=== PATIENT | female | born 1975 | race Caucasian/White ===

== ENCOUNTER 2016-02-21 12:34 | Emergency (ER) | payer OTHER ==
[~2016-02-21 12:34] MED LIST: ACET30TAB PO; ALBU17IN INH; CLEO300C2 PO; IBUP-1114 PO
[2016-02-21] MEDS ORDERED: methylPREDNISolone INJ 125 MG/2 ML VIAL (J2930) As Ordered ONE (14:06)
[2016-02-21] MEDS ORDERED: MORPHINE 4 MG/ML 1ML SYRINGE As Ordered ONE (14:06)
--- NOTE | 2016-02-21 14:46 | EDDOCDS ---
Nurse's Notes [facility] Name: Anjali Roach Age: 40 yrs Sex: Female : 1975 Arrival Date: 02/21/2016 Time: 12:34 Bed TR8 Private MD: NO PRIMARY PHYSICIAN, . Diagnosis: Lumbago with sciatica, left side Presentation: 02/20 12:38 Presenting complaint: Patient states: Low back and left hip pain began yesterday no mlb1 known injury. Acute neurological deficits are not present. Mechanism of Injury: No Mechanism of Injury. Adult Sepsis Screening: The patient does not have new or worsening altered mentation. Patient's respiratory rate is less than 22. Systolic blood pressure is greater than 100. Patient has a qSOFA score of 0- Negative Sepsis Screen. Suicide/Homicide risk assessment- the patient denies having any suicidal and/or homicidal ideations and does not present with any other emotional, behavioral or mental health complaints. Status: Patient is not a automotive service assistant or dependent. Transition of care: patient was not received from another setting of care. 12:38 Acuity: MIKKI Level 4 mlb1 12:38 Method Of Arrival: Walkin/Carried/Asstd mlb1 Triage Assessment: 12:40 General: Appears in no apparent distress, Behavior is appropriate for age, cooperative. mlb1 Pain: Location: low back area, left hip Pain currently is 8 out of 10 on a pain scale. HIV screening NA for this visit Offered previously. Musculoskeletal: Range of motion intact in all extremities. Historical: - Allergies: Flexeril (Hives); Toradol (Hives, Swelling); - Home Meds: 1. ibuprofen 800 mg Oral tab every 8 hours as needed (Last dose: 02/21/2016 11:30) - PMHx: Asthma; bursitis left hip; Chronic Back and Hip Pain; Migraines; Rheumatoid Arthritis; - PSHx: Tubal ligation; oral surgery; - Social history: Smoking status: Patient uses tobacco products, heavy tobacco smoker. No barriers to communication noted, The patient speaks fluent Cymraes, Speaks appropriately for age. - Family history: Not pertinent. - : The pt / caregiver states he / she is not on anticoagulants. Home medication list is obtained from the patient. - Exposure Risk Screening:: None identified. Screenin:13 Screening information is obtained from the patient. Fall risk: No risks identified. ms18 Assistance ADL's: requires no assistance with activities of daily living. Abuse/DV Screen: The patient / caregiver reports he/she is: not in a situation that causes fear, pain or injury. Nutritional screening: No deficits noted. Advance Directives: There is no living will. home support is adequate. Assessment: 14:13 General: Appears in no apparent distress, comfortable, Behavior is appropriate for age, ms18 cooperative. Pain: Location: left lower back and left hip Pain currently is 9 out of 10 on a pain scale. Neurological: No deficits noted. Respiratory: No deficits noted. Derm: Skin is pink, warm & dry. 14:42 General: Appears in no apparent distress, comfortable, obese, Behavior is appropriate ttb for age, cooperative, pleasant. General: PT states that the site where she had the morphine injection is itching a little bit. Looked at the area and it was slightly reddened. Pt states that she feels fine and denies and SOB. Provider informed of this. PT ambulating with no assistance. Pain: Pain currently is 5 out of 10 on a pain scale. Neurological: No deficits noted. Respiratory: No deficits noted. Derm: Skin is pink, warm & dry. Vital Signs: 12:37 BP 116 / 78; Pulse 93; Resp 18; Temp 98.4; Pulse Ox 100% ; Weight 108.86 kg; Height 5 elp ft. 2 in. (157.48 cm); Pain 8/10; 14:39 BP 135 / 83; Pulse 96; Resp 18; Pulse Ox 100% ; Pain 5/10; ms18 14:39 Pain 5/10; ms18 12:37 Body Mass Index 43.90 (108.86 kg, 157.48 cm) [facility] Vitals: 12:37 Log In Time: February 21, 2016 at 12:35. [facility] ED Course: 12:35 Patient visited by Juanita Logan PCA. elp 12:35 Patient moved to Waiting elp 12:36 NO PRIMARY PHYSICIAN, . is Private Physician. elp 12:36 Patient moved to Pre RCE elp 12:37 Patient visited by Juanita Logan PCA. elp 12:38 Patient visited by Corky Hdz, RN. mlb1 12:39 Triage Initiated mlb1 12:40 Patient visited by Corky Hdz RN. mlb1 13:37 Patient moved to Triage 2 mlb1 13:54 Bernard [facility]ord[facility]. cc10 13:54 Ophelia Daniels MD is Attending Physician. cc10 13:54 Patient visited by Bernard Giordano PA-C. cc10 13:54 Patient visited by Bernard Giordano PA-C. cc10 14:13 Patient visited by Kathie Tijerina RN. ms18 14:13 The patient / caregiver is instructed regarding the plan of care and ED course. ms18 Accompanied by Significant Other, Patient has correct armband on for positive identification. Property :Personal belongings accompany Pt. 14:13 No IV's were initiated during this patient's visit. No procedures done that require ms18 assistance. 14:31 [facility] is Referral Physician. cc10 14:40 Patient moved to TR8 ms18 14:42 [facility] Payment Agreement was scanned into [employer] and attached to record. mm15 Administered Medications: 14:13 Drug: methylPREDNISolone Sodium Succinate 125 mg [methylprednisolone sodium succ 125 mg ms18 solution for injection (125 mg)] Route: IM; Site: right gluteus; 14:39 Follow up: Response: No Adverse Reaction ms18 14:13 Drug: morphine 4 mg [morphine 4 mg/mL intravenous cartridge (1 mL)] Route: IM; Site: ms18 left gluteus; 14:39 Follow up: Pain 5/10 Adult; Response: No Adverse Reaction; Pain is decreased ms18 Order Results: There are currently no results for this order. Outcome: 14:31 Discharge ordered by Provider. cc10 14:42 Discharge Assessment: Patient awake, alert and oriented x 3. No cognitive and/or ttb functional deficits noted. Patient verbalized understanding of disposition instructions. patient administered narcotics - yes. Pt provided with safe discharge. The following High Risk Discharge criteria are identified: None. Discharged to home ambulatory. Condition: good Condition: stable Condition: improved. Discharge instructions given to patient, Instructed on discharge instructions, follow up and referral plans. medication usage, Demonstrated understanding of instructions, medications, Pt was receptive of discharge instructions/ teaching. Prescriptions given X 2. Instructed on no driving heavy equipment. No special radiology studies were completed. 14:45 Patient left the ED. ttb Signatures: Corky Hdz RN RN mlb1 Judith Espinosa, RN RN ttb Jw Quintero mm15 Juanita Logan, PLANNING INTERN PLANNING INTERN elp Bernard Giordano, KALLIEC PAAnaC cc10 Kathie Tijerina,RN RN ms18 MTDD
--- NOTE | 2016-02-21 14:46 | EDDOCDS ---
Physician Documentation [facility] Name: Anjali Roach Age: 40 yrs Sex: Female : 1975 Arrival Date: 02/21/2016 Time: 12:34 Bed TR8 Private MD: NO PRIMARY PHYSICIAN, . Disposition: 02/21/16 14:31 Discharged to Home/Self Care. Impression: Lumbago with sciatica, left side. - Condition is Stable. - Discharge Instructions: Sciatica. - Prescriptions for Ultram 50 mg Oral Tablet - take 1 tablet by ORAL route every 6 hours As needed MDD: 4 tabs; 16 tablet. Prednisone 20 mg Oral Tablet - take 2 tablet by ORAL route once daily for 5 days; 10 tablet. - Medication Reconciliation, Local Pharmacy Hours form. - Follow up: Emergency Department; When: As needed; Reason: Worsening of conditions. Follow up: [facility], [place] [facility]; When: Call to arrange an appointment; Reason: Wound/Symptom Recheck, Recheck today's complaints, Continuance of care. - Problem is chronic. - Symptoms have improved. Historical: - Allergies: Flexeril (Hives); Toradol (Hives, Swelling); - Home Meds: 1. ibuprofen 800 mg Oral tab every 8 hours as needed (Last dose: 02/21/2016 11:30) - PMHx: Asthma; bursitis left hip; Chronic Back and Hip Pain; Migraines; Rheumatoid Arthritis; - PSHx: Tubal ligation; oral surgery; - Social history: Smoking status: Patient uses tobacco products, heavy tobacco smoker. No barriers to communication noted, The patient speaks fluent Kuwaiti, Speaks appropriately for age. - Family history: Not pertinent. - : The pt / caregiver states he / she is not on anticoagulants. Home medication list is obtained from the patient. - Exposure Risk Screening:: None identified. Vital Signs: 02/20 12:37 BP 116 / 78; Pulse 93; Resp 18; Temp 98.4; Pulse Ox 100% ; Weight 108.86 kg / 240 lbs; elp Height 5 ft. 2 in. (157.48 cm); Pain 8/10; 14:39 BP 135 / 83; Pulse 96; Resp 18; Pulse Ox 100% ; Pain 5/10; ms18 14:39 Pain 5/10; ms18 12:37 Body Mass Index 43.90 (108.86 kg, 157.48 cm) elp MDM: 14:00 methylPREDNISolone Sodium Succinate 125 mg IM once ordered. cc10 14:00 morphine 4 mg IM once ordered. cc10 14:42 Financial registration complete. mm15 14:42 [facility] Payment Agreement was scanned into [employer] and attached to record. mm15 Administered Medications: 14:13 Drug: methylPREDNISolone Sodium Succinate 125 mg [methylprednisolone sodium succ 125 mg ms18 solution for injection (125 mg)] Route: IM; Site: right gluteus; 14:39 Follow up: Response: No Adverse Reaction ms18 14:13 Drug: morphine 4 mg [morphine 4 mg/mL intravenous cartridge (1 mL)] Route: IM; Site: ms18 left gluteus; 14:39 Follow up: Pain 5/10 Adult; Response: No Adverse Reaction; Pain is decreased ms18 Signatures: Corky Hdz RN RN mlb1 Judith Espinosa RN RN ttb Jw Quintero mm15 Bernard Giordano, PABethany PA-Nikita cc10 Kathie Tijerina RN RN ms18 The chart was reviewed and I authenticate all verbal orders and agree with the evaluation and treatment provided.Attachments: 14:42 [facility] Payment Agreement mm15 MTDD
--- NOTE | 2016-02-23 15:46 | EDDOCDS ---
Physician Documentation [facility] Name: Anjali Roach Age: 40 yrs Sex: Female : 1975 Arrival Date: 02/21/2016 Time: 12:34 Bed TR8 Private MD: NO PRIMARY PHYSICIAN, . Disposition: 02/21/16 14:31 Discharged to Home/Self Care. Impression: Lumbago with sciatica, left side. - Condition is Stable. - Discharge Instructions: Sciatica. - Prescriptions for Ultram 50 mg Oral Tablet - take 1 tablet by ORAL route every 6 hours As needed MDD: 4 tabs; 16 tablet. Prednisone 20 mg Oral Tablet - take 2 tablet by ORAL route once daily for 5 days; 10 tablet. - Medication Reconciliation, Local Pharmacy Hours form. - Follow up: Emergency Department; When: As needed; Reason: Worsening of conditions. Follow up: [facility], [place] [facility]; When: Call to arrange an appointment; Reason: Wound/Symptom Recheck, Recheck today's complaints, Continuance of care. - Problem is chronic. - Symptoms have improved. Historical: - Allergies: Flexeril (Hives); Toradol (Hives, Swelling); - Home Meds: 1. ibuprofen 800 mg Oral tab every 8 hours as needed (Last dose: 02/21/2016 11:30) - PMHx: Asthma; bursitis left hip; Chronic Back and Hip Pain; Migraines; Rheumatoid Arthritis; - PSHx: Tubal ligation; oral surgery; - Social history: Smoking status: Patient uses tobacco products, heavy tobacco smoker. No barriers to communication noted, The patient speaks fluent Swedish, Speaks appropriately for age. - Family history: Not pertinent. - : The pt / caregiver states he / she is not on anticoagulants. Home medication list is obtained from the patient. - Exposure Risk Screening:: None identified. Vital Signs: 02/20 12:37 BP 116 / 78; Pulse 93; Resp 18; Temp 98.4; Pulse Ox 100% ; Weight 108.86 kg / 240 lbs; elp Height 5 ft. 2 in. (157.48 cm); Pain 8/10; 14:39 BP 135 / 83; Pulse 96; Resp 18; Pulse Ox 100% ; Pain 5/10; ms18 14:39 Pain 5/10; ms18 12:37 Body Mass Index 43.90 (108.86 kg, 157.48 cm) elp MDM: 14:00 methylPREDNISolone Sodium Succinate 125 mg IM once ordered. cc10 14:00 morphine 4 mg IM once ordered. cc10 14:42 Financial registration complete. mm15 14:42 [facility] Payment Agreement was scanned into [employer] and attached to record. mm15 17:17 T-Sheet-- Draft Copy was scanned into [employer] and attached to record. klr Administered Medications: 14:13 Drug: methylPREDNISolone Sodium Succinate 125 mg [methylprednisolone sodium succ 125 mg ms18 solution for injection (125 mg)] Route: IM; Site: right gluteus; 14:39 Follow up: Response: No Adverse Reaction ms18 14:13 Drug: morphine 4 mg [morphine 4 mg/mL intravenous cartridge (1 mL)] Route: IM; Site: ms18 left gluteus; 14:39 Follow up: Pain 5/10 Adult; Response: No Adverse Reaction; Pain is decreased ms18 Signatures: Corky Hdz RN RN mlb1 Judith Espinosa RN RN ttb Jw Quintero mm15 Bernard Giordano PAAnaC PA-C cc10 Kathie Tijerina RN RN ms18 Suzy Roland klr The chart was reviewed and I authenticate all verbal orders and agree with the evaluation and treatment provided.Attachments: 14:42 [facility] Payment Agreement mm15 17:17 T-Sheet-- Draft Copy klr Chart Complete MTDD
--- NOTE | 2016-02-23 15:46 | EDDOCDS ---
Nurse's Notes [facility] Name: Anjali Roach Age: 40 yrs Sex: Female : 1975 Arrival Date: 02/21/2016 Time: 12:34 Bed TR8 Private MD: NO PRIMARY PHYSICIAN, . Diagnosis: Lumbago with sciatica, left side Presentation: 02/20 12:38 Presenting complaint: Patient states: Low back and left hip pain began yesterday no mlb1 known injury. Acute neurological deficits are not present. Mechanism of Injury: No Mechanism of Injury. Adult Sepsis Screening: The patient does not have new or worsening altered mentation. Patient's respiratory rate is less than 22. Systolic blood pressure is greater than 100. Patient has a qSOFA score of 0- Negative Sepsis Screen. Suicide/Homicide risk assessment- the patient denies having any suicidal and/or homicidal ideations and does not present with any other emotional, behavioral or mental health complaints. Status: Patient is not a vocational services specialist or dependent. Transition of care: patient was not received from another setting of care. 12:38 Acuity: MIKKI Level 4 mlb1 12:38 Method Of Arrival: Walkin/Carried/Asstd mlb1 Triage Assessment: 12:40 General: Appears in no apparent distress, Behavior is appropriate for age, cooperative. mlb1 Pain: Location: low back area, left hip Pain currently is 8 out of 10 on a pain scale. HIV screening NA for this visit Offered previously. Musculoskeletal: Range of motion intact in all extremities. Historical: - Allergies: Flexeril (Hives); Toradol (Hives, Swelling); - Home Meds: 1. ibuprofen 800 mg Oral tab every 8 hours as needed (Last dose: 02/21/2016 11:30) - PMHx: Asthma; bursitis left hip; Chronic Back and Hip Pain; Migraines; Rheumatoid Arthritis; - PSHx: Tubal ligation; oral surgery; - Social history: Smoking status: Patient uses tobacco products, heavy tobacco smoker. No barriers to communication noted, The patient speaks fluent Bolivian, Speaks appropriately for age. - Family history: Not pertinent. - : The pt / caregiver states he / she is not on anticoagulants. Home medication list is obtained from the patient. - Exposure Risk Screening:: None identified. Screenin:13 Screening information is obtained from the patient. Fall risk: No risks identified. ms18 Assistance ADL's: requires no assistance with activities of daily living. Abuse/DV Screen: The patient / caregiver reports he/she is: not in a situation that causes fear, pain or injury. Nutritional screening: No deficits noted. Advance Directives: There is no living will. home support is adequate. Assessment: 14:13 General: Appears in no apparent distress, comfortable, Behavior is appropriate for age, ms18 cooperative. Pain: Location: left lower back and left hip Pain currently is 9 out of 10 on a pain scale. Neurological: No deficits noted. Respiratory: No deficits noted. Derm: Skin is pink, warm & dry. 14:42 General: Appears in no apparent distress, comfortable, obese, Behavior is appropriate ttb for age, cooperative, pleasant. General: PT states that the site where she had the morphine injection is itching a little bit. Looked at the area and it was slightly reddened. Pt states that she feels fine and denies and SOB. Provider informed of this. PT ambulating with no assistance. Pain: Pain currently is 5 out of 10 on a pain scale. Neurological: No deficits noted. Respiratory: No deficits noted. Derm: Skin is pink, warm & dry. Vital Signs: 12:37 BP 116 / 78; Pulse 93; Resp 18; Temp 98.4; Pulse Ox 100% ; Weight 108.86 kg; Height 5 elp ft. 2 in. (157.48 cm); Pain 8/10; 14:39 BP 135 / 83; Pulse 96; Resp 18; Pulse Ox 100% ; Pain 5/10; ms18 14:39 Pain 5/10; ms18 12:37 Body Mass Index 43.90 (108.86 kg, 157.48 cm) [facility] Vitals: 12:37 Log In Time: February 21, 2016 at 12:35. [facility] ED Course: 12:35 Patient visited by Juanita Logan PCA. elp 12:35 Patient moved to Waiting elp 12:36 NO PRIMARY PHYSICIAN, . is Private Physician. elp 12:36 Patient moved to Pre RCE elp 12:37 Patient visited by Juanita Logan PCA. elp 12:38 Patient visited by Corky Hdz, RN. mlb1 12:39 Triage Initiated mlb1 12:40 Patient visited by Corky Hdz RN. mlb1 13:37 Patient moved to Triage 2 mlb1 13:54 Bernard Giordano PA-C is PHCP. cc10 13:54 Ophelia Daniels MD is Attending Physician. cc10 13:54 Patient visited by Bernard Giordano PA-C. cc10 13:54 Patient visited by Bernard Giordano PA-C. cc10 14:13 Patient visited by Kathie Tijerina RN. ms18 14:13 The patient / caregiver is instructed regarding the plan of care and ED course. ms18 Accompanied by Significant Other, Patient has correct armband on for positive identification. Property :Personal belongings accompany Pt. 14:13 No IV's were initiated during this patient's visit. No procedures done that require ms18 assistance. 14:31 [facility] is Referral Physician. cc10 14:40 Patient moved to TR8 ms18 14:42 [facility] Payment Agreement was scanned into [employer] and attached to record. mm15 17:17 T-Sheet-- Draft Copy was scanned into [employer] and attached to record. klr Administered Medications: 14:13 Drug: methylPREDNISolone Sodium Succinate 125 mg [methylprednisolone sodium succ 125 mg ms18 solution for injection (125 mg)] Route: IM; Site: right gluteus; 14:39 Follow up: Response: No Adverse Reaction ms18 14:13 Drug: morphine 4 mg [morphine 4 mg/mL intravenous cartridge (1 mL)] Route: IM; Site: ms18 left gluteus; 14:39 Follow up: Pain 5/10 Adult; Response: No Adverse Reaction; Pain is decreased ms18 Order Results: There are currently no results for this order. Outcome: 14:31 Discharge ordered by Provider. cc10 14:42 Discharge Assessment: Patient awake, alert and oriented x 3. No cognitive and/or ttb functional deficits noted. Patient verbalized understanding of disposition instructions. patient administered narcotics - yes. Pt provided with safe discharge. The following High Risk Discharge criteria are identified: None. Discharged to home ambulatory. Condition: good Condition: stable Condition: improved. Discharge instructions given to patient, Instructed on discharge instructions, follow up and referral plans. medication usage, Demonstrated understanding of instructions, medications, Pt was receptive of discharge instructions/ teaching. Prescriptions given X 2. Instructed on no driving heavy equipment. No special radiology studies were completed. 14:45 Patient left the ED. ttb Signatures: Corky Hdz RN RN mlb1 Judith Espinosa RN RN ttb Jw Quintero mm15 Juanita Logan, JOELLE STUDENT WORKER Bernard Roman PAAnaC PAAnaC cc10 Kathie Tijerina RN RN ms18 Suzy Roland Chart Complete MTDD
--- NOTE | 2016-02-23 15:46 | EDDOCDS ---
Physician Documentation [facility] Name: Anjali Roach Age: 40 yrs Sex: Female : 1975 Arrival Date: 02/21/2016 Time: 12:34 Bed TR8 Private MD: NO PRIMARY PHYSICIAN, . Disposition: 02/21/16 14:31 Discharged to Home/Self Care. Impression: Lumbago with sciatica, left side. - Condition is Stable. - Discharge Instructions: Sciatica. - Prescriptions for Ultram 50 mg Oral Tablet - take 1 tablet by ORAL route every 6 hours As needed MDD: 4 tabs; 16 tablet. Prednisone 20 mg Oral Tablet - take 2 tablet by ORAL route once daily for 5 days; 10 tablet. - Medication Reconciliation, Local Pharmacy Hours form. - Follow up: Emergency Department; When: As needed; Reason: Worsening of conditions. Follow up: [facility], [place] [facility]; When: Call to arrange an appointment; Reason: Wound/Symptom Recheck, Recheck today's complaints, Continuance of care. - Problem is chronic. - Symptoms have improved. Historical: - Allergies: Flexeril (Hives); Toradol (Hives, Swelling); - Home Meds: 1. ibuprofen 800 mg Oral tab every 8 hours as needed (Last dose: 02/21/2016 11:30) - PMHx: Asthma; bursitis left hip; Chronic Back and Hip Pain; Migraines; Rheumatoid Arthritis; - PSHx: Tubal ligation; oral surgery; - Social history: Smoking status: Patient uses tobacco products, heavy tobacco smoker. No barriers to communication noted, The patient speaks fluent Nicaraguan, Speaks appropriately for age. - Family history: Not pertinent. - : The pt / caregiver states he / she is not on anticoagulants. Home medication list is obtained from the patient. - Exposure Risk Screening:: None identified. Vital Signs: 02/20 12:37 BP 116 / 78; Pulse 93; Resp 18; Temp 98.4; Pulse Ox 100% ; Weight 108.86 kg / 240 lbs; elp Height 5 ft. 2 in. (157.48 cm); Pain 8/10; 14:39 BP 135 / 83; Pulse 96; Resp 18; Pulse Ox 100% ; Pain 5/10; ms18 14:39 Pain 5/10; ms18 12:37 Body Mass Index 43.90 (108.86 kg, 157.48 cm) elp MDM: 14:00 methylPREDNISolone Sodium Succinate 125 mg IM once ordered. cc10 14:00 morphine 4 mg IM once ordered. cc10 14:42 Financial registration complete. mm15 14:42 [facility] Payment Agreement was scanned into [email or web address] and attached to record. mm15 17:17 T-Sheet-- Draft Copy was scanned into [email or web address] and attached to record. klr Administered Medications: 14:13 Drug: methylPREDNISolone Sodium Succinate 125 mg [methylprednisolone sodium succ 125 mg ms18 solution for injection (125 mg)] Route: IM; Site: right gluteus; 14:39 Follow up: Response: No Adverse Reaction ms18 14:13 Drug: morphine 4 mg [morphine 4 mg/mL intravenous cartridge (1 mL)] Route: IM; Site: ms18 left gluteus; 14:39 Follow up: Pain 5/10 Adult; Response: No Adverse Reaction; Pain is decreased ms18 Signatures: Corky Hdz RN RN mlb1 Judith Espinosa RN RN ttb Jw Quintero mm15 Bernard Giordano PAAnaC PA-C cc10 Kathie Tijerina RN RN ms18 Suzy Roland klr The chart was reviewed and I authenticate all verbal orders and agree with the evaluation and treatment provided.Attachments: 14:42 [facility] Payment Agreement mm15 17:17 T-Sheet-- Draft Copy klr Chart Complete MTDD
== END 2016-02-21 14:45 | disposition home or self-care (01) ==
LOC: M ED 12:34
DX: M54.32 Sciatica, left side (principal); J45.909 Unspecified asthma, uncomplicated; M70.72 Other bursitis of hip, left hip; G89.29 Other chronic pain; M25.552 Pain in left hip; M06.9 Rheumatoid arthritis, unspecified; Z72.0 Tobacco use; Z88.6 Allergy status to analgesic agent; Z88.8 Allergy status to other drugs, medicaments and biological substances
CPT/HCPCS: 96372; 99283; J2930

== ENCOUNTER 2016-02-29 19:04 | Emergency (ER) | payer OTHER ==
--- NOTE | 2016-02-29 20:37 | EDDOCDS ---
Physician Documentation [facility] Name: Anjali Roach Age: 40 yrs Sex: Female : 1975 Arrival Date: 02/29/2016 Time: 19:04 Bed TR7 Private MD: NO PRIMARY PHYSICIAN, . Disposition: 02/29/16 20:28 Discharged to Home/Self Care. Impression: Low back pain, Pain in left hip. - Condition is Stable. - Discharge Instructions: Back Pain, Adult. - Prescriptions for Ultram 50 mg Oral Tablet - take 1 tablet by ORAL route every 6 hours As needed MDD: 4 tabs; 10 tablet. Prednisone 20 mg Oral Tablet - take 2 tablets by ORAL route once daily for 4 days; 8 tablet. - Medication Reconciliation, Local Pharmacy Hours form. - Follow up: Emergency Department; When: As needed; Reason: Worsening of conditions. Follow up: Private Physician; When: 4 - 5 days; Reason: Wound/Symptom Recheck, Recheck today's complaints, Continuance of care. - Problem is new. - Symptoms are unchanged. Historical: - Allergies: Flexeril (Hives); Toradol (Hives, Swelling); - Home Meds: 1. ibuprofen 800 mg Oral tab every 8 hours as needed (Last dose: 02/29/2016 18:30) - PMHx: Asthma; bursitis left hip; Chronic Back and Hip Pain; Migraines; Rheumatoid Arthritis; - PSHx: Tubal ligation; oral surgery; - Social history: Smoking status: Patient uses tobacco products, heavy tobacco smoker. Patient/guardian denies using alcohol, street drugs, No barriers to communication noted, The patient speaks fluent Sudanese, Speaks appropriately for age. - Family history: Not pertinent. - : The pt / caregiver states he / she is not on anticoagulants. Home medication list is obtained from the patient. - Exposure Risk Screening:: None identified. 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 2 in. (157.48 cm) (R); Pain 6/10; 20:22 BP 121 / 73; Pulse 110; Resp 18; Temp 98.2; Pulse Ox 99% ; Pain 9/10; lf1 19:06 Body Mass Index 43.90 (108.86 kg, 157.48 cm) gr2 MDM: 20:16 ED course: PT FELL LAST NIGHT AND HAS BEEN HAVING PAIN IN THE LOW BACK AND LEFT dt4 HIP SINCE THAT TIME. PT STATES CALLED ORTHOPEDICS AND HAS AN APPT SCHEDULED FOR 03/04/16, AND ALSO HAS AN APPT WITH PAIN MANAGEMENT ON THAT DAY. WAS SEEN LAST WEEK IN THE ED FOR SAME AND WAS GIVEN PREDNISONE AND ULTRAM AND THIS HELPED HER PAIN. . Signatures: Elizabeth Chand RN RN lf1 Judith Espinosa RN RN ttb Anila Dorsey PA-C PA-C dt4 [facility]
--- NOTE | 2016-02-29 20:37 | EDDOCDS ---
Nurse's Notes [facility] Name: Anjali Roach Age: 40 yrs Sex: Female : 1975 Arrival Date: 02/29/2016 Time: 19:04 Bed TR7 Private MD: NO PRIMARY PHYSICIAN, . Diagnosis: Low back pain;Pain in left hip Presentation: 02/28 19:35 Presenting complaint: Patient states: lower back pain and left hip pain since last ttb night. Ongoing issue. No new injury. Acute neurological deficits are not present. Mechanism of Injury: No Mechanism of Injury. Adult Sepsis Screening: The patient does not have new or worsening altered mentation. Patient's respiratory rate is less than 22. Systolic blood pressure is greater than 100. Patient has a qSOFA score of 0- Negative Sepsis Screen. Suicide/Homicide risk assessment- the patient denies having any suicidal and/or homicidal ideations and does not present with any other emotional, behavioral or mental health complaints. 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 Transition of care: patient was not received from another setting of care. 19:35 Acuity: MIKKI Level 5 ttb 19:35 Method Of Arrival: Walkin/Carried/Asstd ttb Triage Assessment: 19:37 General: Appears in no apparent distress, well nourished, Behavior is appropriate for ttb age, cooperative. Pain: Location: lower back and left hip 9/10. HIV screening NA for this visit Offered previously. Neurological: Level of Consciousness is awake, alert. Neurological: Denies weakness numbness. Cardiovascular: Chest pain is denied. Respiratory: No deficits noted. Airway is patent Denies cough, shortness of breath. Derm: Skin is normal. Musculoskeletal: Range of motion intact in all extremities. 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 ibuprofen 800 mg Oral tab every 8 hours as needed (Last dose: 02/29/2016 18:30) - PMHx: Asthma; bursitis left hip; Chronic Back and Hip Pain; Migraines; Rheumatoid Arthritis; - PSHx: Tubal ligation; oral surgery; - Social history: Smoking status: Patient uses tobacco products, heavy tobacco smoker. Patient/guardian denies using alcohol, street drugs, No barriers to communication noted, The patient speaks fluent Venezuelan, Speaks appropriately for age. - Family history: Not pertinent. - : The pt / caregiver states he / she is not on anticoagulants. Home medication list is obtained from the patient. - Exposure Risk Screening:: None identified. Screenin:18 Screening information is obtained from the patient. Fall risk: No risks identified. lf1 Assistance ADL's: requires no assistance with activities of daily living. Abuse/DV Screen: The patient / caregiver reports he/she is: not in a situation that causes fear, pain or injury. Nutritional screening: No deficits noted. Advance Directives: Currently, there is no health care proxy. There is no active DNR order. home support is adequate. Assessment: 20:18 Adult Sepsis Screening: The patient does not have new or worsening altered mentation. lf1 Patient's respiratory rate is less than 22. Systolic blood pressure is greater than 100. Patient has a qSOFA score of 0- Negative Sepsis Screen. General: Appears in no apparent distress, comfortable, Behavior is cooperative. Pain: Location: lumbar area, left low back and right low back Pain currently is 9 out of 10 on a pain scale. Pain began chronic that was worsened after fall several days ago in the snow. Neurological: Level of Consciousness is awake, alert, Oriented to person, place, time. EENT: No deficits noted. Cardiovascular: Chest pain is denied. Respiratory: Respiratory effort is even, unlabored. GI: Abdomen is obese, Denies incontinence. : Denies incontinence, vaginal bleeding. Derm: Skin is normal. Injury Description: pt fell. 20:35 General: Appears in no apparent distress, comfortable. Respiratory: Respiratory effort lf1 is even, unlabored. Vital Signs: 19:06 BP 117 / 81; Pulse 115; Resp 18 S; Temp 98.5(O); Pulse Ox 98% on R/A; Weight 108.86 kg gr2 (R); Height 5 ft. 2 in. (157.48 cm) (R); Pain 6/10; 20:22 BP 121 / 73; Pulse 110; Resp 18; Temp 98.2; Pulse Ox 99% ; Pain 9/10; lf1 19:06 Body Mass Index 43.90 (108.86 kg, 157.48 cm) gr2 Vitals: 19:06 Log In Time: February 29, 2016 at 19:00. gr2 ED Course: 19:05 Patient visited by Stanislaw Bauman. gr2 19:05 Patient moved to Waiting gr2 19:06 NO PRIMARY PHYSICIAN, . is Private Physician. gr2 19:07 Patient visited by Stanislaw Bauman. gr2 19:07 Patient moved to Pre RCE gr2 19:36 Triage Initiated ttb 19:38 Patient visited by Judith Espinosa RN. ttb 19:49 Patient moved to Triage 1 rs3 19:50 Anila Dorsey PA-C is PHCP. dt4 19:50 Daniel Llanos DO is Attending Physician. dt4 19:50 Patient visited by Anila Dorsey PA-C. dt4 19:52 Patient moved to TR8 lf1 19:58 Patient moved to Triage 1 rs3 20:18 The patient / caregiver is instructed regarding the plan of care and ED course. lf1 20:20 Patient visited by Elizabeth Chand RN. lf1 20:22 Patient visited by Elizabeth Chand RN. lf1 20:35 Patient moved to TR7 ar3 20:35 No IV's were initiated during this patient's visit. No procedures done that require lf1 assistance. Order Results: There are currently no results for this order. Outcome: 20:28 Discharge ordered by Provider. dt4 20:35 Discharge Assessment: Patient awake, alert and oriented x 3. No cognitive and/or lf1 functional deficits noted. Patient verbalized understanding of disposition instructions. Patient awake and alert. Oriented to person, place and time. Patient verbalized understanding of disposition instructions. Patient has no functional deficits. patient administered narcotics - no. The following High Risk Discharge criteria are identified: None. Discharged to home ambulatory. Condition: improved. Discharge instructions given to patient, Instructed on discharge instructions, follow up and referral plans. medication usage, no driving heavy equipment, Demonstrated understanding of instructions, medications, Pt was receptive of discharge instructions/ teaching. Prescriptions given X 2. No special radiology studies were completed. Property :Personal belongings accompany Pt. 20:36 Patient left the ED. lf1 Signatures: Elizabeth Chand RN RN lf1 Rosangela Cerda RN RN rs3 Kasey De León, GLAZING SUPERINTENDENT GLAZING SUPERINTENDENT ar3 Judith Espinosa RN RN ttb Stanislaw Bauman gr2 Anila Dorsey, CHRISTOPH PAAnaC dt4 MTDD
--- NOTE | 2016-03-02 21:37 | EDDOCDS ---
Physician Documentation [facility] Name: Anjali Roach Age: 40 yrs Sex: Female : 1975 Arrival Date: 02/29/2016 Time: 19:04 Bed TR7 Private MD: NO PRIMARY PHYSICIAN, . Disposition: 02/29/16 20:28 Discharged to Home/Self Care. Impression: Low back pain, Pain in left hip. - Condition is Stable. - Discharge Instructions: Back Pain, Adult. - Prescriptions for Ultram 50 mg Oral Tablet - take 1 tablet by ORAL route every 6 hours As needed MDD: 4 tabs; 10 tablet. Prednisone 20 mg Oral Tablet - take 2 tablets by ORAL route once daily for 4 days; 8 tablet. - Medication Reconciliation, Local Pharmacy Hours form. - Follow up: Emergency Department; When: As needed; Reason: Worsening of conditions. Follow up: Private Physician; When: 4 - 5 days; Reason: Wound/Symptom Recheck, Recheck today's complaints, Continuance of care. - Problem is new. - Symptoms are unchanged. Historical: - Allergies: Flexeril (Hives); Toradol (Hives, Swelling); - Home Meds: 1. ibuprofen 800 mg Oral tab every 8 hours as needed (Last dose: 02/29/2016 18:30) - PMHx: Asthma; bursitis left hip; Chronic Back and Hip Pain; Migraines; Rheumatoid Arthritis; - PSHx: Tubal ligation; oral surgery; - Social history: Smoking status: Patient uses tobacco products, heavy tobacco smoker. Patient/guardian denies using alcohol, street drugs, No barriers to communication noted, The patient speaks fluent [place], Speaks appropriately for age. - Family history: Not pertinent. - : The pt / caregiver states he / she is not on anticoagulants. Home medication list is obtained from the patient. - Exposure Risk Screening:: None identified. 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 2 in. (157.48 cm) (R); Pain 6/10; 20:22 BP 121 / 73; Pulse 110; Resp 18; Temp 98.2; Pulse Ox 99% ; Pain 9/10; lf1 19:06 Body Mass Index 43.90 (108.86 kg, 157.48 cm) gr2 MDM: 20:16 ED course: PT FELL LAST NIGHT AND HAS BEEN HAVING PAIN IN THE LOW BACK AND LEFT dt4 HIP SINCE THAT TIME. PT CALLED ORTHOPEDICS AND HAS AN APPT SCHEDULED FOR 03/04/16, AND ALSO HAS AN APPT WITH PAIN MANAGEMENT ON THAT DAY. WAS SEEN LAST WEEK IN THE ED FOR SAME AND WAS GIVEN PREDNISONE AND ULTRAM AND THIS HELPED HER PAIN. . 20:38 Financial registration complete. [facility] :[facility] Payment Agreement was scanned into [employer] and attached to record. [facility] 03/01 01:04 T-Sheet-- Draft Copy was scanned into [employer] and attached to record. hs2 11:31 Other: DRUG UTILIZATION REPORT was scanned into [employer] and attached to record. gb Signatures: Maranda Lora, Reg Reg gb Elizabeth ChandRN RN lf1 Judith Espinosa RN RN ttb Anila Dorsey, CHRISTOPH PABethany dt4 Corky Viramontes, Reg Reg mpb Deja Jovel, Reg Reg hs2 The chart was reviewed and I authenticate all verbal orders and agree with the evaluation and treatment provided.Attachments: 02/28 20:39 [facility] Payment Agreement [facility] 03/01 01:04 T-Sheet-- Draft Copy hs2 Chart Complete MTDD
--- NOTE | 2016-03-02 21:37 | EDDOCDS ---
Physician Documentation [facility] Name: Anjali Roach Age: 40 yrs Sex: Female : 1975 Arrival Date: 02/29/2016 Time: 19:04 Bed TR7 Private MD: NO PRIMARY PHYSICIAN, . Disposition: 02/29/16 20:28 Discharged to Home/Self Care. Impression: Low back pain, Pain in left hip. - Condition is Stable. - Discharge Instructions: Back Pain, Adult. - Prescriptions for Ultram 50 mg Oral Tablet - take 1 tablet by ORAL route every 6 hours As needed MDD: 4 tabs; 10 tablet. Prednisone 20 mg Oral Tablet - take 2 tablets by ORAL route once daily for 4 days; 8 tablet. - Medication Reconciliation, Local Pharmacy Hours form. - Follow up: Emergency Department; When: As needed; Reason: Worsening of conditions. Follow up: Private Physician; When: 4 - 5 days; Reason: Wound/Symptom Recheck, Recheck today's complaints, Continuance of care. - Problem is new. - Symptoms are unchanged. Historical: - Allergies: Flexeril (Hives); Toradol (Hives, Swelling); - Home Meds: 1. ibuprofen 800 mg Oral tab every 8 hours as needed (Last dose: 02/29/2016 18:30) - PMHx: Asthma; bursitis left hip; Chronic Back and Hip Pain; Migraines; Rheumatoid Arthritis; - PSHx: Tubal ligation; oral surgery; - Social history: Smoking status: Patient uses tobacco products, heavy tobacco smoker. Patient/guardian denies using alcohol, street drugs, No barriers to communication noted, The patient speaks fluent Macanese, Speaks appropriately for age. - Family history: Not pertinent. - : The pt / caregiver states he / she is not on anticoagulants. Home medication list is obtained from the patient. - Exposure Risk Screening:: None identified. 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 2 in. (157.48 cm) (R); Pain 6/10; 20:22 BP 121 / 73; Pulse 110; Resp 18; Temp 98.2; Pulse Ox 99% ; Pain 9/10; lf1 19:06 Body Mass Index 43.90 (108.86 kg, 157.48 cm) gr2 MDM: 20:16 ED course: PT FELL LAST NIGHT AND HAS BEEN HAVING PAIN IN THE LOW BACK AND LEFT dt4 HIP SINCE THAT TIME. PT CALLED ORTHOPEDICS AND HAS AN APPT SCHEDULED FOR 03/04/16, AND ALSO HAS AN APPT WITH PAIN MANAGEMENT ON THAT DAY. WAS SEEN LAST WEEK IN THE ED FOR SAME AND WAS GIVEN PREDNISONE AND ULTRAM AND THIS HELPED HER PAIN. . 20:38 Financial registration complete. [facility] :39 [facility] Payment Agreement was scanned into [employer] and attached to record. [facility] 03/01 01:04 T-Sheet-- Draft Copy was scanned into [employer] and attached to record. hs2 11:31 Other: DRUG UTILIZATION REPORT was scanned into [employer] and attached to record. gb Signatures: Maranda Lora, Reg Reg gb Elizabeth ChandRN RN lf1 Judith Espinosa RN RN ttb Anila Dorsey, CHRISTOPH PABethany dt4 Corky Viramotnes, Reg Reg mpb Deja Jovel, Reg Reg hs2 The chart was reviewed and I authenticate all verbal orders and agree with the evaluation and treatment provided.Attachments: 02/28 20:39 [facility] Payment Agreement [facility] 03/01 01:04 T-Sheet-- Draft Copy hs2 Chart Complete MTDD
--- NOTE | 2016-03-02 21:38 | EDDOCDS ---
Nurse's Notes [facility] Name: Anjali Roach Age: 40 yrs Sex: Female : 1975 Arrival Date: 02/29/2016 Time: 19:04 Bed TR7 Private MD: NO PRIMARY PHYSICIAN, . Diagnosis: Low back pain;Pain in left hip Presentation: 02/28 19:35 Presenting complaint: Patient states: lower back pain and left hip pain since last ttb night. Ongoing issue. No new injury. Acute neurological deficits are not present. Mechanism of Injury: No Mechanism of Injury. Adult Sepsis Screening: The patient does not have new or worsening altered mentation. Patient's respiratory rate is less than 22. Systolic blood pressure is greater than 100. Patient has a qSOFA score of 0- Negative Sepsis Screen. Suicide/Homicide risk assessment- the patient denies having any suicidal and/or homicidal ideations and does not present with any other emotional, behavioral or mental health complaints. 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 Transition of care: patient was not received from another setting of care. 19:35 Acuity: MIKKI Level 5 ttb 19:35 Method Of Arrival: Walkin/Carried/Asstd ttb Triage Assessment: 19:37 General: Appears in no apparent distress, well nourished, Behavior is appropriate for ttb age, cooperative. Pain: Location: lower back and left hip 9/10. HIV screening NA for this visit Offered previously. Neurological: Level of Consciousness is awake, alert. Neurological: Denies weakness numbness. Cardiovascular: Chest pain is denied. Respiratory: No deficits noted. Airway is patent Denies cough, shortness of breath. Derm: Skin is normal. Musculoskeletal: Range of motion intact in all extremities. 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 ibuprofen 800 mg Oral tab every 8 hours as needed (Last dose: 02/29/2016 18:30) - PMHx: Asthma; bursitis left hip; Chronic Back and Hip Pain; Migraines; Rheumatoid Arthritis; - PSHx: Tubal ligation; oral surgery; - Social history: Smoking status: Patient uses tobacco products, heavy tobacco smoker. Patient/guardian denies using alcohol, street drugs, No barriers to communication noted, The patient speaks fluent Stateless, Speaks appropriately for age. - Family history: Not pertinent. - : The pt / caregiver states he / she is not on anticoagulants. Home medication list is obtained from the patient. - Exposure Risk Screening:: None identified. Screenin:18 Screening information is obtained from the patient. Fall risk: No risks identified. lf1 Assistance ADL's: requires no assistance with activities of daily living. Abuse/DV Screen: The patient / caregiver reports he/she is: not in a situation that causes fear, pain or injury. Nutritional screening: No deficits noted. Advance Directives: Currently, there is no health care proxy. There is no active DNR order. home support is adequate. Assessment: 20:18 Adult Sepsis Screening: The patient does not have new or worsening altered mentation. lf1 Patient's respiratory rate is less than 22. Systolic blood pressure is greater than 100. Patient has a qSOFA score of 0- Negative Sepsis Screen. General: Appears in no apparent distress, comfortable, Behavior is cooperative. Pain: Location: lumbar area, left low back and right low back Pain currently is 9 out of 10 on a pain scale. Pain began chronic that was worsened after fall several days ago in the snow. Neurological: Level of Consciousness is awake, alert, Oriented to person, place, time. EENT: No deficits noted. Cardiovascular: Chest pain is denied. Respiratory: Respiratory effort is even, unlabored. GI: Abdomen is obese, Denies incontinence. : Denies incontinence, vaginal bleeding. Derm: Skin is normal. Injury Description: pt fell. 20:35 General: Appears in no apparent distress, comfortable. Respiratory: Respiratory effort lf1 is even, unlabored. Vital Signs: 19:06 BP 117 / 81; Pulse 115; Resp 18 S; Temp 98.5(O); Pulse Ox 98% on R/A; Weight 108.86 kg gr2 (R); Height 5 ft. 2 in. (157.48 cm) (R); Pain 6/10; 20:22 BP 121 / 73; Pulse 110; Resp 18; Temp 98.2; Pulse Ox 99% ; Pain 9/10; lf1 19:06 Body Mass Index 43.90 (108.86 kg, 157.48 cm) gr2 Vitals: 19:06 Log In Time: February 29, 2016 at 19:00. gr2 ED Course: 19:05 Patient visited by Stanislaw Bauman. gr2 19:05 Patient moved to Waiting gr2 19:06 NO PRIMARY PHYSICIAN, . is Private Physician. gr2 19:07 Patient visited by Stanislaw Bauman. gr2 19:07 Patient moved to Pre RCE gr2 19:36 Triage Initiated ttb 19:38 Patient visited by Judith Espinosa RN. ttb 19:49 Patient moved to Triage 1 rs3 19:50 Anila Dorsey PA-C is PHCP. dt4 19:50 Daniel Llanos DO is Attending Physician. dt4 19:50 Patient visited by Anila Dorsey PA-C. dt4 19:52 Patient moved to TR8 lf1 19:58 Patient moved to Triage 1 rs3 20:18 The patient / caregiver is instructed regarding the plan of care and ED course. lf1 20:20 Patient visited by Elizabeth Chand RN. lf1 20:22 Patient visited by Elizabeth Chand RN. lf1 20:35 Patient moved to TR7 ar3 20:35 No IV's were initiated during this patient's visit. No procedures done that require lf1 assistance. 20:39 [facility] Payment Agreement was scanned into [employer] and attached to record. mpb 03/01 01:04 T-Sheet-- Draft Copy was scanned into [employer] and attached to record. hs2 11:31 Other: DRUG UTILIZATION REPORT was scanned into [employer] and attached to record. gb Order Results: There are currently no results for this order. Outcome: 02/28 20:28 Discharge ordered by Provider. dt4 20:35 Discharge Assessment: Patient awake, alert and oriented x 3. No cognitive and/or lf1 functional deficits noted. Patient verbalized understanding of disposition instructions. Patient awake and alert. Oriented to person, place and time. Patient verbalized understanding of disposition instructions. Patient has no functional deficits. patient administered narcotics - no. The following High Risk Discharge criteria are identified: None. Discharged to home ambulatory. Condition: improved. Discharge instructions given to patient, Instructed on discharge instructions, follow up and referral plans. medication usage, no driving heavy equipment, Demonstrated understanding of instructions, medications, Pt was receptive of discharge instructions/ teaching. Prescriptions given X 2. No special radiology studies were completed. Property :Personal belongings accompany Pt. 20:36 Patient left the ED. lf1 Signatures: Maranda Lora, Reg Reg gb Elizabeth ChandRN RN lf1 Rosangela Cerda RN RN rs3 Kasey De León, REGISTERED NURSE CARDIOVASCULAR ICU REGISTERED NURSE CARDIOVASCULAR ICU ar3 Judith Espinosa RN RN ttb Stanislaw Bauman gr2 Anila Dorsey PA-C PABethany dt4 Corky Viramontes, Reg Reg mpb Deja Jovel, Reg Reg hs2 Chart Complete MTDD
== END 2016-02-29 20:36 | disposition home or self-care (01) ==
LOC: M ED 19:04
DX: M54.5 Low back pain (principal); M25.552 Pain in left hip; J45.909 Unspecified asthma, uncomplicated; M70.62 Trochanteric bursitis, left hip; G43.909 Migraine, unspecified, not intractable, without status migrainosus; M05.40 Rheumatoid myopathy with rheumatoid arthritis of unspecified site; F17.210 Nicotine dependence, cigarettes, uncomplicated; Z79.1 Long term (current) use of non-steroidal anti-inflammatories (NSAID); Z88.8 Allergy status to other drugs, medicaments and biological substances

== ENCOUNTER → 2016-03-03 | Outpatient (CLI) | payer OTHER ==
[~2016-03-03] MED LIST changes: +BUPIVACAINE HCL 0.25% 30 ML VIAL As Ordered ONE; +ISOVUE-M 300 61% 15ML VIAL (Q9967) As Ordered ONE; +LIDOCAINE 1% SDV INJ 30 ML VIAL As Ordered ONE; +TRIAMCINOLONE ACETONIDE SUSP 40 MG/ML VIAL (J3301) As Ordered ONE; +diazePAM 5 MG TAB As Ordered ONE; +oxyCODONE 5MG TAB As Ordered ONE
--- NOTE | 2016-03-03 15:07 | REP ---
PARTIAL SI JOINT SERIES: THREE VIEWS. HISTORY: SI joint block for pain. 14 seconds of fluoroscopy time is reported. FINDINGS: A sequence of three fluoroscopically obtained intraprocedural spot radiographs of the SI joint on the left document needle position associated with SI joint injection. Signed by Nilson Coffey MD 03/03/2016 03:11 P
--- NOTE | 2016-03-08 00:34 | ECWPNPC ---
PATIENT NAME: MADY PERSON : 1975 GENDER: FEMALE VISIT DATE: 03/03/2016 DISCHARGE DATE: 03/03/16 1236 VISIT LOCKED DATE TIME: PHYSICIAN: MAYNOR ARZATE RESOURCE: MAYNOR ARZATE REASON FOR APPOINTMENT 1. SIJ HISTORY OF PRESENT ILLNESS HISTORY OF PRESENT ILLNESS: PAIN THE PATIENT DESCRIBES THE PAIN... FALL RISK SCREENING: SCREENING :NO FALLS IN THE PAST YEAR CURRENT MEDICATIONS TAKING IBUPROFEN 800 MG TABLET 1 TABLET ORALLY FOUR TIMES DAILY NEEDED, NOTES: 03/02/16 2300 MEDICATION LIST REVIEWED AND RECONCILED WITH THE PATIENT PAST MEDICAL HISTORY ASTHMA UTI KINDEY INFECTION PARTIAL BLADDER PROLAPSE BACK PAIN ARTHRITIS RIGHT HIP BURSITIS FAINTING/DIZZINESS ALLERGIES KETOROLAC TROMETHAMINE: FACIAL SWELLING/HIVES FLEXERIL: MOUTH SWELLING/HIVES SOCIAL HISTORY GENERAL: TOBACCO USE ARE YOU A:NONSMOKER LEARNING BARRIERS / SPECIAL NEEDS ORIENTED TO PLAN OF CARE: PATIENT, PAIN MANAGEMENT PATIENT, ORIENTED TO PLAN OF CARE: PATIENT, PAIN MANAGEMENT PATIENT. NEW PATIENT PAIN DIARY TODAY'S VISITNOTES FROM 0-10, WHAT LEVEL IS YOUR PAIN TODAY?0 PAIN CLINIC PFS, CLERGY, PUBLIC HEALTH REFERRALS PFS REFERRAL NEEDED?NO CLERGY REFERRAL NEEDED?NO PUBLIC HEALTH REFERRAL NEEDED?NO WAS THE PROVIDER NOTIFIED OF ANY PERTINENT INFO?NO PFS REFERRAL NEEDED?NO CLERGY REFERRAL NEEDED?NO PUBLIC HEALTH REFERRAL NEEDED?NO WAS THE PROVIDER NOTIFIED OF ANY PERTINENT INFO?NO REVIEW OF SYSTEMS CONSTITUTIONAL: ANY CHANGE IN YOUR MEDICAL CONDITION? NO . CHILLS NO . FEVER NO . INFECTION: DO YOU HAVE NEW INFECTIONS? NO . DO YOU HAVE HISTORY OF MRSA? NO . MUSCULOSKELETAL: ANY NEW PATTERNS OF PAIN OR NUMBNESS? NO . GASTROENTEROLOGY: ANY NEW CHANGE IN BOWEL CONTROL? NO . GENITOURINARY: ANY NEW CHANGE IN BLADDER CONTROL? NO . IS THERE A CHANCE YOU COULD BE ? NO . HEMATOLOGY/LYMPH: DO YOU TAKE ANY BLOOD THINNERS? (FOR EXAMPLE- COUMADIN, PLAVIX, AGGRENOX, PLATEL, PRADAXA, OR XARELTO) NO . WHEN WAS YOUR LAST DOSE? DATE: TIME: . NEUROLOGY: HAVE YOU FALLEN IN THE PAST 6 MONTHS? NO . ANY NEW EXTREMITY NUMBNESS OR WEAKNESS? NO . CARDIOLOGY: DO YOU HAVE A PACEMAKER OR DEFIBRILLATOR? NO . RESPIRATORY: HAVE YOU BEEN SICK IN THE PAST WEEK? NO . FEVER NO . FLU LIKE SYMPTOMS? NO . COUGH NO . INTEGUMENTARY: DO YOU HAVE ANY RASHES OR OPEN SORES? NO . ALLERGIC/IMMUNO: ARE YOU ALLERGIC TO SHELLFISH OR IV DYE? NO . ANY NEW ALLERGIES? NO . PSYCHIATRIC: DO YOU HAVE THOUGHTS OF HURTING YOURSELF OR SOMEONE ELSE? NO . ARE YOU ABUSED, NEGLECTED, OR IN AN UNSAFE ENVIRONMENT? NO . ENDOCRINOLOGY: ARE YOU DIABETIC? NO . OTHER: DO YOU NEED ANY PRESCRIPTIONS? NO . IF YES, PLEASE LIST: ____ . ANY NEW PROBLEMS WITH YOUR MEDICATIONS? NO . WHEN DID YOU LAST EAT? ____03/02/162199 . WHEN DID YOU LAST DRINK? ____03/03/162199 . WHAT DID YOU LAST DRINK? ____SODA . NAME OF PERSON DRIVING YOU HOME? ____ALGER REFF . DO YOU HAVE ANY OTHER QUESTIONS OR CONCERNS NO . REVIEWED BY: PROVIDER: . VITAL SIGNS WT 240 LBS, HT 62 IN, BMI 43.89 INDEX, BP 118/71 MM HG, HR 93 /MIN, RR 16 /MIN, TEMP 96.0 F, OXYGEN SAT % 98, NA INITIALS TL 1036, REVIEWED BY: YUE. ASSESSMENTS SACROILIITIS, NOT ELSEWHERE CLASSIFIED - M46.1 (PRIMARY) PROCEDURES PN SI PRE PROCEDURE DIAGNOSIS SACROILIITIS, SACROILIAC JOINT DYSFUNCTION POST PROCEDURE DIAGNOSIS SACROILIITIS, SACROILIAC JOINT DYSFUNCTION PROCEDURE ., LEFT SACROILIAC JOINT BLOCK SURGEON DR. MAYNOR ARZATE SUPERVISOR CORRESPONDENCE SECTION NONE ANESTHESIA LOCAL PRE PROCEDURE NOTE PATIENT WITH HISTORY OF CHRONIC LOW BACK PAIN. I EVALUATED THE PATIENT AND REVIEWED THE CHART. I WENT OVER THE RISKS, ALTERNATIVES, AND BENEFITS ASSOCIATED WITH THIS PROCEDURE. THE PATIENT WOULD LIKE TO PROCEED AND GAVE CONSENT TO PERFORM THE PROCEDURE. THE PATIENT DENIES UNEXPLAINABLE WEIGHT LOSS, FEVER, CHILLS, OR NEW CHANGES IN URINARY OR BOWEL CONTROL DESCRIPTION OF PROCEDURE THE PATIENT WAS BROUGHT TO THE PROCEDURE ROOM AND PLACED IN THE PRONE POSITION. THE LUMBOSACRAL AREA WAS CLEANED WITH CHLORAPREP SOLUTION AND DRAPED ASEPTICALLY. THE PROCEDURE WAS DONE UNDER STERILE CONDITIONS. I CHECKED LATERALITY AND THE LEVEL WHERE THE PROCEDURE WAS GOING TO BE PERFORMED WITH THE PATIENT AND THE SUPPORTING STAFF AT THE MOMENT OF THE TIME OUT IN THE PROCEDURE ROOM. UNDER FLUOROSCOPIC GUIDANCE, TARGET POINT WAS SELECTED AT THE LOWER BORDER OF THE LEFT SACROILIAC JOINT. TARGET POINT WAS SELECTED AFTER MEDIAL ROTATION AND TILT OF THE MAGNIFIER OF THE C-ARM. LIDOCAINE WAS USED TO NUMB THE SKIN AND SUBCUTANEOUS TISSUE BELOW IT. A SPINAL NEEDLE, 22-GAUGE, WAS ADVANCED UNDER FLUOROSCOPIC GUIDANCE AND FOLLOWING PATIENT FEEDBACK UNTIL THE TARGET AREA WAS TOUCHED. THE POSITION OF THE NEEDLE WAS VERIFIED WITH AP AND LATERAL VIEWS. AFTER PROPER POSITION OF THE NEEDLE WAS ACHIEVED, ISOVUE M DYE 30%, 0.25 ML, WAS INJECTED SHOWING SPREAD OF THE DYE. THEN, A SOLUTION OF 20 MG OF KENALOG WAS INJECTED IN RIGHT JOINT WITH 3 ML OF BUPIVACAINE 0.125%. THERE WAS NO EVIDENCE OF BLOOD, PARESTHESIA OR CEREBROSPINAL FLUID DURING THE PROCEDURE. THE PATIENT WAS SENT TO THE RECOVERY ROOM. THE PATIENT WAS MOVING THE EXTREMITIES AND DOING WELL. THERE WAS NO COMPLICATION DURING THE PROCEDURE. FLUOROSCOPY TIME WAS 14 SECONDS POST PROCEDURE NOTE THE PATIENT WILL BE SEEN IN A FOLLOW UP IN THE NEXT FEW WEEKS. INSTRUCTIONS WERE GIVEN, QUESTIONS WERE ANSWERED, AND THE PATIENT EXPRESSED UNDERSTANDING AND AGREED WITH THE PLAN. INSTRUCTIONS WERE GIVEN, QUESTIONS WERE ANSWERED, PATIENT REPORTS UNDERSTANDING AND AGREES WITH THE PLAN. I, MELY BOURNE, DOCUMENTED THE ABOVE INFORMATION ACTING A SCRIBE FOR DR. ARZATE. I HAVE REVIEWED THE ABOVE DOCUMENT, WRITTEN BY MELY BOURNE SCRIBE AND I VERIFY THAT IT IS ACCURATE. DIAGNOSTIC IM[facility] FLUORO GUIDANCE (PAIN)[id number] PROCEDURE CODES 55680 INJECT SACROILIAC JOINT 6045F RADXPS IN END [id number] PXD FOLLOW UP 3 WEEKS ELECTRONICALLY SIGNED BY MAYNOR ARZATE MD ON 03/07/2016 AT 09:23 PM EST DISCLAIMER : THIS IS A VISIT SUMMARY EXTRACTED FROM THE [employer] CHART. IT IS NOT A COPY OF THE [employer] PROGRESS NOTE. MTDD
== END ==
LOC: M PAIN 10:50
PROVIDERS: ATTEND Anesthesiology
DX: G89.29 Other chronic pain (principal); M46.1 Sacroiliitis, not elsewhere classified; M54.5 Low back pain; Z88.8 Allergy status to other drugs, medicaments and biological substances
CPT/HCPCS: G0260; J3301; Q9967

== ENCOUNTER 2016-03-05 14:45 | Emergency (ER) | payer OTHER ==
[~2016-03-05 14:45] MED LIST changes: -BUPIVACAINE HCL 0.25% 30 ML VIAL As Ordered ONE; -ISOVUE-M 300 61% 15ML VIAL (Q9967) As Ordered ONE; -LIDOCAINE 1% SDV INJ 30 ML VIAL As Ordered ONE; -TRIAMCINOLONE ACETONIDE SUSP 40 MG/ML VIAL (J3301) As Ordered ONE; -diazePAM 5 MG TAB As Ordered ONE; -oxyCODONE 5MG TAB As Ordered ONE
[2016-03-05] MEDS ORDERED: NORCO, ANEXSIA 5/325MG TABLET (HYDROcodone/ACETAMINOPHEN) As Ordered ONE ×2 (17:28→22:20)
[2016-03-05] MEDS ORDERED: METHOCARBAMOL 500 MG TAB As Ordered ONE (17:29)
[2016-03-05 17:46] LABS: BASO % 0.2 % (0.0-1.0); EOS # 0.1 K/mm3 (0.0-0.50); EOS % 0.7 % (0.0-3.0); LARGE UNSTAINED CELL # 0.2 K/mm3 (0.0-0.4); LARGE UNSTAINED CELL % 0.9 % (0.0-4.0); LYMPH # 2.5 K/mm3 (1.5-4.5); LYMPH % 15.1 % (24.0-44.0); MEAN CORPUSCULAR HEMOGLOBIN 31.1 pg (27.0-33.0); MEAN CORPUSCULAR HGB CONC 34.9 g/dl (32.0-36.5); MONO # 0.4 K/mm3 (0.0-0.8); MONO % 2.6 % (0.0-5.0); NEUTROPHILS # 13.3 K/mm3 (1.8-7.7); NEUTROPHILS % 80.5 % (36.0-66.0); PLATELET COUNT, AUTOMATED 273 k/mm3 (150-450); RED CELL DISTRIBUTION WIDTH 12.7 % (11.5-14.5); WHITE BLOOD COUNT 16.6 K/mm3 (4.0-10.0)
[2016-03-05 18:03] LABS: ANION GAP 9 MEQ/L (8-16); BLOOD UREA NITROGEN 14 MG/DL (7-18); CALCIUM LEVEL 8.8 MG/DL (8.5-10.1); CARBON DIOXIDE LEVEL 23 MEQ/L (21-32); CHLORIDE LEVEL 109 MEQ/L (98-107); CREATININE FOR GFR 0.76 MG/DL (0.55-1.02); GLOMERULAR FILTRATION RATE > 60.0 (>58); GLUCOSE, FASTING 105 MG/DL (70-105); POTASSIUM SERUM 3.9 MEQ/L (3.5-5.1); SODIUM LEVEL 141 MEQ/L (136-145)
[2016-03-05 18:10] LABS: ERYTHROCYTE SEDIMENTATION RATE 17 mm/hr (0-20)
--- NOTE | 2016-03-05 22:20 | REPUSA ---
History: Rule out abscess. Procedure: Multiple sequences were obtained in the sagittal and axial planes with T1 and T2 weighting before and after the administration of intravenous contrast material. Findings: The conus medullaris and cauda equina appear normal. There is no significant marrow signal alteration. There is no evidence of fracture, spondylolisthesis, or spondylolysis. Examination of the individual interspaces reveals the following: L1-2: normal in configuration without herniation or spinal or foraminal stenosis. L2-3: normal in configuration without herniation or spinal or foraminal stenosis. L3-4: normal in configuration without herniation or spinal or foraminal stenosis. L4-5: normal in configuration without herniation or spinal or foraminal stenosis. L5-S1:normal in configuration without herniation or spinal or foraminal stenosis. Impression: 1. No abnormal enhancement. 2. Normal MRI of the lumbar spine Thank you for your kind referral of this patient.
[2016-03-05] MEDS ORDERED: NORCO 5/325MG TABLET (BULK) As Ordered ONE (22:38)
--- NOTE | 2016-03-05 22:48 | EDDOCDS ---
Physician Documentation [facility] Name: Anjali Roach Age: 40 yrs Sex: Female : 1975 Arrival Date: 03/05/2016 Time: 14:45 Bed I2 / M2 Private MD: Tash Pcp Disposition: 03/05/16 22:30 Discharged to Home/Self Care. Impression: Low back pain - S/P LUMBAR INJECTION. - Condition is Stable. - Discharge Instructions: Back Pain, Adult. - Prescriptions for Robaxin 500 mg Oral Tablet - take 2 tablet by ORAL route every 6 hours As needed; 40 tablet. [place] 5- 325 mg Oral Tablet - take 1 tablet by ORAL route every 6 hours As needed MDD: 4 tabs; 6 tablet. - Medication Reconciliation, Local Pharmacy Hours form. - Follow up: Private Physician; When: 1 - 2 days; Reason: Recheck today's complaints, Continuance of care. - Problem is new. - Symptoms have improved. - Notes: USE MEDICATION INSTRUTCED, FOLLOW UP WITH YOUR DOCTOR ON MONDAY Historical: - Allergies: Flexeril (Hives); Toradol (Hives, Swelling); - Home Meds: 1. ibuprofen 800 mg Oral tab every 8 hours as needed - PMHx: Asthma; bursitis left hip; Chronic Back and Hip Pain; Migraines; Rheumatoid Arthritis; - PSHx: Tubal ligation; oral surgery; - Social history: Smoking status: Patient uses tobacco products, heavy tobacco smoker. No barriers to communication noted, The patient speaks fluent Italian, Speaks appropriately for age. - Family history: Not pertinent. - : The pt / caregiver states he / she is not on anticoagulants. Home medication list is obtained from the patient. - Exposure Risk Screening:: None identified. 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 2 in. (157.48 cm) (R); 22:12 BP 124 / 82; Pulse 80; Resp 20 S; Pulse Ox 96% on R/A; Pain 9/10; ms2 14:46 Body Mass Index 43.90 (108.86 kg, 157.48 cm) dd6 MDM: 17:26 HYDROcodone-acetaminophen 5 mg-325 mg 1 tabs PO once ordered. ck7 17:26 Methocarbamol 1 grams PO once ordered. ck7 17:27 CBC with Diff Ordered. EDMS 17:27 MED Profile Ordered. EDMS 17:27 ESR Ordered. EDMS 17:27 CRP Ordered. EDMS 17:53 Financial registration complete. ks16 17:53 [facility] Payment Agreement was scanned into [employer]Plan and attached to record. ks16 18:07 CBC with Diff Reviewed. ck7 18:07 MED Profile Reviewed. ck7 18:07 CRP Reviewed. ck7 18:22 CBC with Diff Reviewed. ck7 18:22 ESR Reviewed. ck7 18:30 MRI Screening Tool - Place on chart, inform RN ordered. ck7 18:31 -MRI-Spine, Lumbar w/o foll by with con Ordered. EDMS 18:40 MRI Screening Tool - Place on chart, inform RN complete. dls 19:23 IV Saline Lock ordered. ck7 22:11 HYDROcodone-acetaminophen 5 mg-325 mg 1 tabs PO once ordered. ck7 22:29 HYDROcodone-acetaminophen 4 pack- 5 mg-325 mg 1 packets PO Per package directions; ck7 Dispense with patient. 1 po q4h prn for pain ordered. 22:45 -MRI-Spine, Lumbar w/o foll by with con Reviewed. ck7 Administered Medications: 17:31 Drug: HYDROcodone-acetaminophen 1 tabs [hydrocodone 5 mg-acetaminophen 325 mg tablet (1 ms18 tabs)] Route: PO; 17:31 Drug: Methocarbamol 1 grams [methocarbamol 500 mg tablet (2 tabs)] Route: PO; ms18 22:22 Drug: HYDROcodone-acetaminophen 1 tabs [hydrocodone 5 mg-acetaminophen 325 mg tablet (1 ms2 tabs)] Route: PO; 22:36 Drug: HYDROcodone-acetaminophen 4 pack- 1 packets [hydrocodone 5 mg-acetaminophen 325 ms2 mg tablet (1 tabs)] {Co-Signature: [id number] (Kathie Tijerina RN).} Route: PO; Signatures: Dispatcher MedHost EDMS Michele Aleman RN RN ms2 Gilma Arce RN RN dls Stephon Arredondo RPA-C [facility] Center[facility] Tye Shelton,RN RN roxanab Alma Packer, Reg Reg ks16 Kathie Tijerina RN ms18 Kathie Tijerina RN ms18 The chart was reviewed and I authenticate all verbal orders and agree with the evaluation and treatment provided.Attachments: 17:53 [facility] Payment Agreement [email or web address] MTDD
--- NOTE | 2016-03-05 22:48 | EDDOCDS ---
Nurse's Notes [facility] Name: Anjali Roach Age: 40 yrs Sex: Female : 1975 Arrival Date: 03/05/2016 Time: 14:45 Bed I2 / M2 Private MD: No Pcp Diagnosis: Low back pain-S/P LUMBAR INJECTION Presentation: 03/05 15:03 Presenting complaint: Patient states: Patient reports lower back pain. Patient reports jmb had injections in back morning and started back evening. Back pain is chronic. Patient seen by pain management for injections. Acute neurological deficits are not present. Mechanism of Injury: No Mechanism of Injury. Adult Sepsis Screening: The patient does not have new or worsening altered mentation. Patient's respiratory rate is less than 22. Systolic blood pressure is greater than 100. Patient has a qSOFA score of 0- Negative Sepsis Screen. Suicide/Homicide risk assessment- the patient denies having any suicidal and/or homicidal ideations and does not present with any other emotional, behavioral or mental health complaints. Status: Patient is not a director of volunteer services or dependent. Transition of care: patient was not received from another setting of care. 15:03 Acuity: MIKKI Level 4 [facility] 15:03 Method Of Arrival: Walkin/Carried/Asstd [facility] Triage Assessment: 15:04 General: Appears in no apparent distress, Behavior is appropriate for age, cooperative. [facility] Pain: Location: back Pain currently is 7 out of 10 on a pain scale. HIV screening NA for this visit Offered previously. Neurological: Level of Consciousness is awake, alert, obeys commands, Oriented to person, place, time, Speech is normal, Facial symmetry appears normal, Facial symmetry: tongue is midline. Respiratory: Airway is patent Respiratory effort is even, unlabored, Respiratory pattern is regular, symmetrical. GI: Abdomen is obese. Derm: Skin is pink, warm & dry. Musculoskeletal: Range of motion intact in all extremities. 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 ibuprofen 800 mg Oral tab every 8 hours as needed - PMHx: Asthma; bursitis left hip; Chronic Back and Hip Pain; Migraines; Rheumatoid Arthritis; - PSHx: Tubal ligation; oral surgery; - Social history: Smoking status: Patient uses tobacco products, heavy tobacco smoker. No barriers to communication noted, The patient speaks fluent Cymro, Speaks appropriately for age. - Family history: Not pertinent. - : The pt / caregiver states he / she is not on anticoagulants. Home medication list is obtained from the patient. - Exposure Risk Screening:: None identified. Screenin:31 Screening information is obtained from the patient. Fall risk: No risks identified. af2 Assistance ADL's: requires no assistance with activities of daily living. Abuse/DV Screen: The patient / caregiver reports he/she is: not in a situation that causes fear, pain or injury. Nutritional screening: No deficits noted. Advance Directives: Currently, there is no health care proxy. home support is adequate. Assessment: 19:23 General: Appears obese, Behavior is agitated, uncooperative, pt states to this property underwriter af2 "how much longer is this going to take, I have been here forever and I am still in pain." this property underwriter attempted to update and educate pt regarding plan of care, pt shouts at this property underwriter-- calling lawson quinones, this property underwriter left room. provider updated.. 20:00 General: Appears in no apparent distress, comfortable. Neurological: No deficits noted. ms2 Respiratory: No deficits noted. Respiratory: Airway is patent Respiratory effort is even, unlabored, Respiratory pattern is regular, symmetrical. Derm: Skin is pink, warm & dry. Musculoskeletal: No deficits noted. 21:20 General: Appears in no apparent distress, Behavior is agitated. Neurological: No ms2 deficits noted. Respiratory: No deficits noted. Derm: Skin is pink, warm & dry. 22:15 General: Appears in no apparent distress, pt states back pain is worse again--PA aware ms2 -order received. Behavior is agitated, anxious, cooperative, inappropriate for age, restless, with ptn MRI report. Neurological: Level of Consciousness is awake, alert, obeys commands. Respiratory: No deficits noted. GI: Abdomen is non- distended obese. Derm: Skin is pink, warm & dry. Musculoskeletal: No deficits noted. 22:22 General: medicated for pain ---given pillow to along side. ms2 22:46 General: Appears in no apparent distress, Behavior is cooperative. Pain: Pain currently ms2 is 8 out of 10 on a pain scale. Neurological: Level of Consciousness is awake, alert, obeys commands. Respiratory: No deficits noted. Airway is patent Respiratory effort is even, unlabored, Respiratory pattern is regular, symmetrical. GI: Abdomen is non- distended obese. Derm: Skin is pink, warm & dry. Musculoskeletal: Range of motion intact in all extremities. Vital Signs: 14:46 BP 132 / 81; Pulse 102; Resp 18 S; Temp 97.8(O); Pulse Ox 99% on R/A; Weight 108.86 kg dd6 (R); Height 5 ft. 2 in. (157.48 cm) (R); 22:12 BP 124 / 82; Pulse 80; Resp 20 S; Pulse Ox 96% on R/A; Pain 9/10; ms2 14:46 Body Mass Index 43.90 (108.86 kg, 157.48 cm) dd6 Vitals: 14:46 Log In Time: March 05, 2016 at 14:44. dd6 ED Course: 14:46 Patient visited by Charly Holt PCA. dd6 14:46 No Pcp is Private Physician. dd6 14:46 Patient moved to Waiting dd6 14:47 Patient moved to Pre RCE dd6 15:04 Triage Initiated jmb 16:28 No procedures done that require assistance. ms2 16:33 Patient moved to Triage 3 rs6 17:21 Stephon Arredondo RPA-C is PHCP. ck7 17:21 Ophelia Daniels MD is Attending Physician. ck7 17:21 Patient visited by Stephon Arredondo RPA-C. ck7 17:38 Patient moved to TR1 rs6 17:38 CRP Sent. rs6 17:38 ESR Sent. rs6 17:38 MED Profile Sent. rs6 17:38 CBC with Diff Sent. rs6 17:53 [facility] Payment Agreement was scanned into MEDHOST and attached to record. ks16 18:02 Patient moved to TR7 jmb 18:05 Patient moved to TR1 ms18 18:07 Patient visited by Stephon Arredondo RPA-C. ck7 18:29 Patient moved to I2 / M2 mlb1 18:40 Patient visited by Stephon Arredondo RPA-C. ck7 19:11 Patient visited by Sadie Baker RN. af2 19:32 Patient visited by Sadie Baker RN. af2 19:35 Patient visited by Michele Aleman RN. ms2 19:35 Inserted saline lock: 20 gauge in right antecubital area The patient tolerated the ms2 procedure well. 20:00 The patient / caregiver is instructed regarding the plan of care and ED course. ms2 20:05 Patient visited by Stephon Arredondo RPA-C. ck7 20:13 Patient moved to MRI ajs 20:48 Patient visited by Gabriela Hutchinson PCA. rs6 20:48 Patient moved to I2 / M2 rs6 21:19 Patient visited by Stephon Arredondo RPA-C. ck7 21:20 The patient / caregiver is instructed regarding the plan of care and ED course. ms2 21:20 IV is intact, is free of redness or swelling. ms2 22:00 Patient visited by Stephon Arredondo RPA-C. ck7 22:14 IV is intact, is free of redness or swelling. ms2 22:17 The patient / caregiver is instructed regarding the plan of care and ED course. ms2 22:25 -MRI-Spine, Lumbar w/o foll by with con Returned. EDMS 22:36 Patient visited by Michele Aleman RN. ms2 22:46 Patient visited by Michele Aleman RN. ms2 22:46 The patient / caregiver is instructed regarding the plan of care and ED course. ms2 Administered Medications: 17:31 Drug: HYDROcodone-acetaminophen 1 tabs [hydrocodone 5 mg-acetaminophen 325 mg tablet (1 ms18 tabs)] Route: PO; 17:31 Drug: Methocarbamol 1 grams [methocarbamol 500 mg tablet (2 tabs)] Route: PO; ms18 22:22 Drug: HYDROcodone-acetaminophen 1 tabs [hydrocodone 5 mg-acetaminophen 325 mg tablet (1 ms2 tabs)] Route: PO; 22:36 Drug: HYDROcodone-acetaminophen 4 pack- 1 packets [hydrocodone 5 mg-acetaminophen 325 ms2 mg tablet (1 tabs)] {Co-Signature: ms18 (Kathie Tijerina RN).} Route: PO; Order Results: Lab Order: CBC with Diff; SPEC'M 03/05/16 17:38 Test: WHITE BLOOD COUNT; Value: 16.6; Range: 4.0-10.0; Abnormal: Above high normal; Units: K/mm3; Status: F Test: RED BLOOD COUNT; Value: 4.72; Range: 4.00-5.40; Units: M/mm3; Status: F Test: HEMOGLOBIN; Value: 14.7; Range: 12.0-16.0; Units: g/dl; Status: F Test: HEMATOCRIT; Value: 42.0; Range: 36.0-47.0; Units: %; Status: F Test: MEAN CORPUSCULAR VOLUME; Value: 89.0; Range: 80.0-96.0; Units: fl; Status: F Test: MEAN CORPUSCULAR HEMOGLOBIN; Value: 31.1; Range: 27.0-33.0; Units: pg; Status: F Test: MEAN CORPUSCULAR HGB CONC; Value: 34.9; Range: 32.0-36.5; Units: g/dl; Status: F Test: RED CELL DISTRIBUTION WIDTH; Value: 12.7; Range: 11.5-14.5; Units: %; Status: F Test: PLATELET COUNT, AUTOMATED; Value: 273; Range: 150-450; Units: k/mm3; Status: F Test: NEUTROPHILS %; Value: 80.5; Range: 36.0-66.0; Abnormal: Above high normal; Units: %; Status: F Test: LYMPH %; Value: 15.1; Range: 24.0-44.0; Abnormal: Below low normal; Units: %; Status: F Test: MONO %; Value: 2.6; Range: 0.0-5.0; Units: %; Status: F Test: EOS %; Value: 0.7; Range: 0.0-3.0; Units: %; Status: F Test: BASO %; Value: 0.2; Range: 0.0-1.0; Units: %; Status: F Test: LARGE UNSTAINED CELL %; Value: 0.9; Range: 0.0-4.0; Units: %; Status: F Test: NEUTROPHILS #; Value: 13.3; Range: 1.8-7.7; Abnormal: Above high normal; Units: K/mm3; Status: F Test: LYMPH #; Value: 2.5; Range: 1.5-4.5; Units: K/mm3; Status: F Test: MONO #; Value: 0.4; Range: 0.0-0.8; Units: K/mm3; Status: F Test: EOS #; Value: 0.1; Range: 0.0-0.50; Units: K/mm3; Status: F Test: BASO #; Value: 0.0; Range: 0.0-0.2; Units: K/mm3; Status: F Test: LARGE UNSTAINED CELL #; Value: 0.2; Range: 0.0-0.4; Units: K/mm3; Status: F Lab Order: MED Profile; SPEC'M 03/05/16 17:38 Test: GLUCOSE, FASTING; Value: 105; Range: 70-105; Units: MG/DL; Status: F Test: BLOOD UREA NITROGEN; Value: 14; Range: 7-18; Units: MG/DL; Status: F Test: CREATININE FOR GFR; Value: 0.76; Range: 0.55-1.02; Units: MG/DL; Status: F Test: GLOMERULAR FILTRATION RATE; Value: > 60.0; Range: >58; Status: F Test: SODIUM LEVEL; Value: 141; Range: 136-145; Units: MEQ/L; Status: F Test: POTASSIUM SERUM; Value: 3.9; Range: 3.5-5.1; Units: MEQ/L; Status: F Test: CHLORIDE LEVEL; Value: 109; Range: 98-107; Abnormal: Above high normal; Units: MEQ/L; Status: F Test: CARBON DIOXIDE LEVEL; Value: 23; Range: 21-32; Units: MEQ/L; Status: F Test: ANION GAP; Value: 9; Range: 8-16; Units: MEQ/L; Status: F Test: CALCIUM LEVEL; Value: 8.8; Range: 8.5-10.1; Units: MG/DL; Status: F Test Note: ; Units are mL/min/1.73 m2 Chronic Kidney Disease Staging per NKF: Stage I & II GFR >=60 Normal to Mildly Decreased Stage III GFR 30-59 Moderately Decreased Stage IV GFR 15-29 Severely Decreased Stage V GFR <15 Very Little GFR Left ESRD GFR <15 on REGIONAL REFRIGERATED CDL TRUCK DRIVER Lab Order: ESR; SPEC'M 03/05/16 17:38 Test: ERYTHROCYTE SEDIMENTATION RATE; Value: 17; Range: 0-20; Units: mm/hr; Status: F Lab Order: CRP; SPEC'M 03/05/16 17:38 Test: C REACTIVE PROTEIN QUANTITATIV; Value: < 0.30; Range: 0.00-0.30; Units: MG/DL; Status: F Radiology Order: -MRI-Spine, Lumbar w/o foll by with con Test: -MRI-Spine, Lumbar w/o foll by with con REASON FOR EXAMINATION: RECENT L SPINE INJECTION, R/O ABSCESS; ; History: Rule out abscess.; Procedure: Multiple sequences were obtained in the sagittal and axial planes with T1 and T2 weighting; before and after the administration of intravenous contrast material.; Findings: The conus medullaris and cauda equina appear normal. There is no significant marrow signal; alteration. There is no evidence of fracture, spondylolisthesis, or spondylolysis.; Examination of the individual interspaces reveals the following:; L1-2: normal in configuration without herniation or spinal or foraminal stenosis.; L2-3: normal in configuration without herniation or spinal or foraminal stenosis.; L3-4: normal in configuration without herniation or spinal or foraminal stenosis.; L4-5: normal in configuration without herniation or spinal or foraminal stenosis.; L5-S1:normal in configuration without herniation or spinal or foraminal stenosis.; Impression:; 1. No abnormal enhancement.; 2. Normal MRI of the lumbar spine; Thank you for your kind referral of this patient.; ; Outcome: 22:30 Discharge ordered by Provider. ck7 22:47 Discharge Assessment: patient administered narcotics - yes. Pt provided with safe ms2 discharge. The following High Risk Discharge criteria are identified: None. Discharged to home ambulatory, with significant other. Condition: stable. Discharge instructions given to patient, Instructed on discharge instructions, follow up and referral plans. medication usage, no driving heavy equipment, no drinking with medication, Demonstrated understanding of instructions, medications, Pt was receptive of discharge instructions/ teaching. Prescriptions given X [address] Study completed. Property sent home with patient. 22:47 Patient left the ED. ms2 Signatures: Dispatcher MedHost EDMS Michele Aleman,RN RN ms2 Corky Hdz RN RN mlb1 Charly Holt, POLY AREA SUPERVISOR POLY AREA SUPERVISOR dd6 Ana Cristina Enriquez Christopher, RPA-C RPA-Cck7 Tye Shelton,RN RN Kathie ZavalaRN RN ms18 Hutchinson, Gabriela, POLY AREA SUPERVISOR POLY AREA SUPERVISOR rs6 Olivia,Sadie,RN RN afAlma Rodarte, Reg Reg ks16 Kathie Tijerina RN ms18 Corrections: (The following items were deleted from the chart) 22:11 16:28 Inserted saline lock: 20 gauge in right antecubital area The patient tolerated ms2 the procedure well. ms2 MTDD
--- NOTE | 2016-03-07 23:48 | EDDOCDS ---
Physician Documentation [facility] Name: Anjali Roach Age: 40 yrs Sex: Female : 1975 Arrival Date: 03/05/2016 Time: 14:45 Bed I2 / M2 Private MD: Tash Pcp Disposition: 03/05/16 22:30 Discharged to Home/Self Care. Impression: Low back pain - S/P LUMBAR INJECTION. - Condition is Stable. - Discharge Instructions: Back Pain, Adult. - Prescriptions for Robaxin 500 mg Oral Tablet - take 2 tablet by ORAL route every 6 hours As needed; 40 tablet. [place] 5- 325 mg Oral Tablet - take 1 tablet by ORAL route every 6 hours As needed MDD: 4 tabs; 6 tablet. - Medication Reconciliation, Local Pharmacy Hours form. - Follow up: Private Physician; When: 1 - 2 days; Reason: Recheck today's complaints, Continuance of care. - Problem is new. - Symptoms have improved. - Notes: USE MEDICATION INSTRUTCED, FOLLOW UP WITH YOUR DOCTOR ON MONDAY Historical: - Allergies: Flexeril (Hives); Toradol (Hives, Swelling); - Home Meds: 1. ibuprofen 800 mg Oral tab every 8 hours as needed - PMHx: Asthma; bursitis left hip; Chronic Back and Hip Pain; Migraines; Rheumatoid Arthritis; - PSHx: Tubal ligation; oral surgery; - Social history: Smoking status: Patient uses tobacco products, heavy tobacco smoker. No barriers to communication noted, The patient speaks fluent Ugandan, Speaks appropriately for age. - Family history: Not pertinent. - : The pt / caregiver states he / she is not on anticoagulants. Home medication list is obtained from the patient. - Exposure Risk Screening:: None identified. 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 2 in. (157.48 cm) (R); 22:12 BP 124 / 82; Pulse 80; Resp 20 S; Pulse Ox 96% on R/A; Pain 9/10; ms2 14:46 Body Mass Index 43.90 (108.86 kg, 157.48 cm) dd6 MDM: 17:26 HYDROcodone-acetaminophen 5 mg-325 mg 1 tabs PO once ordered. ck7 17:26 Methocarbamol 1 grams PO once ordered. ck7 17:27 CBC with Diff Ordered. EDMS 17:27 MED Profile Ordered. EDMS 17:27 ESR Ordered. EDMS 17:27 CRP Ordered. EDMS 17:53 Financial registration complete. ks16 17:53 [facility] Payment Agreement was scanned into [employer] and attached to record. ks16 18:07 CBC with Diff Reviewed. ck7 18:07 MED Profile Reviewed. ck7 18:07 CRP Reviewed. ck7 18:22 CBC with Diff Reviewed. ck7 18:22 ESR Reviewed. ck7 18:30 MRI Screening Tool - Place on chart, inform RN ordered. ck7 18:31 -MRI-Spine, Lumbar w/o foll by with con Ordered. EDMS 18:40 MRI Screening Tool - Place on chart, inform RN complete. dls 19:23 IV Saline Lock ordered. ck7 22:11 HYDROcodone-acetaminophen 5 mg-325 mg 1 tabs PO once ordered. ck7 22:29 HYDROcodone-acetaminophen 4 pack- 5 mg-325 mg 1 packets PO Per package directions; ck7 Dispense with patient. 1 po q4h prn for pain ordered. 22:45 -MRI-Spine, Lumbar w/o foll by with con Reviewed. ck7 03/06 08:07 T-Sheet-- Draft Copy was scanned into [employer] and attached to record. [facility] Administered Medications: 03/05 17:31 Drug: HYDROcodone-acetaminophen 1 tabs [hydrocodone 5 mg-acetaminophen 325 mg tablet (1 ms18 tabs)] Route: PO; 17:31 Drug: Methocarbamol 1 grams [methocarbamol 500 mg tablet (2 tabs)] Route: PO; ms18 22:22 Drug: HYDROcodone-acetaminophen 1 tabs [hydrocodone 5 mg-acetaminophen 325 mg tablet (1 ms2 tabs)] Route: PO; 22:36 Drug: HYDROcodone-acetaminophen 4 pack- 1 packets [hydrocodone 5 mg-acetaminophen 325 ms2 mg tablet (1 tabs)] {Co-Signature: [email or web address] (Kathie Tijerina RN).} Route: PO; Signatures: Dispatcher MedHost Loki Donisele,RN RN ms2 Gilma Arce RN RN dls Stephon Arredondo, RPA-C RPA-Cck7 Tye SheltonRN RN Alma Cota, Reg Reg ks16 Hossein, Kathie Radford RN ms18 Kathie Tijerina RN ms18 The chart was reviewed and I authenticate all verbal orders and agree with the evaluation and treatment provided.Attachments: 17:53 [facility] Payment Agreement [email or web address] 03/06 08:07 T-Sheet-- Draft Copy [facility] Chart Complete MTDD
--- NOTE | 2016-03-07 23:48 | EDDOCDS ---
Nurse's Notes [facility] Name: Anjali Roach Age: 40 yrs Sex: Female : 1975 Arrival Date: 03/05/2016 Time: 14:45 Bed I2 / M2 Private MD: No Pcp Diagnosis: Low back pain-S/P LUMBAR INJECTION Presentation: 03/05 15:03 Presenting complaint: Patient states: Patient reports lower back pain. Patient reports jmb had injections in back morning and started back evening. Back pain is chronic. Patient seen by pain management for injections. Acute neurological deficits are not present. Mechanism of Injury: No Mechanism of Injury. Adult Sepsis Screening: The patient does not have new or worsening altered mentation. Patient's respiratory rate is less than 22. Systolic blood pressure is greater than 100. Patient has a qSOFA score of 0- Negative Sepsis Screen. Suicide/Homicide risk assessment- the patient denies having any suicidal and/or homicidal ideations and does not present with any other emotional, behavioral or mental health complaints. Status: Patient is not a food service director or dependent. Transition of care: patient was not received from another setting of care. 15:03 Acuity: MIKKI Level 4 [facility] 15:03 Method Of Arrival: Walkin/Carried/Asstd [facility] Triage Assessment: 15:04 General: Appears in no apparent distress, Behavior is appropriate for age, cooperative. [facility] Pain: Location: back Pain currently is 7 out of 10 on a pain scale. HIV screening NA for this visit Offered previously. Neurological: Level of Consciousness is awake, alert, obeys commands, Oriented to person, place, time, Speech is normal, Facial symmetry appears normal, Facial symmetry: tongue is midline. Respiratory: Airway is patent Respiratory effort is even, unlabored, Respiratory pattern is regular, symmetrical. GI: Abdomen is obese. Derm: Skin is pink, warm & dry. Musculoskeletal: Range of motion intact in all extremities. 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 ibuprofen 800 mg Oral tab every 8 hours as needed - PMHx: Asthma; bursitis left hip; Chronic Back and Hip Pain; Migraines; Rheumatoid Arthritis; - PSHx: Tubal ligation; oral surgery; - Social history: Smoking status: Patient uses tobacco products, heavy tobacco smoker. No barriers to communication noted, The patient speaks fluent Guinean, Speaks appropriately for age. - Family history: Not pertinent. - : The pt / caregiver states he / she is not on anticoagulants. Home medication list is obtained from the patient. - Exposure Risk Screening:: None identified. Screenin:31 Screening information is obtained from the patient. Fall risk: No risks identified. af2 Assistance ADL's: requires no assistance with activities of daily living. Abuse/DV Screen: The patient / caregiver reports he/she is: not in a situation that causes fear, pain or injury. Nutritional screening: No deficits noted. Advance Directives: Currently, there is no health care proxy. home support is adequate. Assessment: 19:23 General: Appears obese, Behavior is agitated, uncooperative, pt states to this technical proposal writer af2 "how much longer is this going to take, I have been here forever and I am still in pain." this technical proposal writer attempted to update and educate pt regarding plan of care, pt shouts at this technical proposal writer-- calling lawson quinones, this technical proposal writer left room. provider updated.. 20:00 General: Appears in no apparent distress, comfortable. Neurological: No deficits noted. ms2 Respiratory: No deficits noted. Respiratory: Airway is patent Respiratory effort is even, unlabored, Respiratory pattern is regular, symmetrical. Derm: Skin is pink, warm & dry. Musculoskeletal: No deficits noted. 21:20 General: Appears in no apparent distress, Behavior is agitated. Neurological: No ms2 deficits noted. Respiratory: No deficits noted. Derm: Skin is pink, warm & dry. 22:15 General: Appears in no apparent distress, pt states back pain is worse again--PA aware ms2 -order received. Behavior is agitated, anxious, cooperative, inappropriate for age, restless, with ptn MRI report. Neurological: Level of Consciousness is awake, alert, obeys commands. Respiratory: No deficits noted. GI: Abdomen is non- distended obese. Derm: Skin is pink, warm & dry. Musculoskeletal: No deficits noted. 22:22 General: medicated for pain ---given pillow to along side. ms2 22:46 General: Appears in no apparent distress, Behavior is cooperative. Pain: Pain currently ms2 is 8 out of 10 on a pain scale. Neurological: Level of Consciousness is awake, alert, obeys commands. Respiratory: No deficits noted. Airway is patent Respiratory effort is even, unlabored, Respiratory pattern is regular, symmetrical. GI: Abdomen is non- distended obese. Derm: Skin is pink, warm & dry. Musculoskeletal: Range of motion intact in all extremities. Vital Signs: 14:46 BP 132 / 81; Pulse 102; Resp 18 S; Temp 97.8(O); Pulse Ox 99% on R/A; Weight 108.86 kg dd6 (R); Height 5 ft. 2 in. (157.48 cm) (R); 22:12 BP 124 / 82; Pulse 80; Resp 20 S; Pulse Ox 96% on R/A; Pain 9/10; ms2 14:46 Body Mass Index 43.90 (108.86 kg, 157.48 cm) dd6 Vitals: 14:46 Log In Time: March 05, 2016 at 14:44. dd6 ED Course: 14:46 Patient visited by Charly Holt PCA. dd6 14:46 No Pcp is Private Physician. dd6 14:46 Patient moved to Waiting dd6 14:47 Patient moved to Pre RCE dd6 15:04 Triage Initiated jmb 16:28 No procedures done that require assistance. ms2 16:33 Patient moved to Triage 3 rs6 17:21 Stephon Arredondo RPA-C is PHCP. ck7 17:21 Ophelia Daniels MD is Attending Physician. ck7 17:21 Patient visited by Stephon Arredondo RPA-C. ck7 17:38 Patient moved to TR1 rs6 17:38 CRP Sent. rs6 17:38 ESR Sent. rs6 17:38 MED Profile Sent. rs6 17:38 CBC with Diff Sent. rs6 17:53 [facility] Payment Agreement was scanned into [employer] and attached to record. ks16 18:02 Patient moved to TR7 jmb 18:05 Patient moved to TR1 ms18 18:07 Patient visited by Stephon Arredondo RPA-C. ck7 18:29 Patient moved to I2 / M2 mlb1 18:40 Patient visited by Stephon Arredondo RPA-C. ck7 19:11 Patient visited by Sadie Baker RN. af2 19:32 Patient visited by Sadie Baker RN. af2 19:35 Patient visited by Michele Aleman RN. ms2 19:35 Inserted saline lock: 20 gauge in right antecubital area The patient tolerated the ms2 procedure well. 20:00 The patient / caregiver is instructed regarding the plan of care and ED course. ms2 20:05 Patient visited by Stephon Arredondo RPA-C. ck7 20:13 Patient moved to MRI ajs 20:48 Patient visited by Gabriela Hutchinson PCA. rs6 20:48 Patient moved to I2 / M2 rs6 21:19 Patient visited by Stephon Arredondo RPA-C. ck7 21:20 The patient / caregiver is instructed regarding the plan of care and ED course. ms2 21:20 IV is intact, is free of redness or swelling. ms2 22:00 Patient visited by Stephon Arredondo RPA-C. ck7 22:14 IV is intact, is free of redness or swelling. ms2 22:17 The patient / caregiver is instructed regarding the plan of care and ED course. ms2 22:25 -MRI-Spine, Lumbar w/o foll by with con Returned. EDMS 22:36 Patient visited by Michele Aleman RN. ms2 22:46 Patient visited by Michele Aleman RN. ms2 22:46 The patient / caregiver is instructed regarding the plan of care and ED course. ms2 03/06 08:07 T-Sheet-- Draft Copy was scanned into [employer] and attached to record. [facility] Administered Medications: 03/05 17:31 Drug: HYDROcodone-acetaminophen 1 tabs [hydrocodone 5 mg-acetaminophen 325 mg tablet (1 ms18 tabs)] Route: PO; 17:31 Drug: Methocarbamol 1 grams [methocarbamol 500 mg tablet (2 tabs)] Route: PO; ms18 22:22 Drug: HYDROcodone-acetaminophen 1 tabs [hydrocodone 5 mg-acetaminophen 325 mg tablet (1 ms2 tabs)] Route: PO; 22:36 Drug: HYDROcodone-acetaminophen 4 pack- 1 packets [hydrocodone 5 mg-acetaminophen 325 ms2 mg tablet (1 tabs)] {Co-Signature: ms18 (Kathie Tijerina RN).} Route: PO; Order Results: Lab Order: CBC with Diff; SPEC'M 03/05/16 17:38 Test: WHITE BLOOD COUNT; Value: 16.6; Range: 4.0-10.0; Abnormal: Above high normal; Units: K/mm3; Status: F Test: RED BLOOD COUNT; Value: 4.72; Range: 4.00-5.40; Units: M/mm3; Status: F Test: HEMOGLOBIN; Value: 14.7; Range: 12.0-16.0; Units: g/dl; Status: F Test: HEMATOCRIT; Value: 42.0; Range: 36.0-47.0; Units: %; Status: F Test: MEAN CORPUSCULAR VOLUME; Value: 89.0; Range: 80.0-96.0; Units: fl; Status: F Test: MEAN CORPUSCULAR HEMOGLOBIN; Value: 31.1; Range: 27.0-33.0; Units: pg; Status: F Test: MEAN CORPUSCULAR HGB CONC; Value: 34.9; Range: 32.0-36.5; Units: g/dl; Status: F Test: RED CELL DISTRIBUTION WIDTH; Value: 12.7; Range: 11.5-14.5; Units: %; Status: F Test: PLATELET COUNT, AUTOMATED; Value: 273; Range: 150-450; Units: k/mm3; Status: F Test: NEUTROPHILS %; Value: 80.5; Range: 36.0-66.0; Abnormal: Above high normal; Units: %; Status: F Test: LYMPH %; Value: 15.1; Range: 24.0-44.0; Abnormal: Below low normal; Units: %; Status: F Test: MONO %; Value: 2.6; Range: 0.0-5.0; Units: %; Status: F Test: EOS %; Value: 0.7; Range: 0.0-3.0; Units: %; Status: F Test: BASO %; Value: 0.2; Range: 0.0-1.0; Units: %; Status: F Test: LARGE UNSTAINED CELL %; Value: 0.9; Range: 0.0-4.0; Units: %; Status: F Test: NEUTROPHILS #; Value: 13.3; Range: 1.8-7.7; Abnormal: Above high normal; Units: K/mm3; Status: F Test: LYMPH #; Value: 2.5; Range: 1.5-4.5; Units: K/mm3; Status: F Test: MONO #; Value: 0.4; Range: 0.0-0.8; Units: K/mm3; Status: F Test: EOS #; Value: 0.1; Range: 0.0-0.50; Units: K/mm3; Status: F Test: BASO #; Value: 0.0; Range: 0.0-0.2; Units: K/mm3; Status: F Test: LARGE UNSTAINED CELL #; Value: 0.2; Range: 0.0-0.4; Units: K/mm3; Status: F Lab Order: MED Profile; SPEC'M 03/05/16 17:38 Test: GLUCOSE, FASTING; Value: 105; Range: 70-105; Units: MG/DL; Status: F Test: BLOOD UREA NITROGEN; Value: 14; Range: 7-18; Units: MG/DL; Status: F Test: CREATININE FOR GFR; Value: 0.76; Range: 0.55-1.02; Units: MG/DL; Status: F Test: GLOMERULAR FILTRATION RATE; Value: > 60.0; Range: >58; Status: F Test: SODIUM LEVEL; Value: 141; Range: 136-145; Units: MEQ/L; Status: F Test: POTASSIUM SERUM; Value: 3.9; Range: 3.5-5.1; Units: MEQ/L; Status: F Test: CHLORIDE LEVEL; Value: 109; Range: 98-107; Abnormal: Above high normal; Units: MEQ/L; Status: F Test: CARBON DIOXIDE LEVEL; Value: 23; Range: 21-32; Units: MEQ/L; Status: F Test: ANION GAP; Value: 9; Range: 8-16; Units: MEQ/L; Status: F Test: CALCIUM LEVEL; Value: 8.8; Range: 8.5-10.1; Units: MG/DL; Status: F Test Note: ; Units are mL/min/1.73 m2 Chronic Kidney Disease Staging per NKF: Stage I & II GFR >=60 Normal to Mildly Decreased Stage III GFR 30-59 Moderately Decreased Stage IV GFR 15-29 Severely Decreased Stage V GFR <15 Very Little GFR Left ESRD GFR <15 on CROSS COUNTRY COACH Lab Order: ESR; SPEC'M 03/05/16 17:38 Test: ERYTHROCYTE SEDIMENTATION RATE; Value: 17; Range: 0-20; Units: mm/hr; Status: F Lab Order: CRP; SPEC'M 03/05/16 17:38 Test: C REACTIVE PROTEIN QUANTITATIV; Value: < 0.30; Range: 0.00-0.30; Units: MG/DL; Status: F Radiology Order: -MRI-Spine, Lumbar w/o foll by with con Test: -MRI-Spine, Lumbar w/o foll by with con REASON FOR EXAMINATION: RECENT L SPINE INJECTION, R/O ABSCESS; ; History: Rule out abscess.; Procedure: Multiple sequences were obtained in the sagittal and axial planes with T1 and T2 weighting; before and after the administration of intravenous contrast material.; Findings: The conus medullaris and cauda equina appear normal. There is no significant marrow signal; alteration. There is no evidence of fracture, spondylolisthesis, or spondylolysis.; Examination of the individual interspaces reveals the following:; L1-2: normal in configuration without herniation or spinal or foraminal stenosis.; L2-3: normal in configuration without herniation or spinal or foraminal stenosis.; L3-4: normal in configuration without herniation or spinal or foraminal stenosis.; L4-5: normal in configuration without herniation or spinal or foraminal stenosis.; L5-S1:normal in configuration without herniation or spinal or foraminal stenosis.; Impression:; 1. No abnormal enhancement.; 2. Normal MRI of the lumbar spine; Thank you for your kind referral of this patient.; ; Outcome: 22:30 Discharge ordered by Provider. ck7 22:47 Discharge Assessment: patient administered narcotics - yes. Pt provided with safe ms2 discharge. The following High Risk Discharge criteria are identified: None. Discharged to home ambulatory, with significant other. Condition: stable. Discharge instructions given to patient, Instructed on discharge instructions, follow up and referral plans. medication usage, no driving heavy equipment, no drinking with medication, Demonstrated understanding of instructions, medications, Pt was receptive of discharge instructions/ teaching. Prescriptions given X [address] Study completed. Property sent home with patient. 22:47 Patient left the ED. ms2 Signatures: Dispatcher [employer] Michele Donis,RN RN ms2 Corky Hdz RN RN mlb1 JonathonCharly, SOURCING ENGINEER SOURCING ENGINEER dd6 Ana Cristina Enriquez, Stephon, RPA-C RPA-Cck7 Tye SheltonRN Kathie Barksdale RN RN ms18 aGbriela Hutchinson, SOURCING ENGINEER SOURCING ENGINEER rs6 Sadie BakerRN RN af2 Alma Packer, Reg Reg ks16 [facility] Kathie Tijerina RN ms18 Corrections: (The following items were deleted from the chart) 22:11 16:28 Inserted saline lock: 20 gauge in right antecubital area The patient tolerated ms2 the procedure well. ms2 Chart Complete MTDD
--- NOTE | 2016-03-07 23:48 | EDDOCDS ---
Physician Documentation [facility] Name: Anjali Roach Age: 40 yrs Sex: Female : 1975 Arrival Date: 03/05/2016 Time: 14:45 Bed I2 / M2 Private MD: Tash Pcp Disposition: 03/05/16 22:30 Discharged to Home/Self Care. Impression: Low back pain - S/P LUMBAR INJECTION. - Condition is Stable. - Discharge Instructions: Back Pain, Adult. - Prescriptions for Robaxin 500 mg Oral Tablet - take 2 tablet by ORAL route every 6 hours As needed; 40 tablet. [place] 5- 325 mg Oral Tablet - take 1 tablet by ORAL route every 6 hours As needed MDD: 4 tabs; 6 tablet. - Medication Reconciliation, Local Pharmacy Hours form. - Follow up: Private Physician; When: 1 - 2 days; Reason: Recheck today's complaints, Continuance of care. - Problem is new. - Symptoms have improved. - Notes: USE MEDICATION INSTRUTCED, FOLLOW UP WITH YOUR DOCTOR ON MONDAY Historical: - Allergies: Flexeril (Hives); Toradol (Hives, Swelling); - Home Meds: 1. ibuprofen 800 mg Oral tab every 8 hours as needed - PMHx: Asthma; bursitis left hip; Chronic Back and Hip Pain; Migraines; Rheumatoid Arthritis; - PSHx: Tubal ligation; oral surgery; - Social history: Smoking status: Patient uses tobacco products, heavy tobacco smoker. No barriers to communication noted, The patient speaks fluent Algerian, Speaks appropriately for age. - Family history: Not pertinent. - : The pt / caregiver states he / she is not on anticoagulants. Home medication list is obtained from the patient. - Exposure Risk Screening:: None identified. 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 2 in. (157.48 cm) (R); 22:12 BP 124 / 82; Pulse 80; Resp 20 S; Pulse Ox 96% on R/A; Pain 9/10; ms2 14:46 Body Mass Index 43.90 (108.86 kg, 157.48 cm) dd6 MDM: 17:26 HYDROcodone-acetaminophen 5 mg-325 mg 1 tabs PO once ordered. ck7 17:26 Methocarbamol 1 grams PO once ordered. ck7 17:27 CBC with Diff Ordered. EDMS 17:27 MED Profile Ordered. EDMS 17:27 ESR Ordered. EDMS 17:27 CRP Ordered. EDMS 17:53 Financial registration complete. ks16 17:53 [facility] Payment Agreement was scanned into [employer] and attached to record. ks16 18:07 CBC with Diff Reviewed. ck7 18:07 MED Profile Reviewed. ck7 18:07 CRP Reviewed. ck7 18:22 CBC with Diff Reviewed. ck7 18:22 ESR Reviewed. ck7 18:30 MRI Screening Tool - Place on chart, inform RN ordered. ck7 18:31 -MRI-Spine, Lumbar w/o foll by with con Ordered. EDMS 18:40 MRI Screening Tool - Place on chart, inform RN complete. dls 19:23 IV Saline Lock ordered. ck7 22:11 HYDROcodone-acetaminophen 5 mg-325 mg 1 tabs PO once ordered. ck7 22:29 HYDROcodone-acetaminophen 4 pack- 5 mg-325 mg 1 packets PO Per package directions; ck7 Dispense with patient. 1 po q4h prn for pain ordered. 22:45 -MRI-Spine, Lumbar w/o foll by with con Reviewed. ck7 03/06 08:07 T-Sheet-- Draft Copy was scanned into [employer]Brand and attached to record. [facility] Administered Medications: 03/05 17:31 Drug: HYDROcodone-acetaminophen 1 tabs [hydrocodone 5 mg-acetaminophen 325 mg tablet (1 ms18 tabs)] Route: PO; 17:31 Drug: Methocarbamol 1 grams [methocarbamol 500 mg tablet (2 tabs)] Route: PO; ms18 22:22 Drug: HYDROcodone-acetaminophen 1 tabs [hydrocodone 5 mg-acetaminophen 325 mg tablet (1 ms2 tabs)] Route: PO; 22:36 Drug: HYDROcodone-acetaminophen 4 pack- 1 packets [hydrocodone 5 mg-acetaminophen 325 ms2 mg tablet (1 tabs)] {Co-Signature: ms18 (Kathie Tijerina RN).} Route: PO; Signatures: Dispatcher [employer] Loki Donisele,RN RN ms2 Gilma Arce RN RN dls Stephon Arredondo, RPA-C RPA-Cck7 Tye SheltonRN RN Alma Cota, Reg Reg ks16 Hossein, Kathie Radford RN ms18 Kathie Tijerina RN ms18 The chart was reviewed and I authenticate all verbal orders and agree with the evaluation and treatment provided.Attachments: 17:53 [facility] Payment Agreement ks16 03/06 08:07 T-Sheet-- Draft Copy [facility] Chart Complete MTDD
== END 2016-03-05 22:47 | disposition home or self-care (01) ==
LOC: M ED 14:45
DX: M54.5 Low back pain (principal); G89.29 Other chronic pain; J45.909 Unspecified asthma, uncomplicated; M06.9 Rheumatoid arthritis, unspecified; G43.909 Migraine, unspecified, not intractable, without status migrainosus; Z88.6 Allergy status to analgesic agent; Z88.8 Allergy status to other drugs, medicaments and biological substances; F17.210 Nicotine dependence, cigarettes, uncomplicated
CPT/HCPCS: 72158; 80048; 85025; 85652; 86140; 99284; A9576

== ENCOUNTER → 2016-04-28 | Outpatient (CLI) | payer OTHER ==
[~2016-04-28] MED LIST changes: +BUPIVACAINE HCL 0.25% 10 ML VIAL As Ordered ONE; +BUPIVACAINE HCL 0.25% 30 ML VIAL As Ordered ONE; +TRAM50TA2 PO; +TRIAMCINOLONE ACETONIDE SUSP 40 MG/ML VIAL (J3301) As Ordered ONE; +diazePAM 5 MG TAB As Ordered ONE; +oxyCODONE 5MG TAB As Ordered ONE
== END ==
LOC: M PAIN 14:20
PROVIDERS: ATTEND Anesthesiology
DX: M54.16 Radiculopathy, lumbar region (principal); Z53.29 Procedure and treatment not carried out because of patient's decision for other reasons

== ENCOUNTER 2016-05-08 12:51 | Emergency (ER) | payer OTHER ==
[~2016-05-08] VITALS: Ht 157.5 cm; Wt 108.9 kg
[2016-05-08 12:51] VITALS: BP 122/83
[~2016-05-08 12:51] MED LIST changes: -BUPIVACAINE HCL 0.25% 10 ML VIAL As Ordered ONE; -BUPIVACAINE HCL 0.25% 30 ML VIAL As Ordered ONE; -TRAM50TA2 PO; -TRIAMCINOLONE ACETONIDE SUSP 40 MG/ML VIAL (J3301) As Ordered ONE; -diazePAM 5 MG TAB As Ordered ONE; -oxyCODONE 5MG TAB As Ordered ONE
[2016-05-08] MEDS ORDERED: TRAM50TA2 PO (13:03)
[2016-05-08] MEDS ORDERED: NORCO, ANEXSIA 5/325MG TABLET (HYDROcodone/ACETAMINOPHEN) PO ONE (13:15)
[2016-05-09] MEDS ORDERED: TRAM50TA2 PO (20:18)
== END 2016-05-08 13:20 | disposition home or self-care (01) ==
LOC: M ED 13:13
DX: S39.012A Strain of muscle, fascia and tendon of lower back, initial encounter (principal); X50.1XXA Overexertion from prolonged static or awkward postures, initial encounter; Y92.89 Other specified places as the place of occurrence of the external cause; Y93.01 Activity, walking, marching and hiking; Y99.9 Unspecified external cause status

== ENCOUNTER 2016-05-09 18:20 | Emergency (ER) | payer OTHER ==
[~2016-05-09] VITALS: Ht 157.5 cm; Wt 108.9 kg
[~2016-05-09 18:20] MED LIST changes: +TRAM50TA2 PO
[2016-05-09] MEDS ORDERED: TRAM50TA2 PO (20:18)
[2016-05-09 20:29] VITALS: BP 138/70
[2016-05-09] MEDS ORDERED: traMADol 50 MG TAB PO ONE (20:30)
== END 2016-05-09 20:37 | disposition home or self-care (01) ==
LOC: M ED 19:23
DX: Z76.0 Encounter for issue of repeat prescription (principal); M54.9 Dorsalgia, unspecified; Z79.899 Other long term (current) drug therapy; Z88.0 Allergy status to penicillin; Z88.4 Allergy status to anesthetic agent; R51 Headache; M05.40 Rheumatoid myopathy with rheumatoid arthritis of unspecified site

== ENCOUNTER 2016-05-28 11:54 | Emergency (ER) | payer OTHER ==
[~2016-05-28] VITALS: Ht 157.5 cm; Wt 108.9 kg
[2016-05-28] MEDS ORDERED: METH-107 PO (12:21)
[2016-05-28] MEDS ORDERED: traMADol 50 MG TAB PO ONE (14:30)
[2016-05-28 15:15] VITALS: BP 129/83
== END 2016-05-28 15:17 | disposition home or self-care (01) ==
LOC: M ED 12:56
DX: G89.29 Other chronic pain (principal); M54.5 Low back pain; J45.909 Unspecified asthma, uncomplicated; Z88.8 Allergy status to other drugs, medicaments and biological substances; F17.210 Nicotine dependence, cigarettes, uncomplicated

== ENCOUNTER 2016-05-29 15:29 | Emergency (ER) | payer OTHER ==
[~2016-05-29] VITALS: Ht 157.5 cm; Wt 108.9 kg
[~2016-05-29 15:29] MED LIST changes: +METH-107 PO
[2016-05-29] MEDS ORDERED: traMADol 50 MG TAB (BULK 4 TAB ED) PO ONE (17:30)
[2016-05-29] MEDS ORDERED: traMADol 50 MG TAB PO ONE (17:30)
[2016-05-29 17:36] VITALS: BP 138/77
== END 2016-05-29 17:45 | disposition home or self-care (01) ==
LOC: M ED 16:32
DX: Z76.0 Encounter for issue of repeat prescription (principal); G89.29 Other chronic pain; M54.5 Low back pain; J45.909 Unspecified asthma, uncomplicated; M06.9 Rheumatoid arthritis, unspecified; Z79.899 Other long term (current) drug therapy; Z88.8 Allergy status to other drugs, medicaments and biological substances; F17.210 Nicotine dependence, cigarettes, uncomplicated

== ENCOUNTER → 2016-06-02 | Outpatient (CLI) | payer OTHER ==
--- NOTE | 2016-06-15 23:44 | ECWPNPC ---
PATIENT NAME: MADY COON : 1975 GENDER: FEMALE VISIT DATE: 06/02/2016 DISCHARGE DATE: 06/02/16 1054 VISIT LOCKED DATE TIME: PHYSICIAN: NISSA LLANOS RESOURCE: NISSA LLANOS HISTORY OF PRESENT ILLNESS HISTORY OF PRESENT ILLNESS: HEREFORF/U AND EVALUATION OF CHRONIC LEFT LOW BACK PAIN.RATING PAIN VAS 8/10.DESCRIBES PAIN CONSTANT ACHING AND BURNING PAIN.WAS SCHEDULED FOR LESI IN MARCH BUT CANCELLED DUE TO ANXIETY.DISCUSSED MEDICATION AND TREATMENT OPTIONS. PAIN THE PATIENT DESCRIBES THE PAIN... FALL RISK SCREENING: SCREENING :NO FALLS IN THE PAST YEAR CURRENT MEDICATIONS TAKING IBUPROFEN 800 MG TABLET 1 TABLET ORALLY FOUR TIMES DAILY NEEDED, NOTES: 3 7AM TAKING TRAMADOL HCL 50 MG TABLET 1-2 ORALLY EVERY 6 HRS MDD4, NOTES: 3 7AM TAKING METHOCARBAMOL 500 MG TABLET 1.5 TABLETS ORALLY BEDTIME MEDICATION LIST REVIEWED AND RECONCILED WITH THE PATIENT PAST MEDICAL HISTORY ASTHMA UTI KINDEY INFECTION PARTIAL BLADDER PROLAPSE BACK PAIN ARTHRITIS RIGHT HIP BURSITIS FAINTING/DIZZINESS ALLERGIES KETOROLAC TROMETHAMINE: FACIAL SWELLING/HIVES: ALLERGY FLEXERIL: MOUTH SWELLING/HIVES: ALLERGY LIDOCAINE: REDNESS, SWELLING AT INJECTION SITE: ALLERGY SOCIAL HISTORY GENERAL: PAIN CLINIC PFS, CLERGY, PUBLIC HEALTH REFERRALS CLERGY REFERRAL NEEDED?NO WAS THE PROVIDER NOTIFIED OF ANY PERTINENT INFO?NO PFS REFERRAL NEEDED?NO PUBLIC HEALTH REFERRAL NEEDED?NO PATIENT: ____. REVIEW OF SYSTEMS CONSTITUTIONAL: ANY CHANGE IN YOUR MEDICAL CONDITION? NO . CHILLS NO . FEVER NO . INFECTION: DO YOU HAVE NEW INFECTIONS? YES PT STATES SHE HAS BEEN BATTLING RESPIRATORY INFECTION /NO ANTIBIOTICS . DO YOU HAVE HISTORY OF MRSA? NO . MUSCULOSKELETAL: ANY NEW PATTERNS OF PAIN OR NUMBNESS? NO . GASTROENTEROLOGY: ANY NEW CHANGE IN BOWEL CONTROL? NO . GENITOURINARY: ANY NEW CHANGE IN BLADDER CONTROL? NO . IS THERE A CHANCE YOU COULD BE ? NO . HEMATOLOGY/LYMPH: DO YOU TAKE ANY BLOOD THINNERS? (FOR EXAMPLE- COUMADIN, PLAVIX, AGGRENOX, PLATEL, PRADAXA, OR XARELTO) NO . WHEN WAS YOUR LAST DOSE? DATE: TIME: . NEUROLOGY: HAVE YOU FALLEN IN THE PAST 6 MONTHS? YES ABOUT A WEEK AGO WENT TO OUR ED/ NO SCRAYS TAKEN . ANY NEW EXTREMITY NUMBNESS OR WEAKNESS? NO . CARDIOLOGY: DO YOU HAVE A PACEMAKER OR DEFIBRILLATOR? NO . RESPIRATORY: HAVE YOU BEEN SICK IN THE PAST WEEK? NO . FEVER NO . FLU LIKE SYMPTOMS? NO . COUGH NO . INTEGUMENTARY: DO YOU HAVE ANY RASHES OR OPEN SORES? NO . ALLERGIC/IMMUNO: ARE YOU ALLERGIC TO SHELLFISH OR IV DYE? NO . ANY NEW ALLERGIES? NO . PSYCHIATRIC: DO YOU HAVE THOUGHTS OF HURTING YOURSELF OR SOMEONE ELSE? NO . ARE YOU ABUSED, NEGLECTED, OR IN AN UNSAFE ENVIRONMENT? NO . ENDOCRINOLOGY: ARE YOU DIABETIC? NO . OTHER: DO YOU NEED ANY PRESCRIPTIONS? NO . IF YES, PLEASE LIST: ____ . ANY NEW PROBLEMS WITH YOUR MEDICATIONS? NO . WHEN DID YOU LAST EAT? ____ . WHEN DID YOU LAST DRINK? ____ . WHAT DID YOU LAST DRINK? ____ . NAME OF PERSON DRIVING YOU HOME? ____ . DO YOU HAVE ANY OTHER QUESTIONS OR CONCERNS NO . REVIEWED BY: PROVIDER: NISSA PRINCE . VITAL SIGNS WT 253.2 LBS, HT 62 IN, BMI 46.31 INDEX, BP 126/82 MM HG, HR 91 /MIN, RR 18 /MIN, TEMP 97.4 F, OXYGEN SAT % 97%, SAFE IN ENV? (Y/N) YES, NA INITIALS AW 1019, REVIEWED BY: KG. EXAMINATION GENERAL EXAMINATION: LUNGS:LUNG SOUNDS ARE CLEAR. HEART:HEART RATE REGULAR. MUSCULOSKELETAL:*, MUSCLE STRENGTH TESTING 5/5 BILATERAL LOWER EXTREMITIES. PALPATION: POSITIVE FOR PAIN OVER L/S SPINE. POSITIVE FOR PAIN OVER L/S PARASPINALS. ASSESSMENTS PROTRUSION OF LUMBAR INTERVERTEBRAL DISC - M51.26 (PRIMARY) ARTHROPATHY - M12.9 TREATMENT PROTRUSION OF LUMBAR INTERVERTEBRAL DISC INCREASE TRAMADOL HCL TABLET, 50 MG, 1-2, ORALLY, EVERY 6 HRS MDD4, 30 DAY(S), 45, REFILLS 0, NOTES: 04/28 7AM CONTINUE METHOCARBAMOL TABLET, 500 MG, 1.5 TABLETS, ORALLY, BEDTIME, 30 DAY(S), 45, REFILLS 2 START CYMBALTA CAPSULE DELAYED RELEASE PARTICLES, 30 MG, 1 CAPSULE, ORALLY, ONCE A DAY, 30 DAY(S), 30 CAPSULE, REFILLS 2 PROCEDURE CODES FA211 ESTABILISHED PATIENT [facility] CHARGE DISPOSITION & COMMUNICATION FOLLOW UP 4 WEEKS ELECTRONICALLY SIGNED BY NIKI SOLANO ON 06/15/2016 AT 03:22 PM EDT DISCLAIMER : THIS IS A VISIT SUMMARY EXTRACTED FROM THE [facility] CHART. IT IS NOT A COPY OF THE [facility] PROGRESS NOTE. MIKAYLA
== END ==
LOC: M PAIN 09:20
PROVIDERS: ATTEND Nurse Practitioner Family
DX: G89.29 Other chronic pain (principal); M51.26 Other intervertebral disc displacement, lumbar region; M12.9 Arthropathy, unspecified; J45.909 Unspecified asthma, uncomplicated; M70.71 Other bursitis of hip, right hip; Z79.1 Long term (current) use of non-steroidal anti-inflammatories (NSAID); Z79.891 Long term (current) use of opiate analgesic; Z79.899 Other long term (current) drug therapy; Z88.4 Allergy status to anesthetic agent; Z88.8 Allergy status to other drugs, medicaments and biological substances

== ENCOUNTER → 2016-07-05 | Outpatient (CLI) | payer OTHER ==
[~2016-07-05] MED LIST changes: +ULTR50TA PO
--- NOTE | 2016-07-26 00:51 | ECWPNPC ---
PATIENT NAME: MADY COON : 1975 GENDER: FEMALE VISIT DATE: 07/05/2016 DISCHARGE DATE: 07/05/16 1138 VISIT LOCKED DATE TIME: PHYSICIAN: NISSA LLANOS RESOURCE: NISSA LLANOS REASON FOR APPOINTMENT 1. BACK HISTORY OF PRESENT ILLNESS HISTORY OF PRESENT ILLNESS: HERE FOR F/U AND EVALUATION OF CHRONIC LEFT LOW BACK PAIN.RATING PAIN VAS 8/10.DESCRIBES PAIN CONSTANT ACHING AND BURNING PAIN.WAS SCHEDULED FOR LESI IN MARCH BUT CANCELLED DUE TO ANXIETY.DISCUSSED MEDICATION AND TREATMENT OPTIONS.WAS TRIALED ON CYMBALTA AT LAST VISIT AND THIS CAUSED HIVES.HAS HAD HIVE/RASH REATION TO INJECTIONS.PAIN IS MAINLY IN LOW BACK AND DESCRIBED CONSTANT ,ACHING AND BURNING. PAIN THE PATIENT DESCRIBES THE PAIN... THE PATIENT DESCRIBES THE PAIN... FALL RISK SCREENING: SCREENING :NO FALLS IN THE PAST YEAR CURRENT MEDICATIONS TAKING IBUPROFEN 800 MG TABLET 1 TABLET ORALLY FOUR TIMES DAILY NEEDED, NOTES: 3 7AM TAKING METHOCARBAMOL 500 MG TABLET 1.5 TABLETS ORALLY BEDTIME TAKING TRAMADOL HCL 50 MG TABLET 1-2 ORALLY EVERY 6 HRS MDD4, NOTES: 39 7AM NOT-TAKING CYMBALTA 30 MG CAPSULE DELAYED RELEASE PARTICLES 1 CAPSULE ORALLY ONCE A DAY MEDICATION LIST REVIEWED AND RECONCILED WITH THE PATIENT PAST MEDICAL HISTORY ASTHMA UTI KINDEY INFECTION PARTIAL BLADDER PROLAPSE BACK PAIN ARTHRITIS RIGHT HIP BURSITIS FAINTING/DIZZINESS ALLERGIES KETOROLAC TROMETHAMINE: FACIAL SWELLING/HIVES: ALLERGY FLEXERIL: MOUTH SWELLING/HIVES: ALLERGY LIDOCAINE: REDNESS, SWELLING AT INJECTION SITE: ALLERGY CYMBALTA: HIVES: ALLERGY SURGICAL HISTORY TUBAL LIGATION ORAL SURGERY-ALL TEETH REMOVED 09/2015 HOSPITALIZATION/MAJOR DIAGNOSTIC PROCEDURE RELATED TO CHILDBIRTH AND SURGERY REVIEW OF SYSTEMS CONSTITUTIONAL: ANY CHANGE IN YOUR MEDICAL CONDITION? NO PT STATES SHE STARTED CYMBALTA AND BROKE OUT IN HIVES, STOPPED CYMBALTA FOR COUPLE DAYS, RETRIED IT AND HIVES AGAIN. PT NO LONGER TAKES CYMBALTA. PT STATES SHE STARTED INCREASED DOSE OF TRAMADOL. PT REPORTS TRAMADOL HAS HELPED TO BRING PAIN FROM 10/10 TO 5/10. . CHILLS NO . FEVER NO . INFECTION: DO YOU HAVE NEW INFECTIONS? NO . DO YOU HAVE HISTORY OF MRSA? NO . MUSCULOSKELETAL: ANY NEW PATTERNS OF PAIN OR NUMBNESS? NO . GASTROENTEROLOGY: ANY NEW CHANGE IN BOWEL CONTROL? NO . GENITOURINARY: ANY NEW CHANGE IN BLADDER CONTROL? NO . IS THERE A CHANCE YOU COULD BE ? NO . HEMATOLOGY/LYMPH: DO YOU TAKE ANY BLOOD THINNERS? (FOR EXAMPLE- COUMADIN, PLAVIX, AGGRENOX, PLATEL, PRADAXA, OR XARELTO) NO . WHEN WAS YOUR LAST DOSE? DATE: TIME: . NEUROLOGY: HAVE YOU FALLEN IN THE PAST 6 MONTHS? YES. PT STATES SHE FELL DOWN STAIRS FROM LOWER BACK PAIN AND LEFT LEG NUMBNESS. PT REPORTS FALLING DOWN 2-3 STEPS, PT STATES SHE CAUGHT HERSELF SO SHE DIDN'T HIT THE FLOOR.&NBSP;. ANY NEW EXTREMITY NUMBNESS OR WEAKNESS? &NBSP;&NBSP; NO&NBSP;. CARDIOLOGY: DO YOU HAVE A PACEMAKER OR DEFIBRILLATOR? NO . RESPIRATORY: HAVE YOU BEEN SICK IN THE PAST WEEK? NO . FEVER NO . FLU LIKE SYMPTOMS? NO . COUGH NO . INTEGUMENTARY: DO YOU HAVE ANY RASHES OR OPEN SORES? NO . ALLERGIC/IMMUNO: ARE YOU ALLERGIC TO SHELLFISH OR IV DYE? NO . ANY NEW ALLERGIES? NO . PSYCHIATRIC: DO YOU HAVE THOUGHTS OF HURTING YOURSELF OR SOMEONE ELSE? NO . ARE YOU ABUSED, NEGLECTED, OR IN AN UNSAFE ENVIRONMENT? NO . ENDOCRINOLOGY: ARE YOU DIABETIC? NO . OTHER: DO YOU NEED ANY PRESCRIPTIONS? NO . IF YES, PLEASE LIST: ____ . ANY NEW PROBLEMS WITH YOUR MEDICATIONS? NO . WHEN DID YOU LAST EAT? ____ . WHEN DID YOU LAST DRINK? ____ . WHAT DID YOU LAST DRINK? ____ . NAME OF PERSON DRIVING YOU HOME? ____ . DO YOU HAVE ANY OTHER QUESTIONS OR CONCERNS NO . REVIEWED BY: PROVIDER: NISSA PRINCE . VITAL SIGNS WT 249.2 LBS, HT 62 IN, BMI 45.57 INDEX, BP 133/81 MM HG, HR 98 /MIN, RR 16 /MIN, TEMP 97.3 F, OXYGEN SAT % 97%, SAFE IN ENV? (Y/N) Y, NA INITIALS TL 1043, REVIEWED BY: EM. EXAMINATION GENERAL EXAMINATION: LUNGS:LUNG SOUNDS ARE CLEAR. HEART:HEART RATE REGULAR. MUSCULOSKELETAL:*, MUSCLE STRENGTH TESTING 5/5 BILATERAL LOWER EXTREMITIES. PALPATION: POSITIVE FOR PAIN OVER L/S SPINE. POSITIVE FOR PAIN OVER L/S PARASPINALS. ASSESSMENTS PROTRUSION OF LUMBAR INTERVERTEBRAL DISC - M51.26 (PRIMARY) ARTHROPATHY - M12.9 MEDICATION MANAGEMENT - Z79.899 MYALGIA - M79.1 TREATMENT PROTRUSION OF LUMBAR INTERVERTEBRAL DISC CONTINUE TRAMADOL HCL TABLET, 50 MG, 1-2, ORALLY, EVERY 6 HRS MDD4, NOTES: 04/28 7AM CONTINUE METHOCARBAMOL TABLET, 500 MG, 1.5 TABLETS, ORALLY, BEDTIME CONTINUE IBUPROFEN TABLET, 800 MG, 1 TABLET, ORALLY, FOUR TIMES DAILY NEEDED, NOTES: 04/28 7AM NOTES: PT 2XWK X 6 WEEKS-MYOFASCIAL RELEASE. PROCEDURE CODES FA211 ESTABILISHED PATIENT [facility] CHARGE DISPOSITION & COMMUNICATION FOLLOW UP PT WILL CALL FOR F/U ELECTRONICALLY SIGNED BY NIKI SOLANO ON 07/25/2016 AT 07:10 PM EDT DISCLAIMER : THIS IS A VISIT SUMMARY EXTRACTED FROM THE [facility] CHART. IT IS NOT A COPY OF THE [facility] PROGRESS NOTE. MIKAYLA
== END ==
LOC: M PAIN 10:00
PROVIDERS: ATTEND Nurse Practitioner Family
DX: M51.26 Other intervertebral disc displacement, lumbar region (principal); M12.9 Arthropathy, unspecified; M79.1 Myalgia; G89.29 Other chronic pain; Z79.891 Long term (current) use of opiate analgesic; Z79.899 Other long term (current) drug therapy; Z88.8 Allergy status to other drugs, medicaments and biological substances

== ENCOUNTER 2016-07-19 11:13 | Emergency (ER) | payer OTHER ==
[~2016-07-19] VITALS: Ht 157.5 cm; Wt 108.9 kg
[~2016-07-19 11:13] MED LIST changes: -ULTR50TA PO
[2016-07-19] MEDS ORDERED: ULTR50TA PO (11:27)
[2016-07-19] MEDS ORDERED: traMADol 50 MG TAB PO ONE (12:45)
[2016-07-19 12:53] VITALS: BP 127/89
== END 2016-07-19 12:54 | disposition home or self-care (01) ==
LOC: M ED 12:16
DX: G89.29 Other chronic pain (principal); M54.5 Low back pain; M25.552 Pain in left hip; J45.909 Unspecified asthma, uncomplicated; G43.909 Migraine, unspecified, not intractable, without status migrainosus; Z88.4 Allergy status to anesthetic agent; Z88.8 Allergy status to other drugs, medicaments and biological substances; F17.210 Nicotine dependence, cigarettes, uncomplicated

== ENCOUNTER 2016-08-18 10:08 | Outpatient (RCR) | payer OTHER ==
[~2016-08-18 10:08] MED LIST changes: -METH-107 PO; +METH1TAB40 PO; +ULTR50TA8 PO
== END 2016-08-19 | disposition home or self-care (01) ==
LOC: M PT 10:08
PROVIDERS: ATTEND Nurse Practitioner Family
DX: Z51.89 Encounter for other specified aftercare (principal); M51.26 Other intervertebral disc displacement, lumbar region; M12.9 Arthropathy, unspecified; M79.1 Myalgia; Z79.899 Other long term (current) drug therapy

== ENCOUNTER 2016-09-13 16:57 | Emergency (ER) | payer OTHER ==
[~2016-09-13] VITALS: Ht 157.5 cm; Wt 112.4 kg
[2016-09-13 16:57] VITALS: BP 124/80
[2016-09-13] MEDS ORDERED: PRED20TA PO (17:22)
[2016-09-13] MEDS ORDERED: PERC5TAB12 PO (17:22)
[2016-09-13] MEDS ORDERED: PERCOCET 5MG/325MG TAB PO ONE (17:30)
== END 2016-09-13 17:38 | disposition home or self-care (01) ==
LOC: M ED 16:57
DX: M25.552 Pain in left hip (principal); Z88.1 Allergy status to other antibiotic agents; Z88.8 Allergy status to other drugs, medicaments and biological substances

== ENCOUNTER 2016-09-23 23:04 | Emergency (ER) | payer OTHER ==
[~2016-09-23] VITALS: Ht 157.5 cm; Wt 109.1 kg
[2016-09-23 23:04] VITALS: BP 127/85
[~2016-09-23 23:04] MED LIST changes: +PERC5TAB12 PO; +PRED20TA PO
[2016-09-24] MEDS ORDERED: ONDANSETRON 4MG/2ML VIAL (J2405) IV ONE (00:30)
[2016-09-24] MEDS ORDERED: MORPHINE 2 MG/ML 1ML SYRINGE IV ONE (00:30)
[2016-09-24] MEDS ORDERED: diphenhydrAMINE INJ 50MG/ML VIAL (J1200) IV ONE (00:30)
[2016-09-24] MEDS ORDERED: methylPREDNISolone INJ 125 MG/2 ML VIAL (J2930) IV ONE (00:30)
== END 2016-09-24 01:56 | disposition home or self-care (01) ==
LOC: M ED 23:04
DX: G43.909 Migraine, unspecified, not intractable, without status migrainosus (principal); J45.909 Unspecified asthma, uncomplicated; M06.9 Rheumatoid arthritis, unspecified; Z72.0 Tobacco use
CPT/HCPCS: 96374; 96375; 99283; J1200; J2405; J2930

== ENCOUNTER 2016-10-09 16:22 | Emergency (ER) | payer OTHER ==
[~2016-10-09] VITALS: Ht 157.5 cm; Wt 113.6 kg
[2016-10-09 16:22] VITALS: BP 153/90
[2016-10-09] MEDS ORDERED: PRED20TA PO (17:49)
[2016-10-09] MEDS ORDERED: NORCO, ANEXSIA 5/325MG TABLET (HYDROcodone/ACETAMINOPHEN) PO ONE (18:00)
== END 2016-10-09 17:56 | disposition home or self-care (01) ==
LOC: M ED 16:23
DX: M54.42 Lumbago with sciatica, left side (principal); M70.62 Trochanteric bursitis, left hip; J45.909 Unspecified asthma, uncomplicated; G43.909 Migraine, unspecified, not intractable, without status migrainosus; Z79.899 Other long term (current) drug therapy; Z79.52 Long term (current) use of systemic steroids; Z88.6 Allergy status to analgesic agent; Z88.8 Allergy status to other drugs, medicaments and biological substances; F17.210 Nicotine dependence, cigarettes, uncomplicated

== ENCOUNTER 2016-10-10 20:56 | Emergency (ER) | payer OTHER ==
[~2016-10-10] VITALS: Ht 157.5 cm; Wt 113.6 kg
[2016-10-10 20:56] VITALS: BP 136/83
[2016-10-10] MEDS ORDERED: PERCOCET 5MG/325MG TAB PO ONE (22:30)
== END 2016-10-10 22:46 | disposition home or self-care (01) ==
LOC: M ED 20:56
DX: G89.29 Other chronic pain (principal); M25.552 Pain in left hip; Z79.899 Other long term (current) drug therapy; Z79.52 Long term (current) use of systemic steroids; Z88.4 Allergy status to anesthetic agent; Z88.8 Allergy status to other drugs, medicaments and biological substances

== ENCOUNTER → 2016-11-14 | Outpatient (CLI) | payer OTHER ==
[~2016-11-14] MED LIST changes: +NEUR300C PO; +PRED10TA2 PO
--- NOTE | 2016-12-04 23:54 | ECWPNPC ---
PATIENT NAME: MADY COON : 1975 GENDER: FEMALE VISIT DATE: 11/14/2016 DISCHARGE DATE: 11/14/16 1425 VISIT LOCKED DATE TIME: PHYSICIAN: NISSA LLANOS RESOURCE: NISSA LLANOS REASON FOR APPOINTMENT 1. MEDS HISTORY OF PRESENT ILLNESS HISTORY OF PRESENT ILLNESS: HERE FOR F/U AND EVALUATION OF CHRONIC LEFT LOW BACK PAIN.RATING PAIN VAS 7/10.DESCRIBES PAIN CONSTANT ACHING AND BURNING PAIN.WAS SCHEDULED FOR LESI IN MARCH BUT CANCELLED DUE TO ANXIETY.DISCUSSED MEDICATION AND TREATMENT OPTIONS.WAS TRIALED ON CYMBALTA AT LAST VISIT AND THIS CAUSED HIVES.HAS HAD HIVE/RASH REATION TO INJECTIONS.PAIN IS MAINLY IN LOW BACK AND DESCRIBED CONSTANT ,ACHING AND BURNING. PAIN THE PATIENT DESCRIBES THE PAIN... THE PATIENT DESCRIBES THE PAIN... THE PATIENT DESCRIBES THE PAIN... FALL RISK SCREENING: SCREENING :NO FALLS IN THE PAST YEAR CURRENT MEDICATIONS TAKING METHOCARBAMOL 500 MG TABLET 1.5 TABLETS ORALLY BEDTIME TAKING IBUPROFEN 800 MG TABLET 1 TABLET ORALLY FOUR TIMES DAILY NEEDED TAKING TRAMADOL HCL 50 MG TABLET 1-2 ORALLY EVERY 6 HRS MDD4 NOT-TAKING CYMBALTA 30 MG CAPSULE DELAYED RELEASE PARTICLES 1 CAPSULE ORALLY ONCE A DAY PAST MEDICAL HISTORY ASTHMA UTI KINDEY INFECTION PARTIAL BLADDER PROLAPSE BACK PAIN ARTHRITIS RIGHT HIP BURSITIS FAINTING/DIZZINESS ALLERGIES KETOROLAC TROMETHAMINE: FACIAL SWELLING/HIVES: ALLERGY FLEXERIL: MOUTH SWELLING/HIVES: ALLERGY LIDOCAINE: REDNESS, SWELLING AT INJECTION SITE: ALLERGY CYMBALTA: HIVES: ALLERGY REVIEW OF SYSTEMS REVIEWED BY: PROVIDER: NISSA LLANOS [employer] . CONSTITUTIONAL: ANY CHANGE IN YOUR MEDICAL CONDITION? YES, RASK ON LEFT CHEEK . CHILLS NO . FEVER NO . INFECTION: DO YOU HAVE NEW INFECTIONS? NO . DO YOU HAVE HISTORY OF MRSA? NO . MUSCULOSKELETAL: ANY NEW PATTERNS OF PAIN OR NUMBNESS? YES, LEFT HIP DOWN THE LEG . GASTROENTEROLOGY: ANY NEW CHANGE IN BOWEL CONTROL? NO . GENITOURINARY: ANY NEW CHANGE IN BLADDER CONTROL? NO . IS THERE A CHANCE YOU COULD BE ? NO . HEMATOLOGY/LYMPH: DO YOU TAKE ANY BLOOD THINNERS? (FOR EXAMPLE- COUMADIN, PLAVIX, AGGRENOX, PLATEL, PRADAXA, OR XARELTO) NO . WHEN WAS YOUR LAST DOSE? DATE: TIME: . NEUROLOGY: HAVE YOU FALLEN IN THE PAST 6 MONTHS? YES, ABOUT 1 MONTH AGO, ON THE STEPS/ CAUGHT HERSELF BUT IT STILL JOLTED HER . ANY NEW EXTREMITY NUMBNESS OR WEAKNESS? NO . CARDIOLOGY: DO YOU HAVE A PACEMAKER OR DEFIBRILLATOR? NO . RESPIRATORY: HAVE YOU BEEN SICK IN THE PAST WEEK? NO . FEVER NO . FLU LIKE SYMPTOMS? NO . COUGH NO . INTEGUMENTARY: DO YOU HAVE ANY RASHES OR OPEN SORES? NO . ALLERGIC/IMMUNO: ARE YOU ALLERGIC TO SHELLFISH OR IV DYE? NO . ANY NEW ALLERGIES? NO . PSYCHIATRIC: DO YOU HAVE THOUGHTS OF HURTING YOURSELF OR SOMEONE ELSE? NO . ARE YOU ABUSED, NEGLECTED, OR IN AN UNSAFE ENVIRONMENT? NO . ENDOCRINOLOGY: ARE YOU DIABETIC? NO . OTHER: DO YOU NEED ANY PRESCRIPTIONS? YES . IF YES, PLEASE LIST: IBRUPROFEN . ANY NEW PROBLEMS WITH YOUR MEDICATIONS? NO . WHEN DID YOU LAST EAT? ____ . WHEN DID YOU LAST DRINK? ____ . WHAT DID YOU LAST DRINK? ____ . NAME OF PERSON DRIVING YOU HOME? ____ . DO YOU HAVE ANY OTHER QUESTIONS OR CONCERNS NO . VITAL SIGNS WT 252 LBS, HT 62 IN, BMI 46.09 INDEX, BP 113/83 MM HG, HR 103 /MIN, RR 18 /MIN, TEMP 97.6 F, OXYGEN SAT % 97%, NA INITIALS SC 13:51. EXAMINATION GENERAL EXAMINATION: LUNGS:LUNG SOUNDS ARE CLEAR . HEART:HEART RATE REGULAR . MUSCULOSKELETAL:*, MUSCLE STRENGTH TESTING 5/5 BILATERAL LOWER EXTREMITIES. PALPATION: POSITIVE FOR PAIN OVER L/S SPINE. POSITIVE FOR PAIN OVER L/S PARASPINALS . LINEAR RASH LEFT BUTTOCKS SUSPICOUS FOR SHINGLES.REPORTS RASH HAS COME AND GONE X 1 YEAR AND IS ITCHY,BURNING AND HYPERSENSITIVE TO LIGHT TOUCH. ASSESSMENTS HERPES ZOSTER WITHOUT COMPLICATION - B02.9 (PRIMARY) PROTRUSION OF LUMBAR INTERVERTEBRAL DISC - M51.26 TREATMENT HERPES ZOSTER WITHOUT COMPLICATION REFILL TRAMADOL HCL TABLET, 50 MG, 1, ORALLY, Q8H PRN MDD3, 30 DAY(S), 90, REFILLS 1 REFILL METHOCARBAMOL TABLET, 500 MG, 1.5 TABLETS, ORALLY, BEDTIME, 30 DAY(S), 45, REFILLS 1 REFILL IBUPROFEN TABLET, 800 MG, 1 TABLET, ORALLY, THREE TIMES DAILY NEEDED, 30 DAY(S), 90, REFILLS 1, NOTES: 04/28 7AM NOTES: HAVE BUTTOCK LINEAR ,PAINFUL RASH EVALUATED AT URGENT CARE. PROCEDURE CODES FA211 ESTABILISHED PATIENT [facility] CHARGE DISPOSITION & COMMUNICATION FOLLOW UP 4 WEEKS ELECTRONICALLY SIGNED BY NIKI SOLANO ON 12/04/2016 AT 08:58 PM EDT DISCLAIMER : THIS IS A VISIT SUMMARY EXTRACTED FROM THE [employer] CHART. IT IS NOT A COPY OF THE [employer] PROGRESS NOTE. MIKAYLA
== END ==
LOC: M PAIN 13:45
PROVIDERS: ATTEND Nurse Practitioner Family
DX: B02.9 Zoster without complications (principal); M51.26 Other intervertebral disc displacement, lumbar region; G89.29 Other chronic pain; Z79.891 Long term (current) use of opiate analgesic; Z79.899 Other long term (current) drug therapy; Z88.8 Allergy status to other drugs, medicaments and biological substances

== ENCOUNTER 2016-12-02 18:46 | Emergency (ER) | payer OTHER ==
[~2016-12-02] VITALS: Ht 157.5 cm; Wt 109.1 kg
[~2016-12-02 18:46] MED LIST changes: -NEUR300C PO; -PRED10TA2 PO
[2016-12-02] MEDS ORDERED: PRED20TA PO (21:24)
[2016-12-02] MEDS ORDERED: PERCOCET 5MG/325MG TAB PO ONE (21:30)
[2016-12-02] MEDS ORDERED: predniSONE 20 MG TAB PO ONE (21:30)
[2016-12-02 21:33] VITALS: BP 135/90
== END 2016-12-02 21:34 | disposition home or self-care (01) ==
LOC: M ED 18:46
DX: M25.552 Pain in left hip (principal); J45.909 Unspecified asthma, uncomplicated; G89.29 Other chronic pain; M54.9 Dorsalgia, unspecified; G43.909 Migraine, unspecified, not intractable, without status migrainosus; Z88.6 Allergy status to analgesic agent; Z88.8 Allergy status to other drugs, medicaments and biological substances

== ENCOUNTER 2016-12-09 15:24 | Emergency (ER) | payer OTHER ==
[~2016-12-09] VITALS: Ht 157.5 cm; Wt 109.1 kg
[2016-12-09 15:25] VITALS: BP 114/68
[2016-12-09] MEDS ORDERED: PRED10TA2 PO (17:22)
[2016-12-09] MEDS ORDERED: NEUR300C PO (17:22)
[2016-12-09] MEDS ORDERED: NORCO, ANEXSIA 5/325MG TABLET (HYDROcodone/ACETAMINOPHEN) PO ONE (17:30)
[2016-12-09] MEDS ORDERED: GABAPENTIN 300 MG CAP PO ONE (17:30)
[2016-12-09] MEDS ORDERED: predniSONE 20 MG TAB PO ONE (17:30)
== END 2016-12-09 17:32 | disposition home or self-care (01) ==
LOC: M ED 15:24
DX: G57.92 Unspecified mononeuropathy of left lower limb (principal); J45.909 Unspecified asthma, uncomplicated; G43.909 Migraine, unspecified, not intractable, without status migrainosus; M54.9 Dorsalgia, unspecified; Z88.6 Allergy status to analgesic agent; Z88.8 Allergy status to other drugs, medicaments and biological substances

== ENCOUNTER → 2016-12-12 | Outpatient (CLI) | payer OTHER ==
[~2016-12-12] MED LIST changes: +NEUR300C PO; +PRED10TA2 PO
--- NOTE | 2017-01-07 23:27 | ECWPNPC ---
PATIENT NAME: MADY COON : 1975 GENDER: FEMALE VISIT DATE: 12/12/2016 DISCHARGE DATE: 12/12/16 1148 VISIT LOCKED DATE TIME: PHYSICIAN: NISSA LLANOS RESOURCE: NISSA LLANOS REASON FOR APPOINTMENT 1. BACK HISTORY OF PRESENT ILLNESS HISTORY OF PRESENT ILLNESS: HERE FOR F/U AND EVALUATION OF CHRONIC LEFT LOW BACK PAIN.RATING PAIN VAS 7/10.DESCRIBES PAIN CONSTANT ACHING AND BURNING PAIN.RECENTLY TREATED FOR SHINGLES LEFT BUTTOCKS ONE MONTH AGO.HAD ER VISIT 3-4 DAYS AGO DUE TO INCREASE IN PAIN.RECENTLY HAD A SIDE EFFECT WITH GABAPENTIN OF HIVES AND RASH.DISCUSSED MEDICATION AND TREATMENT OPTIONS.WAS TRIALED ON CYMBALTA AT LAST VISIT AND THIS CAUSED HIVES.HAS HAD HIVE/RASH REATION TO INJECTIONS.PAIN IS MAINLY IN LOW BACK AND DESCRIBED CONSTANT ,ACHING AND BURNING. PAIN THE PATIENT DESCRIBES THE PAIN... THE PATIENT DESCRIBES THE PAIN... THE PATIENT DESCRIBES THE PAIN... THE PATIENT DESCRIBES THE PAIN... FALL RISK SCREENING: SCREENING :NO FALLS IN THE PAST YEAR CURRENT MEDICATIONS TAKING TRAMADOL HCL 50 MG TABLET 1 ORALLY Q8H PRN MDD3 TAKING METHOCARBAMOL 500 MG TABLET 1.5 TABLETS ORALLY BEDTIME TAKING IBUPROFEN 800 MG TABLET 1 TABLET ORALLY THREE TIMES DAILY NEEDED, NOTES: 04/28 7AM UNKNOWN CYMBALTA 30 MG CAPSULE DELAYED RELEASE PARTICLES 1 CAPSULE ORALLY ONCE A DAY PAST MEDICAL HISTORY ASTHMA UTI KINDEY INFECTION PARTIAL BLADDER PROLAPSE BACK PAIN ARTHRITIS RIGHT HIP BURSITIS FAINTING/DIZZINESS ALLERGIES KETOROLAC TROMETHAMINE: FACIAL SWELLING/HIVES: ALLERGY FLEXERIL: MOUTH SWELLING/HIVES: ALLERGY LIDOCAINE: REDNESS, SWELLING AT INJECTION SITE: ALLERGY CYMBALTA: HIVES: ALLERGY GABAPENTIN: SWELLING, ITCH, REDNEES: ALLERGY SOCIAL HISTORY GENERAL: TOBACCO USE ARE YOU A:CURRENT SMOKER ARE YOU INTERESTED IN QUITTING?NOT READY TO QUIT COUNSELED THE PATIENT ON SMOKING EFFECTS, EDUCATION [id number] HOW MANY CIGARETTES A DAY DO YOU SMOKE?11-20 PATIENT COUNSELED ON THE DANGERS OF TOBACCO USE AND URGED TO QUIT:12/12/2016 ALCOHOL SCREENING POINTS0 INTERPRETATIONNEGATIVE CAFFEINE CAFFEINE USE?YES HOW OFTEN AND HOW MUCH? SOD[place] ALL DAY LONG BUDDHISM [id number] NONE NO MORMONISM BELIEFS THAT WOULD IMPACT HEALTH CARE. LEARNING BARRIERS / SPECIAL NEEDS BARRIERS TO LEARNING?NO HEARING IMPAIRED?NO VISION IMPAIRED?NO COGNITIVELY IMPAIRED?NO READINESS TO LEARN?YES LEARNING PREFERENCES?NO LEARNING CAPABILITIES PRESENT?YES EMOTIONAL BARRIERS?NO PAIN CLINIC PFS, CLERGY, PUBLIC HEALTH REFERRALS CLERGY REFERRAL NEEDED?NO WAS THE PROVIDER NOTIFIED OF ANY PERTINENT INFO?NO PFS REFERRAL NEEDED?NO PUBLIC HEALTH REFERRAL NEEDED?NO PATIENT: ____. REVIEW OF SYSTEMS REVIEWED BY: PROVIDER: NISSA PRINCE . CONSTITUTIONAL: ANY CHANGE IN YOUR MEDICAL CONDITION? NO . CHILLS NO . FEVER NO . INFECTION: DO YOU HAVE NEW INFECTIONS? NO . DO YOU HAVE HISTORY OF MRSA? NO . MUSCULOSKELETAL: ANY NEW PATTERNS OF PAIN OR NUMBNESS? LEFT LEG SENT HER TO THE ER ON MONDAY AND SHE GOT GABAPENTIN (IS ALLERGIC TO THIS SEEN THAT DAY) . GASTROENTEROLOGY: ANY NEW CHANGE IN BOWEL CONTROL? NO . GENITOURINARY: ANY NEW CHANGE IN BLADDER CONTROL? NO . IS THERE A CHANCE YOU COULD BE ? NO . HEMATOLOGY/LYMPH: DO YOU TAKE ANY BLOOD THINNERS? (FOR EXAMPLE- COUMADIN, PLAVIX, AGGRENOX, PLATEL, PRADAXA, OR XARELTO) NO . WHEN WAS YOUR LAST DOSE? DATE: TIME: . NEUROLOGY: HAVE YOU FALLEN IN THE PAST 6 MONTHS? YES 2 MONTHS AGO . ANY NEW EXTREMITY NUMBNESS OR WEAKNESS? NO . CARDIOLOGY: DO YOU HAVE A PACEMAKER OR DEFIBRILLATOR? NO . RESPIRATORY: HAVE YOU BEEN SICK IN THE PAST WEEK? NO . FEVER NO . FLU LIKE SYMPTOMS? NO . COUGH NO . INTEGUMENTARY: DO YOU HAVE ANY RASHES OR OPEN SORES? NO . ALLERGIC/IMMUNO: ARE YOU ALLERGIC TO SHELLFISH OR IV DYE? NO . ANY NEW ALLERGIES? NO . PSYCHIATRIC: DO YOU HAVE THOUGHTS OF HURTING YOURSELF OR SOMEONE ELSE? NO . ARE YOU ABUSED, NEGLECTED, OR IN AN UNSAFE ENVIRONMENT? NO . ENDOCRINOLOGY: ARE YOU DIABETIC? NO . OTHER: DO YOU NEED ANY PRESCRIPTIONS? NO . IF YES, PLEASE LIST: ____ . ANY NEW PROBLEMS WITH YOUR MEDICATIONS? NO . WHEN DID YOU LAST EAT? ____ . WHEN DID YOU LAST DRINK? ____ . WHAT DID YOU LAST DRINK? ____ . NAME OF PERSON DRIVING YOU HOME? ____ . DO YOU HAVE ANY OTHER QUESTIONS OR CONCERNS NO . VITAL SIGNS WT 240 LBS, HT 62 IN, BMI 43.89 INDEX, BP 121/78 MM HG, HR 97 /MIN, RR 18 /MIN, TEMP 97.5 F, OXYGEN SAT % 98%, NA INITIALS AW 1059, REVIEWED BY: NL. EXAMINATION GENERAL EXAMINATION: LUNGS:LUNG SOUNDS ARE CLEAR . HEART:HEART RATE REGULAR . MUSCULOSKELETAL:*, MUSCLE STRENGTH TESTING 5/5 BILATERAL LOWER EXTREMITIES. PALPATION: POSITIVE FOR PAIN OVER L/S SPINE. POSITIVE FOR PAIN OVER L/S PARASPINALS . LINEAR RASH LEFT BUTTOCKS SUSPICOUS FOR SHINGLES HAS RESOLVED.REPORTS RASH HAS COME AND GONE X 1 YEAR AND IS ITCHY,BURNING AND HYPERSENSITIVE TO LIGHT TOUCH. ASSESSMENTS HERPES ZOSTER WITHOUT COMPLICATION - B02.9 (PRIMARY) PROTRUSION OF LUMBAR INTERVERTEBRAL DISC - M51.26 TREATMENT HERPES ZOSTER WITHOUT COMPLICATION REFILL TRAMADOL HCL TABLET, 50 MG, 1-2, ORALLY, Q8H PRN MDD6, 30 DAY(S), 120, REFILLS 1 CONTINUE METHOCARBAMOL TABLET, 500 MG, 1.5 TABLETS, ORALLY, BEDTIME CONTINUE IBUPROFEN TABLET, 800 MG, 1 TABLET, ORALLY, THREE TIMES DAILY NEEDED, NOTES: 04/28 7AM PROCEDURE CODES FA211 ESTABILISHED PATIENT [facility] CHARGE DISPOSITION & COMMUNICATION FOLLOW UP 2 MONTHS ELECTRONICALLY SIGNED BY NIKI SOLANO ON 01/07/2017 AT 06:37 PM EST DISCLAIMER : THIS IS A VISIT SUMMARY EXTRACTED FROM THE [employer] CHART. IT IS NOT A COPY OF THE [employer] PROGRESS NOTE. MTDD
== END ==
LOC: M PAIN 10:15
PROVIDERS: ATTEND Nurse Practitioner Family
DX: B02.9 Zoster without complications (principal); M51.26 Other intervertebral disc displacement, lumbar region; G89.29 Other chronic pain; F17.210 Nicotine dependence, cigarettes, uncomplicated; Z79.891 Long term (current) use of opiate analgesic; Z79.899 Other long term (current) drug therapy; Z88.8 Allergy status to other drugs, medicaments and biological substances; Z91.81 History of falling

== ENCOUNTER → 2017-03-10 | Outpatient (CLI) | payer OTHER | LOC: M PAIN 10:15 | DX: G89.29 Other chronic pain (principal); M51.26 Other intervertebral disc displacement, lumbar region; J45.909 Unspecified asthma, uncomplicated; M19.90 Unspecified osteoarthritis, unspecified site; F17.210 Nicotine dependence, cigarettes, uncomplicated; Z79.891 Long term (current) use of opiate analgesic; Z79.899 Other long term (current) drug therapy; Z88.8 Allergy status to other drugs, medicaments and biological substances | CPT/HCPCS: G0463 ==

== ENCOUNTER → 2017-09-05 | Outpatient (CLI) | payer OTHER | LOC: M PAIN 13:00 | DX: M51.26 Other intervertebral disc displacement, lumbar region (principal); G89.29 Other chronic pain; J45.909 Unspecified asthma, uncomplicated; M19.90 Unspecified osteoarthritis, unspecified site; F17.210 Nicotine dependence, cigarettes, uncomplicated; Z79.01 Long term (current) use of anticoagulants; Z79.899 Other long term (current) drug therapy; Z88.8 Allergy status to other drugs, medicaments and biological substances; Z86.69 Personal history of other diseases of the nervous system and sense organs | CPT/HCPCS: G0463 ==

== ENCOUNTER → 2017-12-29 | Outpatient (CLI) | payer OTHER | LOC: M PAIN 15:00 | DX: M51.26 Other intervertebral disc displacement, lumbar region (principal); G89.29 Other chronic pain; J45.909 Unspecified asthma, uncomplicated; F17.210 Nicotine dependence, cigarettes, uncomplicated; E66.01 Morbid (severe) obesity due to excess calories; Z68.42 Body mass index [BMI] 45.0-49.9, adult; Z79.891 Long term (current) use of opiate analgesic; Z79.899 Other long term (current) drug therapy; Z88.8 Allergy status to other drugs, medicaments and biological substances; Z86.69 Personal history of other diseases of the nervous system and sense organs | CPT/HCPCS: G0463 ==

== ENCOUNTER 2018-02-06 11:22 | Emergency (ER) | payer OTHER ==
[2018-02-06] MEDS: PERCOCET 5MG/325MG TAB PO (11:57)
[2018-02-06] MEDS: OXYCODONE/APAP 5MG/325MG(BULK FOR ED) 1 TABLET PO (12:45)
== END 2018-02-06 12:56 | disposition home or self-care (01) ==
LOC: M ED 11:22
DX: M54.42 Lumbago with sciatica, left side (principal); Z88.8 Allergy status to other drugs, medicaments and biological substances; Z88.1 Allergy status to other antibiotic agents
CPT/HCPCS: 72110

== ENCOUNTER → 2018-02-28 | Outpatient (CLI) | payer OTHER ==
--- NOTE | 2018-03-01 01:16 | ECWPNPC ---
PATIENT NAME: MADY COON : 1975 GENDER: FEMALE VISIT DATE: 02/28/2018 DISCHARGE DATE: 02/28/18 1045 VISIT LOCKED DATE TIME: PHYSICIAN: NISSA LLANOS RESOURCE: NISSA LLANOS REASON FOR APPOINTMENT 1. MEDS HISTORY OF PRESENT ILLNESS HISTORY OF PRESENT ILLNESS: HERE FOR F/U OF CHRONIC LOW BACK PAIN.RATING PAIN VAS 5/10.FINDS TRAMADOL AND ROBAXIN HELPFUL AT REDUCING PAIN AND KEEPING HER FUNCTIONAL .DENIES SIDE EFFECTS.USES THESE MEDICATIONS SPARINGLY FOR SEVERE PAIN EPISODES.REPORTING IMPROVED TOLERANCE TO ADL'S WITH CURRENT PAIN MEDICINE REGIMEN. PAIN THE PATIENT DESCRIBES THE PAIN... THE PATIENT DESCRIBES THE PAIN... THE PATIENT DESCRIBES THE PAIN... THE PATIENT DESCRIBES THE PAIN... THE PATIENT DESCRIBES THE PAIN... THE PATIENT DESCRIBES THE PAIN... FALL RISK SCREENING: SCREENING :NO FALLS IN THE PAST YEAR CURRENT MEDICATIONS TAKING METHOCARBAMOL 500 MG TABLET 1.5 TABLETS ORALLY BEDTIME, NOTES: TAKES NEEDED TAKING TRAMADOL HCL 50 MG TABLET 1-2 ORALLY Q8H PRN MDD6 TAKING IBUPROFEN 800 MG TABLET 1 TABLET ORALLY THREE TIMES DAILY NEEDED MEDICATION LIST REVIEWED AND RECONCILED WITH THE PATIENT PAST MEDICAL HISTORY ASTHMA UTI KINDEY INFECTION PARTIAL BLADDER PROLAPSE BACK PAIN ARTHRITIS RIGHT HIP BURSITIS FAINTING/DIZZINESS ALLERGIES KETOROLAC TROMETHAMINE: FACIAL SWELLING/HIVES: ALLERGY FLEXERIL: MOUTH SWELLING/HIVES: ALLERGY LIDOCAINE: REDNESS, SWELLING AT INJECTION SITE: ALLERGY CYMBALTA: HIVES: ALLERGY GABAPENTIN: SWELLING, ITCH, REDNEES: ALLERGY SURGICAL HISTORY TUBAL LIGATION ORAL SURGERY-ALL TEETH REMOVED 09/2015 FAMILY HISTORY FATHER: ALIVE, DIAGNOSED WITH HEART DISEASE MOTHER: ALIVE, DIAGNOSED WITH HYPERTENSION, SUBSTANCE ABUSE 4 SON(S) , 2 DAUGHTER(S) - HEALTHY. MOM-HIGH CHOLESTEROL, COPD, RECOVERY DRUG ADDICT, NEUROLOGICAL DISORDER. SOCIAL HISTORY GENERAL: TOBACCO USE ARE YOU A:CURRENT SMOKER ARE YOU INTERESTED IN QUITTING?NOT READY TO QUIT COUNSELED THE PATIENT ON SMOKING EFFECTS, EDUCATION [id number]/09/2019 HOW MANY CIGARETTES A DAY DO YOU SMOKE?6-10 PATIENT COUNSELED ON THE DANGERS OF TOBACCO USE AND URGED TO QUIT:02/28/2018 SMOKING CESSATION INFORMATION GIVEN 02/28/18 DECLINED ALCOHOL SCREENING DID YOU HAVE A DRINK CONTAINING ALCOHOL IN THE PAST YEAR?NO POINTS0 INTERPRETATIONNEGATIVE RECREATIONAL DRUG USE DRUG USE?YES CAFFEINE CAFFEINE USE?YES HOW OFTEN AND HOW MUCH? SODA ALL DAY LONG MANDAEISM [id number] NONE NO ORIENTAL ORTHODOX BELIEFS THAT WOULD IMPACT HEALTH CARE. LANGUAGE LANGUAGES SPOKEN:UKRAINIAN LEARNING BARRIERS / SPECIAL NEEDS BARRIERS TO LEARNING?NO HEARING IMPAIRED?NO VISION IMPAIRED?NO COGNITIVELY IMPAIRED?NO READINESS TO LEARN?YES LEARNING PREFERENCES?NO LEARNING CAPABILITIES PRESENT?YES EMOTIONAL BARRIERS?NO SPECIAL DEVICES?NO SOFTWARE PROGRAM MANAGER NEEDED?NO DOMESTIC VIOLENCE DO YOU FEEL SAFE IN YOUR ENVIRONMENT?YES MARITAL STATUS: . PAIN CLINIC PFS, CLERGY, PUBLIC HEALTH REFERRALS PFS REFERRAL NEEDED?NO CLERGY REFERRAL NEEDED?NO PUBLIC HEALTH REFERRAL NEEDED?NO WAS THE PROVIDER NOTIFIED OF ANY PERTINENT INFO? N/A HAS THE PATIENT BEEN EDUCATED REGARDING HIS/HER PLAN OF CARE?YES HAS THE PATIENT BEEN EDUCATED REGARDING PAIN, THE RISK FOR PAIN, THE IMPORTANCE OF EFFECTIVE PAIN MANAGEMENT, AND THE PAIN ASSESSMENT PROCESS?YES ADVANCE DIRECTIVE ADVANCE DIRECTIVE DISCUSSED WITH PATIENT:YES 02/28/18 PT DOESN'T HAVE ANY ADVANCED DIRECTIVES AND DECLINES INFORMATION ON HCP AT THIS TIME. AD 09/05/17 1331 REVIEWED WITH PT ADREVIEWED WITH PT 12/29/17 1510 BV02/28/18 0955 REVIEWED WITH PT. AD. HOSPITALIZATION/MAJOR DIAGNOSTIC PROCEDURE RELATED TO CHILDBIRTH AND SURGERY REVIEW OF SYSTEMS REVIEWED BY: PROVIDER: NISSA PRINCE . CONSTITUTIONAL: ANY CHANGE IN YOUR MEDICAL CONDITION? NO . CHILLS NO . FEVER NO . INFECTION: DO YOU HAVE NEW INFECTIONS? NO . DO YOU HAVE HISTORY OF MRSA? NO . MUSCULOSKELETAL: ANY NEW PATTERNS OF PAIN OR NUMBNESS? YES, NUMBNESS LEFT HIP ON AND OFF FOR THE PAST 2-3 WEEKS ANTONIO. AFTER SITTING OR LYING DOWN, LAST FOR APPROX 20 MINS. STATES THE AREA WAS [place] FOR APPROX. 3 DAYS . GASTROENTEROLOGY: ANY NEW CHANGE IN BOWEL CONTROL? NO . GENITOURINARY: ANY NEW CHANGE IN BLADDER CONTROL? NO . IS THERE A CHANCE YOU COULD BE ? NO . HEMATOLOGY/LYMPH: DO YOU TAKE ANY BLOOD THINNERS? (FOR EXAMPLE- COUMADIN, PLAVIX, AGGRENOX, PLATEL, PRADAXA, OR XARELTO) NO . WHEN WAS YOUR LAST DOSE? DATE: TIME: . NEUROLOGY: HAVE YOU FALLEN IN THE PAST 6 MONTHS? NO . ANY NEW EXTREMITY NUMBNESS OR WEAKNESS? NO . CARDIOLOGY: DO YOU HAVE A PACEMAKER OR DEFIBRILLATOR? NO . RESPIRATORY: HAVE YOU BEEN SICK IN THE PAST WEEK? NO . FEVER NO . FLU LIKE SYMPTOMS? NO . COUGH NO . INTEGUMENTARY: DO YOU HAVE ANY RASHES OR OPEN SORES? NO . ALLERGIC/IMMUNO: ARE YOU ALLERGIC TO SHELLFISH OR IV DYE? NO . ANY NEW ALLERGIES? NO . PSYCHIATRIC: DO YOU HAVE THOUGHTS OF HURTING YOURSELF OR SOMEONE ELSE? NO . ARE YOU ABUSED, NEGLECTED, OR IN AN UNSAFE ENVIRONMENT? NO . ENDOCRINOLOGY: ARE YOU DIABETIC? NO . OTHER: DO YOU NEED ANY PRESCRIPTIONS? YES . IF YES, PLEASE LIST: ULTRAM . ANY NEW PROBLEMS WITH YOUR MEDICATIONS? NO . WHEN DID YOU LAST EAT? ____ . WHEN DID YOU LAST DRINK? ____ . WHAT DID YOU LAST DRINK? ____ . NAME OF PERSON DRIVING YOU HOME? ____ . DO YOU HAVE ANY OTHER QUESTIONS OR CONCERNS NO . VITAL SIGNS WT 248.2 LBS, HT 62 IN, BMI 45.39 INDEX, BP 124/85 MM HG, HR 102 /MIN, RR 16 /MIN, TEMP 96.6 F, OXYGEN SAT % 97%, SAFE IN ENV? (Y/N) Y, NA INITIALS PR 09:57, REVIEWED BY: DI. EXAMINATION GENERAL EXAMINATION: LUNGS:LUNG SOUNDS ARE CLEAR . HEART:HEART RATE REGULAR . MUSCULOSKELETAL:*, MUSCLE STRENGTH TESTING 5/5 BILATERAL LOWER EXTREMITIES. PALPATION: POSITIVE FOR PAIN OVER L/S SPINE. POSITIVE FOR PAIN OVER L/S PARASPINALS . 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 , RISKS AND BENEFITS OF NARCOTIC/OPIOD MEDICATIONS WERE REVIEWED WITH PATIENT - THIS INCLUDES BUT IS NOT LIMITED TO RISK OF DEPENDANCE/DEVELOPMENT OF ADDICTION, MOOD DISTURBANCE AND DEPRESSION, OSTEOPOROSIS, HORMONAL AND LABIDAL CHANGES, RESPIRATORY DEPRESSION AND . PATIENT IS ADVISED NOT TO DRIVE OR DRINK ALCOHOL WHILE ON THESE MEDICATIONS, [facility] NARCOTIC AGREEMENT WAS REVIEWED AND SIGNED TODAY BY THE PATIENT. SEE ATTACHED DOCUMENT FOR FULL DETAILS; SPECIFIC ISSUES WERE REVIEWED: 1) KEEP PAIN MEDS IN THEIR ORIGINAL BOTTLES AND ANY WEEKLY PLANNERS ARE TO BE BROUGHT TO THE PAIN CENTER AT EVERY VISIT. 2) THE PATIENT IS NOT TO INCREASE DOSING OR TIMING OF THEIR PAIN MEDICATION WITHOUT SPECIFIC DIRECTION OF THEIR PAIN CENTERPROVIDER (NOT ER OR OTHER PROVIDERS). 3) ALL PAIN MEDS ARE TO BE KEPT SECURED, IN A LOCKED BOX. 4) NO PAIN MEDS ARE TO BE SHARED WITH ANY OTHER PERSON FOR ANY REASON. 5) NO PAIN MEDS MAY BE TAKEN FROM ANY FRIENDS OR RELATIVES FOR ANY REASON 6) NO MEDS OR SUBSTANCES WHICH ARE NOT LEGAL ARE TO BE USED- NO MARIJUANA, NO COCAINE, AMPHETAMINES, HEROIN, OR OTHERS ARE EVER TO BE USED. 7)URINE TESTING IS DONE TO ACCOUNT FOR MEDS AND SUBSTANCES BEING TAKEN AND WILL BE DONE RANDOMLY. PROCEDURE CODES FA211 ESTABILISHED PATIENT [facility] CHARGE DISPOSITION & COMMUNICATION FOLLOW UP 2 MONTHS ELECTRONICALLY SIGNED BY NIKI CABELLO ON 02/28/2018 AT 10:55 AM EST DISCLAIMER : THIS IS A VISIT SUMMARY EXTRACTED FROM THE [employer] CHART. IT IS NOT A COPY OF THE [employer] PROGRESS NOTE. MIKAYLA
== END ==
LOC: M PAIN 09:45
PROVIDERS: ATTEND Nurse Practitioner Family
DX: M51.26 Other intervertebral disc displacement, lumbar region (principal); G89.29 Other chronic pain; J45.909 Unspecified asthma, uncomplicated; M19.90 Unspecified osteoarthritis, unspecified site; M70.61 Trochanteric bursitis, right hip; F17.210 Nicotine dependence, cigarettes, uncomplicated; E66.01 Morbid (severe) obesity due to excess calories; Z68.45 Body mass index [BMI] 70 or greater, adult; Z79.891 Long term (current) use of opiate analgesic; Z79.899 Other long term (current) drug therapy; Z88.8 Allergy status to other drugs, medicaments and biological substances; Z86.69 Personal history of other diseases of the nervous system and sense organs

== ENCOUNTER → 2018-05-01 | Outpatient (CLI) | payer OTHER ==
--- NOTE | 2018-05-16 01:19 | ECWPNPC ---
PATIENT NAME: MADY COON : 1975 GENDER: FEMALE VISIT DATE: 05/01/2018 DISCHARGE DATE: 05/01/18 1048 VISIT LOCKED DATE TIME: PHYSICIAN: NISSA LLANOS RESOURCE: NISSA LLANOS REASON FOR APPOINTMENT 1. MEDS HISTORY OF PRESENT ILLNESS HISTORY OF PRESENT ILLNESS: HERE FOR F/U OF CHRONIC LOW BACK PAIN.RATING PAIN VAS 6/10.FINDS TRAMADOL AND ROBAXIN HELPFUL AT REDUCING PAIN AND KEEPING HER FUNCTIONAL .DENIES SIDE EFFECTS.USES THESE MEDICATIONS SPARINGLY FOR SEVERE PAIN EPISODES.REPORTING IMPROVED TOLERANCE TO ADL'S WITH CURRENT PAIN MEDICINE REGIMEN. PAIN THE PATIENT DESCRIBES THE PAIN... THE PATIENT DESCRIBES THE PAIN... THE PATIENT DESCRIBES THE PAIN... THE PATIENT DESCRIBES THE PAIN... THE PATIENT DESCRIBES THE PAIN... THE PATIENT DESCRIBES THE PAIN... THE PATIENT DESCRIBES THE PAIN... FALL RISK SCREENING: SCREENING : NO FALLS IN THE PAST YEAR. CURRENT MEDICATIONS TAKING METHOCARBAMOL 500 MG TABLET 1 CAP ORALLY BEDTIME PRN, NOTES: TAKES NEEDED TAKING TRAMADOL HCL 50 MG TABLET 1-2 ORALLY Q8H PRN MDD6 TAKING IBUPROFEN 800 MG TABLET 1 TABLET ORALLY THREE TIMES DAILY NEEDED MEDICATION LIST REVIEWED AND RECONCILED WITH THE PATIENT PAST MEDICAL HISTORY ASTHMA UTI KINDEY INFECTION PARTIAL BLADDER PROLAPSE BACK PAIN ARTHRITIS RIGHT HIP BURSITIS FAINTING/DIZZINESS ALLERGIES KETOROLAC TROMETHAMINE: FACIAL SWELLING/HIVES - ALLERGY FLEXERIL: MOUTH SWELLING/HIVES - ALLERGY LIDOCAINE: REDNESS, SWELLING AT INJECTION SITE - ALLERGY CYMBALTA: HIVES - ALLERGY GABAPENTIN: SWELLING, ITCH, REDNEES - ALLERGY SURGICAL HISTORY TUBAL LIGATION ORAL SURGERY-ALL TEETH REMOVED 09/2015 FAMILY HISTORY FATHER: ALIVE, DIAGNOSED WITH HEART DISEASE MOTHER: ALIVE, HYPERTENSION, SUBSTANCE ABUSE 4 SON(S) , 2 DAUGHTER(S) - HEALTHY. MOM-HIGH CHOLESTEROL, COPD, RECOVERY DRUG ADDICT, NEUROLOGICAL DISORDER. SOCIAL HISTORY GENERAL: TOBACCO USE ARE YOU A:CURRENT SMOKER ARE YOU INTERESTED IN QUITTING?NOT READY TO QUIT COUNSELED THE PATIENT ON SMOKING EFFECTS, EDUCATION [id number]/09/2019 HOW MANY CIGARETTES A DAY DO YOU SMOKE?6-10 PATIENT COUNSELED ON THE DANGERS OF TOBACCO USE AND URGED TO QUIT:05/01/2018 SMOKING CESSATION INFORMATION GIVEN 1/9/19 DECLINED ALCOHOL SCREENING DID YOU HAVE A DRINK CONTAINING ALCOHOL IN THE PAST YEAR?NO POINTS0 INTERPRETATIONNEGATIVE RECREATIONAL DRUG USE DRUG USE?YES CAFFEINE CAFFEINE USE?YES HOW OFTEN AND HOW MUCH? SODA ALL DAY LONG PROTESTANT [id number] NONE NO DRUZE BELIEFS THAT WOULD IMPACT HEALTH CARE. LANGUAGE LANGUAGES SPOKEN:GUATEMALAN LEARNING BARRIERS / SPECIAL NEEDS BARRIERS TO LEARNING?NO HEARING IMPAIRED?NO VISION IMPAIRED?NO COGNITIVELY IMPAIRED?NO READINESS TO LEARN?YES LEARNING PREFERENCES?NO LEARNING CAPABILITIES PRESENT?YES EMOTIONAL BARRIERS?NO SPECIAL DEVICES?NO WILDLAND FIRE OPERATIONS SPECIALIST NEEDED?NO DOMESTIC VIOLENCE DO YOU FEEL SAFE IN YOUR ENVIRONMENT?YES MARITAL STATUS: . PAIN CLINIC PFS, CLERGY, PUBLIC HEALTH REFERRALS PFS REFERRAL NEEDED?NO CLERGY REFERRAL NEEDED?NO PUBLIC HEALTH REFERRAL NEEDED?NO WAS THE PROVIDER NOTIFIED OF ANY PERTINENT INFO? N/A HAS THE PATIENT BEEN EDUCATED REGARDING HIS/HER PLAN OF CARE?YES HAS THE PATIENT BEEN EDUCATED REGARDING PAIN, THE RISK FOR PAIN, THE IMPORTANCE OF EFFECTIVE PAIN MANAGEMENT, AND THE PAIN ASSESSMENT PROCESS?YES ADVANCE DIRECTIVE ADVANCE DIRECTIVE DISCUSSED WITH PATIENT:YES 02/28/18 PT DOESN'T HAVE ANY ADVANCED DIRECTIVES AND DECLINES INFORMATION ON HCP AT THIS TIME. AD 09/05/17 1331 REVIEWED WITH PT ADREVIEWED WITH PT 12/29/17 1510 BV02/28/18 0955 REVIEWED WITH PT. AD. HOSPITALIZATION/MAJOR DIAGNOSTIC PROCEDURE RELATED TO CHILDBIRTH AND SURGERY REVIEW OF SYSTEMS REVIEWED BY: PROVIDER: NISSA PRINCE . CONSTITUTIONAL: ANY CHANGE IN YOUR MEDICAL CONDITION? NO . CHILLS NO . FEVER NO . INFECTION: DO YOU HAVE NEW INFECTIONS? NO . DO YOU HAVE HISTORY OF MRSA? NO . MUSCULOSKELETAL: ANY NEW PATTERNS OF PAIN OR NUMBNESS? NO . GASTROENTEROLOGY: ANY NEW CHANGE IN BOWEL CONTROL? NO . GENITOURINARY: ANY NEW CHANGE IN BLADDER CONTROL? NO . IS THERE A CHANCE YOU COULD BE ? NO . HEMATOLOGY/LYMPH: DO YOU TAKE ANY BLOOD THINNERS? (FOR EXAMPLE- COUMADIN, PLAVIX, AGGRENOX, PLATEL, PRADAXA, OR XARELTO) NO . WHEN WAS YOUR LAST DOSE? DATE: TIME: . NEUROLOGY: HAVE YOU FALLEN IN THE PAST 12 MONTHS? YES IN JANUARY WE HAVE SEEN HER SINCE . ANY NEW EXTREMITY NUMBNESS OR WEAKNESS? NO . CARDIOLOGY: DO YOU HAVE A PACEMAKER OR DEFIBRILLATOR? NO . RESPIRATORY: HAVE YOU BEEN SICK IN THE PAST WEEK? NO . FEVER NO . FLU LIKE SYMPTOMS? NO . COUGH NO . INTEGUMENTARY: DO YOU HAVE ANY RASHES OR OPEN SORES? NO . ALLERGIC/IMMUNO: ARE YOU ALLERGIC TO IV DYE? NO . ANY NEW ALLERGIES? NO . PSYCHIATRIC: DO YOU HAVE THOUGHTS OF HURTING YOURSELF OR SOMEONE ELSE? NO . ARE YOU ABUSED, NEGLECTED, OR IN AN UNSAFE ENVIRONMENT? NO . ENDOCRINOLOGY: ARE YOU DIABETIC? NO . OTHER: DO YOU NEED ANY PRESCRIPTIONS? NO . IF YES, PLEASE LIST: ____ . ANY NEW PROBLEMS WITH YOUR MEDICATIONS? NO . WHEN DID YOU LAST EAT? ____ . WHEN DID YOU LAST DRINK? ____ . WHAT DID YOU LAST DRINK? ____ . NAME OF PERSON DRIVING YOU HOME? ____ . DO YOU HAVE ANY OTHER QUESTIONS OR CONCERNS NO . VITAL SIGNS WT 247.6 LBS, HT 62 IN, BMI 45.28 INDEX, BP 121/76 MM HG, HR 110 /MIN, RR 18 /MIN, TEMP 96.4 F, OXYGEN SAT % 98%, NA INITIALS AW 0938. EXAMINATION GENERAL EXAMINATION: GENERAL APPEARANCE:AWAKE,ALERT ,PLEAASANT . PSYCHAFFECT NORMAL . LUNGS:LUNG FARRELL ARE CLEAR TO AUSCULTATION BILATERALLY. GOOD MOVEMENT OF AIR . HEART:S1, S2 IN A REGULAR RATE AND RHYTHM. NO SIGNIFICANT MURMURS, RUBS OR GALLOPS NOTED . ASSESSMENTS LUMBAGO DUE TO DISPLACEMENT OF INTERVERTEBRAL DISC - M51.26 (PRIMARY) TREATMENT LUMBAGO DUE TO DISPLACEMENT OF INTERVERTEBRAL DISC CONTINUE METHOCARBAMOL TABLET, 500 MG, 1 CAP, ORALLY, BEDTIME PRN, NOTES: TAKES NEEDED CONTINUE TRAMADOL HCL TABLET, 50 MG, 1-2, ORALLY, Q8H PRN MDD6 CONTINUE IBUPROFEN TABLET, 800 MG, 1 TABLET, ORALLY, THREE TIMES DAILY NEEDED NOTES: ISTOP REGISTRY REVIEWED AND DEMONSTRATES COMPLLIANCE. URINE TOX TODAY, RISKS AND BENEFITS OF NARCOTIC/OPIOD MEDICATIONS WERE REVIEWED WITH PATIENT - THIS INCLUDES BUT IS NOT LIMITED TO RISK OF DEPENDANCE/DEVELOPMENT OF ADDICTION, MOOD DISTURBANCE AND DEPRESSION, OSTEOPOROSIS, HORMONAL AND LABIDAL CHANGES, RESPIRATORY DEPRESSION AND . PATIENT IS ADVISED NOT TO DRIVE OR DRINK ALCOHOL WHILE ON THESE MEDICATIONS. PROCEDURE CODES FA211 ESTABILISHED PATIENT [facility] CHARGE DISPOSITION & COMMUNICATION FOLLOW UP 3 MONTHS ELECTRONICALLY SIGNED BY NIKI CABELLO ON 05/14/2018 AT 04:56 PM EDT DISCLAIMER : THIS IS A VISIT SUMMARY EXTRACTED FROM THE [employer] CHART. IT IS NOT A COPY OF THE [employer] PROGRESS NOTE. MIKAYLA
== END ==
LOC: M PAIN 09:45
PROVIDERS: ATTEND Nurse Practitioner Family
DX: M51.26 Other intervertebral disc displacement, lumbar region (principal); J45.909 Unspecified asthma, uncomplicated; R42 Dizziness and giddiness; N81.10 Cystocele, unspecified; F17.210 Nicotine dependence, cigarettes, uncomplicated; M70.71 Other bursitis of hip, right hip; Z79.899 Other long term (current) drug therapy; Z87.440 Personal history of urinary (tract) infections; Z88.5 Allergy status to narcotic agent; Z88.8 Allergy status to other drugs, medicaments and biological substances

== ENCOUNTER → 2018-07-25 | Outpatient (CLI) | payer OTHER ==
[~2018-07-25] MED LIST changes: +ACET-716 PO; -ACET30TAB PO
--- NOTE | 2018-07-26 00:47 | ECWPNPC ---
PATIENT NAME: MADY COON : 1975 GENDER: FEMALE VISIT DATE: 07/25/2018 DISCHARGE DATE: 07/25/18 1052 VISIT LOCKED DATE TIME: PHYSICIAN: NISSA LLANOS RESOURCE: NISSA LLANOS REASON FOR APPOINTMENT 1. 3 MONTHS HISTORY OF PRESENT ILLNESS HISTORY OF PRESENT ILLNESS: HERE FOR F/U OF CHRONIC LOW BACK PAIN.RATING PAIN VAS 5/10.FINDS TRAMADOL AND ROBAXIN HELPFUL AT REDUCING PAIN AND KEEPING HER FUNCTIONAL .DENIES SIDE EFFECTS.USES THESE MEDICATIONS SPARINGLY FOR SEVERE PAIN EPISODES.REPORTING IMPROVED TOLERANCE TO ADL'S WITH CURRENT PAIN MEDICINE REGIMEN. PAIN THE PATIENT DESCRIBES THE PAIN... THE PATIENT DESCRIBES THE PAIN... THE PATIENT DESCRIBES THE PAIN... THE PATIENT DESCRIBES THE PAIN... THE PATIENT DESCRIBES THE PAIN... THE PATIENT DESCRIBES THE PAIN... THE PATIENT DESCRIBES THE PAIN... THE PATIENT DESCRIBES THE PAIN... FALL RISK SCREENING: SCREENING :NO FALLS REPORTED IN THE LAST YEAR CURRENT MEDICATIONS TAKING METHOCARBAMOL 500 MG TABLET 1 CAP ORALLY BEDTIME PRN, NOTES: TAKES NEEDED TAKING IBUPROFEN 800 MG TABLET 1 TABLET ORALLY THREE TIMES DAILY NEEDED TAKING TRAMADOL HCL 50 MG TABLET 1-2 ORALLY Q8H PRN MDD6 MEDICATION LIST REVIEWED AND RECONCILED WITH THE PATIENT PAST MEDICAL HISTORY ASTHMA UTI KINDEY INFECTION PARTIAL BLADDER PROLAPSE BACK PAIN ARTHRITIS RIGHT HIP BURSITIS FAINTING/DIZZINESS ALLERGIES KETOROLAC TROMETHAMINE: FACIAL SWELLING/HIVES - ALLERGY FLEXERIL: MOUTH SWELLING/HIVES - ALLERGY LIDOCAINE: REDNESS, SWELLING AT INJECTION SITE - ALLERGY CYMBALTA: HIVES - ALLERGY GABAPENTIN: SWELLING, ITCH, REDNEES - ALLERGY SURGICAL HISTORY TUBAL LIGATION ORAL SURGERY-ALL TEETH REMOVED 09/2015 FAMILY HISTORY FATHER: ALIVE, DIAGNOSED WITH HEART DISEASE MOTHER: ALIVE, HYPERTENSION, SUBSTANCE ABUSE 4 SON(S) , 2 DAUGHTER(S) - HEALTHY. MOM-HIGH CHOLESTEROL, COPD, RECOVERY DRUG ADDICT, NEUROLOGICAL DISORDER. SOCIAL HISTORY GENERAL: TOBACCO USE ARE YOU A:CURRENT SMOKER ARE YOU INTERESTED IN QUITTING?NOT READY TO QUIT COUNSELED THE PATIENT ON SMOKING EFFECTS, EDUCATION [id number]/09/2019 HOW MANY CIGARETTES A DAY DO YOU SMOKE?6-10 PATIENT COUNSELED ON THE DANGERS OF TOBACCO USE AND URGED TO QUIT:05/01/2018 SMOKING CESSATION INFORMATION GIVEN 02/28/18 DECLINED PAIN CLINIC PFS, CLERGY, PUBLIC HEALTH REFERRALS PFS REFERRAL NEEDED?NO CLERGY REFERRAL NEEDED?NO PUBLIC HEALTH REFERRAL NEEDED?NO WAS THE PROVIDER NOTIFIED OF ANY PERTINENT INFO? N/A HAS THE PATIENT BEEN EDUCATED REGARDING HIS/HER PLAN OF CARE?YES HAS THE PATIENT BEEN EDUCATED REGARDING PAIN, THE RISK FOR PAIN, THE IMPORTANCE OF EFFECTIVE PAIN MANAGEMENT, AND THE PAIN ASSESSMENT PROCESS?YES LATEX QUESTIONNAIRE LATEX ALLERGY : HAVE YOU EVER DEVELOPED ANY TYPE OF REACTION AFTER HANDLING LATEX PRODUCTS SUCH RUBBER GLOVES, CONDOMS, DIAPHRAGMS, BALLOONS, SOCKS, OR UNDERWEAR?NO LATEX ALLERGY : HAVE YOU EVER DEVELOPED ANY TYPE OF REACTION DURING OR AFTER DENTAL APPOINTMENT, VAGINAL/RECTAL EXAMINATION, SURGICAL PROCEDURE, OR ANY OTHER EXPOSURE?NO LATEX RISK : HAVE YOU EVER HAD ANY DIFFICULTY BREATHING OR HIVES AFTER EATING OR HANDLING ANY FRUITS, OR VEGETABLES; SUCH KIWI, BANANAS, STONE FRUITS, OR CHESTNUTSNO LATEX RISK : DO YOU HAVE A PREVIOUS PERSONAL HISTORY OF MORE THAN NINE SURGERIES, SPINA BIFIDA, OR REPEATED CATHERTIZATIONS? NO LATEX RISK : ARE YOU FREQUENTLY EXPOSED TO LATEX PRODUCTS IN YOUR OCCUPATION?NO DATE ASKED : 07/25/2018 CAFFEINE CAFFEINE USE?YES HOW OFTEN AND HOW MUCH? SODA ALL DAY LONG ADVANCE DIRECTIVE ADVANCE DIRECTIVE DISCUSSED WITH PATIENT:YES 07/25/18 PT DOESN'T HAVE ANY ADVANCED DIRECTIVES AND DECLINES INFORMATION ON HCP AT THIS TIME. BV MORMONISM [id number] NONE NO SIKHISM BELIEFS THAT WOULD IMPACT HEALTH CARE. LANGUAGE LANGUAGES SPOKEN:KHMER DOMESTIC VIOLENCE DO YOU FEEL SAFE IN YOUR ENVIRONMENT?YES MARITAL STATUS: . ALCOHOL SCREENING DID YOU HAVE A DRINK CONTAINING ALCOHOL IN THE PAST YEAR?NO POINTS0 INTERPRETATIONNEGATIVE RECREATIONAL DRUG USE DRUG USE?YES LEARNING BARRIERS / SPECIAL NEEDS BARRIERS TO LEARNING?NO HEARING IMPAIRED?NO VISION IMPAIRED?NO COGNITIVELY IMPAIRED?NO READINESS TO LEARN?YES LEARNING PREFERENCES?NO LEARNING CAPABILITIES PRESENT?YES EMOTIONAL BARRIERS?NO SPECIAL DEVICES?NO SERVER PROGRAMMER NEEDED?NO 09/05/17 1331 REVIEWED WITH PT ADREVIEWED WITH PT 12/29/17 1510 BV02/28/18 0955 REVIEWED WITH PT. ADREVIEWED WITH PT 07/25/18 1035 BV. HOSPITALIZATION/MAJOR DIAGNOSTIC PROCEDURE RELATED TO CHILDBIRTH AND SURGERY REVIEW OF SYSTEMS REVIEWED BY: PROVIDER: NISSA PRINCE . CONSTITUTIONAL: ANY CHANGE IN YOUR MEDICAL CONDITION? NO . CHILLS NO . FEVER NO . INFECTION: DO YOU HAVE NEW INFECTIONS? NO . DO YOU HAVE HISTORY OF MRSA? NO . MUSCULOSKELETAL: ANY NEW PATTERNS OF PAIN OR NUMBNESS? NO . GASTROENTEROLOGY: ANY NEW CHANGE IN BOWEL CONTROL? NO . GENITOURINARY: ANY NEW CHANGE IN BLADDER CONTROL? NO . IS THERE A CHANCE YOU COULD BE ? NO . HEMATOLOGY/LYMPH: DO YOU TAKE ANY BLOOD THINNERS? (FOR EXAMPLE- COUMADIN, PLAVIX, AGGRENOX, PLATEL, PRADAXA, OR XARELTO) NO . WHEN WAS YOUR LAST DOSE? DATE: TIME: . NEUROLOGY: HAVE YOU FALLEN IN THE PAST 12 MONTHS? YES, PT REPORTS A COUPLE FALLS IN PAST FEW MONTHS DUE TO WEAKNESS IN LEGS, DOES NOT RECALL EXACT DATES. DENIES ANY INJURIES OR ED VISIT WITH ANY FALL . ANY NEW EXTREMITY NUMBNESS OR WEAKNESS? NO . CARDIOLOGY: DO YOU HAVE A PACEMAKER OR DEFIBRILLATOR? NO . RESPIRATORY: HAVE YOU BEEN SICK IN THE PAST WEEK? NO . FEVER NO . FLU LIKE SYMPTOMS? NO . COUGH NO . INTEGUMENTARY: DO YOU HAVE ANY RASHES OR OPEN SORES? NO . ALLERGIC/IMMUNO: ARE YOU ALLERGIC TO IV DYE? NO . ANY NEW ALLERGIES? NO . PSYCHIATRIC: DO YOU HAVE THOUGHTS OF HURTING YOURSELF OR SOMEONE ELSE? NO . ARE YOU ABUSED, NEGLECTED, OR IN AN UNSAFE ENVIRONMENT? NO . ENDOCRINOLOGY: ARE YOU DIABETIC? NO . OTHER: DO YOU NEED ANY PRESCRIPTIONS? NO . IF YES, PLEASE LIST: ____ . ANY NEW PROBLEMS WITH YOUR MEDICATIONS? NO . WHEN DID YOU LAST EAT? ____ . WHEN DID YOU LAST DRINK? ____ . WHAT DID YOU LAST DRINK? ____ . NAME OF PERSON DRIVING YOU HOME? ____ . DO YOU HAVE ANY OTHER QUESTIONS OR CONCERNS NO . VITAL SIGNS WT 253.0 LBS, HT 62 IN, BMI 46.27 INDEX, BP 120/74 MM HG, HR 96 /MIN, RR 18 /MIN, TEMP 96.3 F, OXYGEN SAT % 98, NA INITIALS MP 1021, REVIEWED BY: BV. EXAMINATION GENERAL EXAMINATION: GENERAL APPEARANCE:AWAKE,ALERT ,PLEAASANT . PSYCHAFFECT NORMAL . LUNGS:LUNG FARRELL ARE CLEAR TO AUSCULTATION BILATERALLY. GOOD MOVEMENT OF AIR . HEART:S1, S2 IN A REGULAR RATE AND RHYTHM. NO SIGNIFICANT MURMURS, RUBS OR GALLOPS NOTED . 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 BRINGS IN MEDICATIONS WHICH IS APPROPRIATE FOR WHAT WAS DISPENSED. RECENT URINE TOXICOLOGY REVIEWED. NO UNAUTHORIZED MEDICATIONS. NO ILLICIT SUBSTANCES AND PRESCRIBED MEDICATIONS WERE PRESENT. , RISKS AND BENEFITS OF NARCOTIC/OPIOD MEDICATIONS WERE REVIEWED WITH PATIENT - THIS INCLUDES BUT IS NOT LIMITED TO RISK OF DEPENDANCE/DEVELOPMENT OF ADDICTION, MOOD DISTURBANCE AND DEPRESSION, OSTEOPOROSIS, HORMONAL AND LABIDAL CHANGES, RESPIRATORY DEPRESSION AND . PATIENT IS ADVISED NOT TO DRIVE OR DRINK ALCOHOL WHILE ON THESE MEDICATIONS. PROCEDURE CODES FA211 ESTABILISHED PATIENT [facility] CHARGE DISPOSITION & COMMUNICATION FOLLOW UP 3 MONTHS ELECTRONICALLY SIGNED BY NIKI CABELLO ON 07/25/2018 AT 10:56 AM EDT DISCLAIMER : THIS IS A VISIT SUMMARY EXTRACTED FROM THE [employer] CHART. IT IS NOT A COPY OF THE [employer] PROGRESS NOTE. MIKAYLA
== END ==
LOC: M PAIN 10:00
PROVIDERS: ATTEND Nurse Practitioner Family
DX: M51.26 Other intervertebral disc displacement, lumbar region (principal); Z79.891 Long term (current) use of opiate analgesic; Z79.899 Other long term (current) drug therapy; F17.210 Nicotine dependence, cigarettes, uncomplicated

== ENCOUNTER → 2018-11-26 | Outpatient (CLI) | payer OTHER | LOC: M PAIN 10:45 | PROVIDERS: ATTEND Family Medicine | DX: M47.816 Spondylosis without myelopathy or radiculopathy, lumbar region (principal); G89.29 Other chronic pain; J45.909 Unspecified asthma, uncomplicated; M19.90 Unspecified osteoarthritis, unspecified site; M79.7 Fibromyalgia; F17.210 Nicotine dependence, cigarettes, uncomplicated; Z88.4 Allergy status to anesthetic agent; Z88.8 Allergy status to other drugs, medicaments and biological substances; E66.01 Morbid (severe) obesity due to excess calories; Z68.41 Body mass index [BMI] 40.0-44.9, adult; Z79.891 Long term (current) use of opiate analgesic; Z79.899 Other long term (current) drug therapy ==

== ENCOUNTER → 2019-03-19 | Outpatient (CLI) | payer OTHER ==
--- NOTE | 2019-03-21 02:00 | ECWPNPC ---
PATIENT NAME: MADY COON : 1975 GENDER: FEMALE VISIT DATE: 03/19/2019 DISCHARGE DATE: 03/19/19 0000 VISIT LOCKED DATE TIME: PHYSICIAN: CARYL MATHIS RESOURCE: CARYL MATHIS REASON FOR APPOINTMENT 1. 3 MONTHS, CHRONIC PAIN HISTORY OF PRESENT ILLNESS HISTORY OF PRESENT ILLNESS: PAIN THE PATIENT DESCRIBES THE PAIN... 43-YEAR-OLD FEMALE IN FOR CHRONIC PAIN FOLLOW-UP. SHE RATES HER PAIN CURRENTLY AT A 6 OUT OF 10 AND DESCRIBES IT ACHING, SHARP, BURNING, STABBING, SORE, SHOOTING, AND TENDER. SHE FEELS HER MEDICATIONS ARE WORKING WELL AND DENIES MED SIDE EFFECTS AT THIS TIME. FALL RISK SCREENING: SCREENING :NO FALLS REPORTED IN THE LAST YEAR CURRENT MEDICATIONS TAKING IBUPROFEN 800 MG TABLET 1 TABLET ORALLY THREE TIMES DAILY NEEDED TAKING TRAMADOL HCL 50 MG TABLET 1-2 ORALLY Q8H PRN MDD6 TAKING METHOCARBAMOL 500 MG TABLET 1 CAP ORALLY BEDTIME PRN, NOTES: TAKES NEEDED MEDICATION LIST REVIEWED AND RECONCILED WITH THE PATIENT PAST MEDICAL HISTORY ASTHMA UTI KINDEY INFECTION PARTIAL BLADDER PROLAPSE BACK PAIN ARTHRITIS RIGHT HIP BURSITIS FAINTING/DIZZINESS MYALGIA ARTHROPATHY ALLERGIES KETOROLAC TROMETHAMINE: FACIAL SWELLING/HIVES - ALLERGY FLEXERIL: MOUTH SWELLING/HIVES - ALLERGY LIDOCAINE: REDNESS, SWELLING AT INJECTION SITE - ALLERGY CYMBALTA: HIVES - ALLERGY GABAPENTIN: SWELLING, ITCH, REDNEES - ALLERGY SURGICAL HISTORY TUBAL LIGATION ORAL SURGERY-ALL TEETH REMOVED 09/2015 FAMILY HISTORY FATHER: ALIVE, DIAGNOSED WITH UNSPECIFIED HEART DISEASE MOTHER: ALIVE, HYPERTENSION, SUBSTANCE ABUSE 4 SON(S) , 2 DAUGHTER(S) - HEALTHY. MOM-HIGH CHOLESTEROL, COPD, RECOVERY DRUG ADDICT, NEUROLOGICAL DISORDER. SOCIAL HISTORY GENERAL: TOBACCO USE ARE YOU A:CURRENT SMOKER ARE YOU INTERESTED IN QUITTING?NOT READY TO QUIT COUNSELED THE PATIENT ON SMOKING EFFECTS, EDUCATION DOSPERAX21/28/2020 HOW MANY CIGARETTES A DAY DO YOU SMOKE?6-10 HOW SOON AFTER YOU WAKE UP DO YOU SMOKE YOUR FIRST CIGARETTE?6-30 MIN HOW OFTEN DO YOU SMOKE CIGARETTES?EVERY DAY PATIENT COUNSELED ON THE DANGERS OF TOBACCO USE AND URGED TO QUIT:03/19/2019 SMOKING CESSATION INFORMATION GIVEN 11/26/18 DECLINED LANGUAGE LANGUAGES SPOKEN:[place]OSOTHO DOMESTIC VIOLENCE DO YOU FEEL SAFE IN YOUR ENVIRONMENT?YES RECREATIONAL DRUG USE DRUG USE?NO LEARNING BARRIERS / SPECIAL NEEDS BARRIERS TO LEARNING?NO HEARING IMPAIRED?NO VISION IMPAIRED?NO COGNITIVELY IMPAIRED?NO READINESS TO LEARN?YES LEARNING PREFERENCES?NO LEARNING CAPABILITIES PRESENT?YES EMOTIONAL BARRIERS?NO SPECIAL DEVICES?NO UNDERGROUND HEAVY EQUIPMENT OPERATOR NEEDED?NO LUNG CANCER SCREENING SMOKING STATUS:CURRENT SMOKER PAIN CLINIC PFS, CLERGY, PUBLIC HEALTH REFERRALS PFS REFERRAL NEEDED?NO CLERGY REFERRAL NEEDED?NO PUBLIC HEALTH REFERRAL NEEDED?NO WAS THE PROVIDER NOTIFIED OF ANY PERTINENT INFO? N/A HAS THE PATIENT BEEN EDUCATED REGARDING HIS/HER PLAN OF CARE?YES HAS THE PATIENT BEEN EDUCATED REGARDING PAIN, THE RISK FOR PAIN, THE IMPORTANCE OF EFFECTIVE PAIN MANAGEMENT, AND THE PAIN ASSESSMENT PROCESS?YES LATEX QUESTIONNAIRE LATEX ALLERGY : HAVE YOU EVER DEVELOPED ANY TYPE OF REACTION AFTER HANDLING LATEX PRODUCTS SUCH RUBBER GLOVES, CONDOMS, DIAPHRAGMS, BALLOONS, SOCKS, OR UNDERWEAR?NO LATEX ALLERGY : HAVE YOU EVER DEVELOPED ANY TYPE OF REACTION DURING OR AFTER DENTAL APPOINTMENT, VAGINAL/RECTAL EXAMINATION, SURGICAL PROCEDURE, OR ANY OTHER EXPOSURE?NO LATEX RISK : HAVE YOU EVER HAD ANY DIFFICULTY BREATHING OR HIVES AFTER EATING OR HANDLING ANY FRUITS, OR VEGETABLES; SUCH KIWI, BANANAS, STONE FRUITS, OR CHESTNUTSNO LATEX RISK : DO YOU HAVE A PREVIOUS PERSONAL HISTORY OF MORE THAN NINE SURGERIES, SPINA BIFIDA, OR REPEATED CATHERIZATIONS? NO LATEX RISK : ARE YOU FREQUENTLY EXPOSED TO LATEX PRODUCTS IN YOUR OCCUPATION?NO DATE ASKED : 11/26/2018 CAFFEINE CAFFEINE USE?YES HOW OFTEN AND HOW MUCH? SODA ALL DAY LONG ADVANCE DIRECTIVE ADVANCE DIRECTIVE DISCUSSED WITH PATIENT:YES 03/19/2019 PT DOESN'T HAVE ANY ADVANCED DIRECTIVES AND DECLINES INFORMATION ON HCP AT THIS TIME. JS RELIGIOUS [id number] NONE NO JAIN BELIEFS THAT WOULD IMPACT HEALTH CARE. MARITAL STATUS: . ALCOHOL SCREENING DID YOU HAVE A DRINK CONTAINING ALCOHOL IN THE PAST YEAR?NO POINTS0 INTERPRETATIONNEGATIVE 09/05/17 1331 REVIEWED WITH PT ADREVIEWED WITH PT 12/29/17 1510 BV02/28/18 0955 REVIEWED WITH PT. ADREVIEWED WITH PT 07/25/18 1035 BVREVIEWED WITH PATIENT 03/19/2019 1157 JS. HOSPITALIZATION/MAJOR DIAGNOSTIC PROCEDURE RELATED TO CHILDBIRTH AND SURGERY REVIEW OF SYSTEMS REVIEWED BY: PROVIDER: BHUMIKA BUSTILLOS . CONSTITUTIONAL: ANY CHANGE IN YOUR MEDICAL CONDITION? NO . CHILLS NO . FEVER NO . INFECTION: DO YOU HAVE NEW INFECTIONS? NO . DO YOU HAVE HISTORY OF MRSA? NO . MUSCULOSKELETAL: ANY NEW PATTERNS OF PAIN OR NUMBNESS? NO . GASTROENTEROLOGY: ANY NEW CHANGE IN BOWEL CONTROL? NO . GENITOURINARY: ANY NEW CHANGE IN BLADDER CONTROL? NO . IS THERE A CHANCE YOU COULD BE ? NO . HEMATOLOGY/LYMPH: DO YOU TAKE ANY BLOOD THINNERS? (FOR EXAMPLE- COUMADIN, PLAVIX, AGGRENOX, PLATEL, PRADAXA, OR XARELTO) NO . WHEN WAS YOUR LAST DOSE? DATE: TIME: . NEUROLOGY: HAVE YOU FALLEN IN THE PAST 12 MONTHS? NO . ANY NEW EXTREMITY NUMBNESS OR WEAKNESS? NO . CARDIOLOGY: DO YOU HAVE A PACEMAKER OR DEFIBRILLATOR? NO . RESPIRATORY: HAVE YOU BEEN SICK IN THE PAST WEEK? NO . FEVER NO . FLU LIKE SYMPTOMS? NO . COUGH NO . INTEGUMENTARY: DO YOU HAVE ANY RASHES OR OPEN SORES? NO . ALLERGIC/IMMUNO: ARE YOU ALLERGIC TO IV DYE? NO . ANY NEW ALLERGIES? NO . PSYCHIATRIC: DO YOU HAVE THOUGHTS OF HURTING YOURSELF OR SOMEONE ELSE? NO . ARE YOU ABUSED, NEGLECTED, OR IN AN UNSAFE ENVIRONMENT? NO . ENDOCRINOLOGY: ARE YOU DIABETIC? NO . OTHER: DO YOU NEED ANY PRESCRIPTIONS? YES . IF YES, PLEASE LIST: ____TRAMADOL . ANY NEW PROBLEMS WITH YOUR MEDICATIONS? NO . WHEN DID YOU LAST EAT? ____ . WHEN DID YOU LAST DRINK? ____ . WHAT DID YOU LAST DRINK? ____ . NAME OF PERSON DRIVING YOU HOME? ____ . DO YOU HAVE ANY OTHER QUESTIONS OR CONCERNS NO . VITAL SIGNS WT 249.4 LBS, HT 62 IN, BMI 45.61 INDEX, BP 123/71 MM HG, HR 98 /MIN, RR 18 /MIN, TEMP 97.6 F, OXYGEN SAT % 96%, SAFE IN ENV? (Y/N) YES, REVIEWED BY: DINA. EXAMINATION GENERAL EXAMINATION: GENERALNO ACUTE DISTRESS, WELL NOURISHED AND HYDRATED. PSYCHAPPROPRIATE MOOD AND AFFECT . LUNGS:CLEAR TO AUSCULTATION BILATERALLY, NO WHEEZES, RHONCHI, RALES. HEART:NO MURMURS, REGULAR RATE AND RHYTHM. ASSESSMENTS SPONDYLOSIS WITHOUT MYELOPATHY OR RADICULOPATHY, LUMBAR REGION - M47.816 (PRIMARY) TREATMENT SPONDYLOSIS WITHOUT MYELOPATHY OR RADICULOPATHY, LUMBAR REGION REFILL TRAMADOL HCL TABLET, 50 MG, 1-2, ORALLY, Q8H PRN MDD6, 30 DAYS, 180, REFILLS 2 CLINICAL NOTES: 43-YEAR-OLD FEMALE IN FOR CHRONIC PAIN FOLLOW-UP. AT LAST CLINIC VISIT SHE HAD A U TOX PERFORMED WHICH SHOWED BUPRENORPHINE THIS WAS DISCUSSED WITH PATIENT TODAY AND ANOTHER U TOX IS TO BE COLLECTED. PATIENT STATES SHE HAS NOT TAKEN THIS MEDICATION IN THE PAST. WE'LL CONTINUE CURRENT MEDICATION REGIMEN WITH FOLLOW-UP IN 3 MONTHS. PATIENT HAS EXPRESSED UNDERSTANDING OF AND WAS IN AGREEMENT WITH TREATMENT PLAN. GIVEN TIME TO ASK QUESTIONS AND EXPRESS CONCERNS., ISTOP REGISTRY REVIEWED AND DEMONSTRATES COMPLLIANCE. (REF # [id number] ) BRINGS IN MEDICATIONS WHICH IS APPROPRIATE FOR WHAT WAS DISPENSED. RECENT URINE TOXICOLOGY REVIEWED. NO ILLICIT SUBSTANCES AND PRESCRIBED MEDICATIONS WERE PRESENT. PROCEDURE CODES [id number] ESTABILISHED PATIENT [facility] CHARGE DISPOSITION & COMMUNICATION FOLLOW UP 3 MONTHS (REASON: BACK PAIN) ELECTRONICALLY SIGNED BY NIKI HERNANDEZ ON 03/20/2019 AT 03:45 PM EST DISCLAIMER : THIS IS A VISIT SUMMARY EXTRACTED FROM THE [employer] CHART. IT IS NOT A COPY OF THE [employer] PROGRESS NOTE. MIKAYLA
== END ==
LOC: M PAIN 11:30
PROVIDERS: ATTEND Family Medicine
DX: M47.816 Spondylosis without myelopathy or radiculopathy, lumbar region (principal); G89.29 Other chronic pain; J45.909 Unspecified asthma, uncomplicated; M79.10 Myalgia, unspecified site; F17.210 Nicotine dependence, cigarettes, uncomplicated; Z88.4 Allergy status to anesthetic agent; Z88.6 Allergy status to analgesic agent; Z88.8 Allergy status to other drugs, medicaments and biological substances; E66.01 Morbid (severe) obesity due to excess calories; Z68.42 Body mass index [BMI] 45.0-49.9, adult; Z79.891 Long term (current) use of opiate analgesic; Z79.899 Other long term (current) drug therapy

== ENCOUNTER → 2019-06-21 | Outpatient (CLI) | payer OTHER ==
--- NOTE | 2019-06-24 23:48 | ECWPNPC ---
PATIENT NAME: MADY COON : 1975 GENDER: FEMALE VISIT DATE: 06/21/2019 DISCHARGE DATE: 06/21/19 0738 VISIT LOCKED DATE TIME: PHYSICIAN: CARYL MATHIS RESOURCE: CARYL MATHIS REASON FOR APPOINTMENT 1. 3 [id number] HISTORY OF PRESENT ILLNESS HISTORY OF PRESENT ILLNESS: PAIN THE PATIENT DESCRIBES THE PAIN... PERMISSION REQUESTED AND RECEIVED FROM PATIENT TO PERFORM TELEHEALTH VISIT. 44-YEAR-OLD FEMALE IN FOR CHRONIC PAIN FOLLOW-UP. SHE RATES HER PAIN CURRENTLY AT A 9 OUT OF 10 BUT STATES THIS IS RELATED TO A LONG NIGHT WITH HER GRANDSON LAST NIGHT. SHE NORMALLY WOULD RATE HER PAIN AT A 5-6 OUT OF 10. SHE DESCRIBES HER PAIN CONSTANT ACHE, BURNING, STABBING, AND THROBBING. SHE FEELS HER MEDICATIONS ARE HELPFUL AND DENIES MED SIDE EFFECTS AT THIS TIME. FALL RISK SCREENING: SCREENING :NO FALLS REPORTED IN THE LAST YEAR CURRENT MEDICATIONS TAKING IBUPROFEN 800 MG TABLET 1 TABLET ORALLY THREE TIMES DAILY NEEDED TAKING METHOCARBAMOL 500 MG TABLET 1 CAP ORALLY BEDTIME PRN, NOTES: TAKES NEEDED TAKING TRAMADOL HCL 50 MG TABLET 1-2 ORALLY Q8H PRN MDD6 MEDICATION LIST REVIEWED AND RECONCILED WITH THE PATIENT PAST MEDICAL HISTORY ASTHMA UTI KINDEY INFECTION PARTIAL BLADDER PROLAPSE BACK PAIN ARTHRITIS RIGHT HIP BURSITIS FAINTING/DIZZINESS MYALGIA ARTHROPATHY ALLERGIES KETOROLAC TROMETHAMINE: FACIAL SWELLING/HIVES - ALLERGY FLEXERIL: MOUTH SWELLING/HIVES - ALLERGY LIDOCAINE: REDNESS, SWELLING AT INJECTION SITE - ALLERGY CYMBALTA: HIVES - ALLERGY GABAPENTIN: SWELLING, ITCH, REDNEES - ALLERGY SURGICAL HISTORY TUBAL LIGATION ORAL SURGERY-ALL TEETH REMOVED 09/2015 FAMILY HISTORY FATHER: ALIVE, DIAGNOSED WITH UNSPECIFIED HEART DISEASE MOTHER: ALIVE, HYPERTENSION, SUBSTANCE ABUSE 4 SON(S) , 2 DAUGHTER(S) - HEALTHY. MOM-HIGH CHOLESTEROL, COPD, RECOVERY DRUG ADDICT, NEUROLOGICAL DISORDER. SOCIAL HISTORY GENERAL: TOBACCO USE ARE YOU A:CURRENT SMOKER ARE YOU INTERESTED IN QUITTING?NOT READY TO QUIT COUNSELED THE PATIENT ON SMOKING EFFECTS, EDUCATION [id number]/30/2020 HOW MANY CIGARETTES A DAY DO YOU SMOKE?6-10 HOW SOON AFTER YOU WAKE UP DO YOU SMOKE YOUR FIRST CIGARETTE?6-30 MIN HOW OFTEN DO YOU SMOKE CIGARETTES?EVERY DAY PATIENT COUNSELED ON THE DANGERS OF TOBACCO USE AND URGED TO QUIT:03/19/2019 SMOKING CESSATION INFORMATION GIVEN 11/26/18 DECLINED LATEX QUESTIONNAIRE LATEX ALLERGY : HAVE YOU EVER DEVELOPED ANY TYPE OF REACTION AFTER HANDLING LATEX PRODUCTS SUCH RUBBER GLOVES, CONDOMS, DIAPHRAGMS, BALLOONS, SOCKS, OR UNDERWEAR?NO LATEX ALLERGY : HAVE YOU EVER DEVELOPED ANY TYPE OF REACTION DURING OR AFTER DENTAL APPOINTMENT, VAGINAL/RECTAL EXAMINATION, SURGICAL PROCEDURE, OR ANY OTHER EXPOSURE?NO DATE ASKED : 11/26/2018 LATEX RISK : HAVE YOU EVER HAD ANY DIFFICULTY BREATHING OR HIVES AFTER EATING OR HANDLING ANY FRUITS, OR VEGETABLES; SUCH KIWI, BANANAS, STONE FRUITS, OR CHESTNUTSNO LATEX RISK : DO YOU HAVE A PREVIOUS PERSONAL HISTORY OF MORE THAN NINE SURGERIES, SPINA BIFIDA, OR REPEATED CATHERIZATIONS? NO LATEX RISK : ARE YOU FREQUENTLY EXPOSED TO LATEX PRODUCTS IN YOUR OCCUPATION?NO LUNG CANCER SCREENING SMOKING STATUS:CURRENT SMOKER ALCOHOL SCREENING DID YOU HAVE A DRINK CONTAINING ALCOHOL IN THE PAST YEAR?NO POINTS0 INTERPRETATIONNEGATIVE RECREATIONAL DRUG USE DRUG USE?NO CAFFEINE CAFFEINE USE?YES HOW OFTEN AND HOW MUCH? SODA ALL DAY LONG ANABAPTISM [id number] NONE NO VOODOO BELIEFS THAT WOULD IMPACT HEALTH CARE. LANGUAGE LANGUAGES SPOKEN:LUXEMBOURGISH LEARNING BARRIERS / SPECIAL NEEDS BARRIERS TO LEARNING?NO HEARING IMPAIRED?NO VISION IMPAIRED?NO COGNITIVELY IMPAIRED?NO READINESS TO LEARN?YES LEARNING PREFERENCES?NO LEARNING CAPABILITIES PRESENT?YES EMOTIONAL BARRIERS?NO SPECIAL DEVICES?NO WIRE LATHER NEEDED?NO DOMESTIC VIOLENCE DO YOU FEEL SAFE IN YOUR ENVIRONMENT?YES MARITAL STATUS: . NEW PATIENT PAIN DIARY TODAY'S VISIT 06/20/19 PATIENT DESCRIBES PAIN :ACHING, BURNING, HAVE IT ALL THE TIME, SHARP, STABBING, THROBBING, SORE, SHOOTING FROM 0-10, WHAT LEVEL IS YOUR PAIN TODAY?7 PRECIPITATING FACTORS COLD, DAMPNESS, STAND TOO LONG ALLEVIATING FACTORS HOT SHOWERS, MEDS IMPACT ON FUNCTION SOME DAYS YES PAIN CLINIC PFS, CLERGY, PUBLIC HEALTH REFERRALS PFS REFERRAL NEEDED?NO CLERGY REFERRAL NEEDED?NO PUBLIC HEALTH REFERRAL NEEDED?NO WAS THE PROVIDER NOTIFIED OF ANY PERTINENT INFO? N/A HAS THE PATIENT BEEN EDUCATED REGARDING HIS/HER PLAN OF CARE?YES HAS THE PATIENT BEEN EDUCATED REGARDING PAIN, THE RISK FOR PAIN, THE IMPORTANCE OF EFFECTIVE PAIN MANAGEMENT, AND THE PAIN ASSESSMENT PROCESS?YES ADVANCE DIRECTIVE ADVANCE DIRECTIVE DISCUSSED WITH PATIENT:YES PT DOESN'T HAVE ANY ADVANCED DIRECTIVES AND DECLINES INFORMATION ON HCP AT THIS TIME. 09/05/17 1331 REVIEWED WITH PT ADREVIEWED WITH PT 12/29/17 1510 BV02/28/18 0955 REVIEWED WITH PT. ADRSHAUNAIEWED WITH PT 07/25/18 1035 BVREVIEWED WITH PATIENT 03/19/2019 1157 JS. HOSPITALIZATION/MAJOR DIAGNOSTIC PROCEDURE RELATED TO CHILDBIRTH AND SURGERY REVIEW OF SYSTEMS REVIEWED BY: PROVIDER: BHUMIKA BUSTILLOS . CONSTITUTIONAL: ANY CHANGE IN YOUR MEDICAL CONDITION? NO . CHILLS NO . FEVER NO . INFECTION: DO YOU HAVE NEW INFECTIONS? NO . DO YOU HAVE HISTORY OF MRSA? NO . MUSCULOSKELETAL: ANY NEW PATTERNS OF PAIN OR NUMBNESS? NO . GASTROENTEROLOGY: ANY NEW CHANGE IN BOWEL CONTROL? NO . GENITOURINARY: ANY NEW CHANGE IN BLADDER CONTROL? NO . IS THERE A CHANCE YOU COULD BE ? NO . HEMATOLOGY/LYMPH: DO YOU TAKE ANY BLOOD THINNERS? (FOR EXAMPLE- COUMADIN, PLAVIX, AGGRENOX, PLATEL, PRADAXA, OR XARELTO) NO . WHEN WAS YOUR LAST DOSE? DATE: TIME: . NEUROLOGY: HAVE YOU FALLEN IN THE PAST 12 MONTHS? YES, FELL DOWN STAIRS COU[LE DAYS AGO FROM PAIN AND WEAKNESS IN LEFT LEG, PT DENIES INJURIES . ANY NEW EXTREMITY NUMBNESS OR WEAKNESS? NO . CARDIOLOGY: DO YOU HAVE A PACEMAKER OR DEFIBRILLATOR? NO . RESPIRATORY: HAVE YOU BEEN SICK IN THE PAST WEEK? NO . FEVER NO . FLU LIKE SYMPTOMS? NO . COUGH NO . INTEGUMENTARY: DO YOU HAVE ANY RASHES OR OPEN SORES? NO . ALLERGIC/IMMUNO: ARE YOU ALLERGIC TO IV DYE? NO . ANY NEW ALLERGIES? NO . PSYCHIATRIC: DO YOU HAVE THOUGHTS OF HURTING YOURSELF OR SOMEONE ELSE? NO . ARE YOU ABUSED, NEGLECTED, OR IN AN UNSAFE ENVIRONMENT? NO . ENDOCRINOLOGY: ARE YOU DIABETIC? NO . OTHER: DO YOU NEED ANY PRESCRIPTIONS? YES, IBUPROPHEN, METHOCARBAMOL, ULTRAM . IF YES, PLEASE LIST: ____ . ANY NEW PROBLEMS WITH YOUR MEDICATIONS? NO . WHEN DID YOU LAST EAT? ____ . WHEN DID YOU LAST DRINK? ____ . WHAT DID YOU LAST DRINK? ____ . NAME OF PERSON DRIVING YOU HOME? ____ . DO YOU HAVE ANY OTHER QUESTIONS OR CONCERNS NO . EXAMINATION GENERAL EXAMINATION: GENERALNO ACUTE DISTRESS, WELL NOURISHED AND HYDRATED. PSYCHAPPROPRIATE MOOD AND AFFECT , ORIENTED X 3. ASSESSMENTS SPONDYLOSIS WITHOUT MYELOPATHY OR RADICULOPATHY, LUMBOSACRAL REGION - M47.817 (PRIMARY) TREATMENT SPONDYLOSIS WITHOUT MYELOPATHY OR RADICULOPATHY, LUMBOSACRAL REGION REFILL IBUPROFEN TABLET, 800 MG, 1 TABLET, ORALLY, THREE TIMES DAILY NEEDED, 30 DAYS, 90, REFILLS 2 REFILL METHOCARBAMOL TABLET, 500 MG, 1 CAP, ORALLY, BEDTIME PRN, 30 DAYS, 30, NOTES: TAKES NEEDED CLINICAL NOTES: 44-YEAR-OLD FEMALE IN FOR CHRONIC PAIN FOLLOW-UP. GIVEN PRESENTING SYMPTOMS RECOMMENDED CONTINUATION OF CURRENT MEDICATION REGIMEN WITH FOLLOW-UP IN 3 MONTHS. PATIENT HAS EXPRESSED UNDERSTANDING OF AND WAS IN AGREEMENT WITH TREATMENT PLAN. GIVEN TIME TO ASK QUESTIONS AND EXPRESS CONCERNS. TELEHEALTH VISIT PERFORMED VIA ZOOM. TIME SPENT WITH PATIENT 4 MINUTES. OTHERS CLINICAL NOTES: VIRTUAL VISIT, NO VITAL SIGNS DONE. EM 06/20/19. DISPOSITION & COMMUNICATION FOLLOW UP 3 MONTHS IN CLINIC (REASON: BACK PAIN) ELECTRONICALLY SIGNED BY NIKI HERNANDEZ ON 06/24/2019 AT 02:16 PM EDT DISCLAIMER : THIS IS A VISIT SUMMARY EXTRACTED FROM THE [employer] CHART. IT IS NOT A COPY OF THE [employer] PROGRESS NOTE. MIKAYLA
== END ==
LOC: M PAIN 09:30
PROVIDERS: ATTEND Family Medicine
DX: M47.817 Spondylosis without myelopathy or radiculopathy, lumbosacral region (principal); F17.210 Nicotine dependence, cigarettes, uncomplicated; Z79.891 Long term (current) use of opiate analgesic; Z79.899 Other long term (current) drug therapy; Z88.8 Allergy status to other drugs, medicaments and biological substances

== ENCOUNTER 2019-08-18 14:49 | Emergency (ER) | payer OTHER ==
[~2019-08-18] VITALS: Ht 157.5 cm; Wt 115.3 kg
--- NOTE | 2019-08-18 17:06 | REP ---
Clinical: Trauma. Technique: AP, lateral, bilateral oblique and coned-down views of the lumbosacral spine. Findings: Alignment and lordosis maintained. No acute fracture / compression injury or subluxation. Mild age-related changes noted. Impression: 1. Generalized age-related changes. 2. No acute fracture / compression injury or subluxation. Electronically Signed by Daryn Bettencourt MD 08/18/2019 04:57 P
[2019-08-18 17:14] VITALS: BP 130/87
[2019-08-18] MEDS ORDERED: NORCO, ANEXSIA 5/325MG TABLET (HYDROcodone/ACETAMINOPHEN) PO ONE (17:15)
== END 2019-08-18 17:15 | disposition home or self-care (01) ==
LOC: M ED 14:49
DX: S33.5XXA Sprain of ligaments of lumbar spine, initial encounter (principal); W10.9XXA Fall (on) (from) unspecified stairs and steps, initial encounter; Y92.9 Unspecified place or not applicable; Y93.9 Activity, unspecified; Y99.9 Unspecified external cause status; Z72.0 Tobacco use; Z88.8 Allergy status to other drugs, medicaments and biological substances

== ENCOUNTER 2019-11-02 14:59 | Emergency (ER) | payer OTHER ==
[~2019-11-02] VITALS: Ht 157.5 cm; Wt 116.1 kg
[2019-11-02] MEDS ORDERED: methylPREDNISolone 125MG 2ML VIAL IM ONE (15:45)
[2019-11-02] MEDS ORDERED: MEDR4PAK PO (15:45)
[2019-11-02] MEDS ORDERED: NYST50SS SS (15:45)
[2019-11-02] MEDS ORDERED: LIDOCAINE 5% OINT 30 GM TOP ONE (15:45)
[2019-11-02 16:19] VITALS: BP 141/79
== END 2019-11-02 16:24 | disposition home or self-care (01) ==
LOC: M ED 14:59
DX: B37.9 Candidiasis, unspecified (principal); K64.5 Perianal venous thrombosis; E78.5 Hyperlipidemia, unspecified; J45.909 Unspecified asthma, uncomplicated; G89.29 Other chronic pain; M54.9 Dorsalgia, unspecified; F17.200 Nicotine dependence, unspecified, uncomplicated; Z88.8 Allergy status to other drugs, medicaments and biological substances
CPT/HCPCS: 87880; 96372; 99283; J2930

== ENCOUNTER 2019-11-10 13:54 | Emergency (ER) | payer OTHER ==
[~2019-11-10] VITALS: Ht 157.5 cm; Wt 114.5 kg
[~2019-11-10 13:54] MED LIST changes: +MEDR4PAK PO; +NYST50SS SS
[2019-11-10 13:55] VITALS: BP 134/82
== END 2019-11-10 14:55 | disposition left against medical advice (07) ==
LOC: M ED 13:54
DX: Z53.21 Procedure and treatment not carried out due to patient leaving prior to being seen by health care provider (principal)

== ENCOUNTER → 2019-12-09 | Outpatient (CLI) | payer OTHER ==
--- NOTE | 2019-12-10 16:07 | ECWPNPC ---
PATIENT NAME: MADY COON : 1975 GENDER: FEMALE VISIT DATE: 12/09/2019 DISCHARGE DATE: 12/09/19 1010 VISIT LOCKED DATE TIME: PHYSICIAN: CARYL MATHIS PHYSICIAN PAGER NO: ACTIVE RESOURCE: CARYL MATHIS REASON FOR APPOINTMENT 1. BACK HISTORY OF PRESENT ILLNESS GENERAL: - 44-YEAR-OLD FEMALE IN FOR CHRONIC PAIN FOLLOW-UP. SHE RATES HER PAIN CURRENTLY AT A 5 OUT OF 10 AND DESCRIBES IT ACHING, BURNING, SHARP, STABBING, THROBBING, AND SHOOTING. PATIENT IS CURRENTLY TAKING TRAMADOL AND ADMITS THIS HAS BEEN HELPFUL. SHE DENIES MED SIDE EFFECTS AT THIS TIME. FALL RISK SCREENING: SCREENING :TWO OR MORE FALLS WITHOUT INJURY IN THE PAST YEAR PATIENT LAST FELL A MONTH AND A HALF AGO, PATIENT DID NOT SEEK MEDICAL TREATMENT. PAIN SCREENING: PATIENT HAS A COMPLAINT OF ACUTE OR CHRONIC PAIN :YES LOCATION OF PAIN:LOW BACK LEFT SIDE INTENSITY OF PAIN (SCALE OF 1 TO 10):5 WHAT DOES YOUR PAIN FEEL LIKE:ACHING, BURNING, SHARP, STABBING, THROBBING, SHOOTING DURATION:CONSTANT, AWAKENS FROM SLEEP PAIN IS INCREASED BY:ACTIVITIES, PROLONGED STANDING PAIN IS DECREASED BY:USE OF PAIN MEDICATIONS, OTHERS PATIENT USES A HEATING PAD ONCE OR TWICE A NIGHT TO HELP REDUCE THE PAIN IN HER LOWER BACK. NURSING NOTE: -. PAIN CENTER INTAKE QUESTIONS: DO YOU HAVE A HISTORY OF MRSA? :NO DO YOU TAKE A BLOOD THINNERS? :NO DO YOU HAVE ANY BLEEDING DISORDERS? :NO ANY NEW NUMBNESS OR WEAKNESS IN YOUR LEGS OR ARMS? :NO ANY PACEMAKER,DEFIBRILLATOR, OR DORSAL COLUMN STIMULATOR? :NO DO YOU HAVE ANY RASHES OR OPEN SORES? :NO ARE YOU ALLERGIC TO IV DYE? :NO ARE YOU DIABETIC? :NO ANY NEW PROBLEMS WITH YOUR MEDICATIONS? :NO HAVE YOU RECEIVED A VACCINE IN THE PAST 30 DAYS? :NO DO YOU PLAN TO RECEIVE A VACCINE IN THE NEXT 21 DAYS? :NO DO YOU NEED ANY PRESCRIPTION? :YES IBPROFEN DO YOU TAKE ANY IMMUNOSUPPRESSIVE MEDICATIONS? :NO IS THERE A CHANCE YOU COULD BE ? :NO ARE YOU BREAST FEEDING? :NO CURRENT MEDICATIONS TAKING IBUPROFEN 800 MG TABLET 1 TABLET ORALLY THREE TIMES DAILY NEEDED TAKING METHOCARBAMOL 500 MG TABLET 1 CAP ORALLY BEDTIME PRN, NOTES: TAKES NEEDED TAKING TRAMADOL HCL 50 MG TABLET 1-2 ORALLY Q8H PRN MDD6 MEDICATION LIST REVIEWED AND RECONCILED WITH THE PATIENT PAST MEDICAL HISTORY ASTHMA UTI KINDEY INFECTION PARTIAL BLADDER PROLAPSE BACK PAIN ARTHRITIS RIGHT HIP BURSITIS FAINTING/DIZZINESS MYALGIA ARTHROPATHY ALLERGIES KETOROLAC TROMETHAMINE: FACIAL SWELLING/HIVES - ALLERGY FLEXERIL: MOUTH SWELLING/HIVES - ALLERGY LIDOCAINE: REDNESS, SWELLING AT INJECTION SITE - ALLERGY CYMBALTA: HIVES - ALLERGY GABAPENTIN: SWELLING, ITCH, REDNEES - ALLERGY SURGICAL HISTORY TUBAL LIGATION ORAL SURGERY-ALL TEETH REMOVED 09/2015 FAMILY HISTORY FATHER: ALIVE, DIAGNOSED WITH UNSPECIFIED HEART DISEASE MOTHER: ALIVE, HYPERTENSION, SUBSTANCE ABUSE 4 SON(S) , 2 DAUGHTER(S) - HEALTHY. MOM-HIGH CHOLESTEROL, COPD, RECOVERY DRUG ADDICT, NEUROLOGICAL DISORDER. SOCIAL HISTORY GENERAL: TOBACCO USE ARE YOU A:CURRENT SMOKER ARE YOU INTERESTED IN QUITTING?NOT READY TO QUIT COUNSELED THE PATIENT ON SMOKING EFFECTS, EDUCATION [id number]/19/2020 HOW MANY CIGARETTES A DAY DO YOU SMOKE?6-10 HOW SOON AFTER YOU WAKE UP DO YOU SMOKE YOUR FIRST CIGARETTE?6-30 MIN HOW OFTEN DO YOU SMOKE CIGARETTES?EVERY DAY PATIENT COUNSELED ON THE DANGERS OF TOBACCO USE AND URGED TO QUIT:12/09/2019 SMOKING CESSATION INFORMATION GIVEN12/09/2019 11/26/18 DECLINED LATEX QUESTIONNAIRE LATEX ALLERGY : HAVE YOU EVER DEVELOPED ANY TYPE OF REACTION AFTER HANDLING LATEX PRODUCTS SUCH RUBBER GLOVES, CONDOMS, DIAPHRAGMS, BALLOONS, SOCKS, OR UNDERWEAR?NO LATEX ALLERGY : HAVE YOU EVER DEVELOPED ANY TYPE OF REACTION DURING OR AFTER DENTAL APPOINTMENT, VAGINAL/RECTAL EXAMINATION, SURGICAL PROCEDURE, OR ANY OTHER EXPOSURE?NO DATE ASKED : 11/26/2018 LATEX RISK : HAVE YOU EVER HAD ANY DIFFICULTY BREATHING OR HIVES AFTER EATING OR HANDLING ANY FRUITS, OR VEGETABLES; SUCH KIWI, BANANAS, STONE FRUITS, OR CHESTNUTSNO LATEX RISK : DO YOU HAVE A PREVIOUS PERSONAL HISTORY OF MORE THAN NINE SURGERIES, SPINA BIFIDA, OR REPEATED CATHERIZATIONS? NO LATEX RISK : ARE YOU FREQUENTLY EXPOSED TO LATEX PRODUCTS IN YOUR OCCUPATION?NO LUNG CANCER SCREENING SMOKING STATUS:CURRENT SMOKER ALCOHOL SCREENING DID YOU HAVE A DRINK CONTAINING ALCOHOL IN THE PAST YEAR?NO POINTS0 INTERPRETATIONNEGATIVE RECREATIONAL DRUG USE DRUG USE?NO CAFFEINE CAFFEINE USE?YES HOW OFTEN AND HOW MUCH? SODA ALL DAY LONG [employer] [id number] NONE NO MORAVIAN BELIEFS THAT WOULD IMPACT HEALTH CARE. LANGUAGE LANGUAGES SPOKEN:ITALIAN LEARNING BARRIERS / SPECIAL NEEDS BARRIERS TO LEARNING?NO HEARING IMPAIRED?NO VISION IMPAIRED?NO COGNITIVELY IMPAIRED?NO READINESS TO LEARN?YES LEARNING PREFERENCES?NO LEARNING CAPABILITIES PRESENT?YES EMOTIONAL BARRIERS?NO SPECIAL DEVICES?NO CHIEF LIBRARIAN EXTENSION DEPARTMENT NEEDED?NO DOMESTIC VIOLENCE DO YOU FEEL SAFE IN YOUR ENVIRONMENT?YES MARITAL STATUS: . NEW PATIENT PAIN DIARY TODAY'S VISIT 06/20/19 PATIENT DESCRIBES PAIN :ACHING, BURNING, HAVE IT ALL THE TIME, SHARP, STABBING, THROBBING, SORE, SHOOTING FROM 0-10, WHAT LEVEL IS YOUR PAIN TODAY?7 PRECIPITATING FACTORS COLD, DAMPNESS, STAND TOO LONG ALLEVIATING FACTORS HOT SHOWERS, MEDS IMPACT ON FUNCTION SOME DAYS YES PAIN CLINIC PFS, CLERGY, PUBLIC HEALTH REFERRALS PFS REFERRAL NEEDED?NO CLERGY REFERRAL NEEDED?NO PUBLIC HEALTH REFERRAL NEEDED?NO WAS THE PROVIDER NOTIFIED OF ANY PERTINENT INFO? N/A HAS THE PATIENT BEEN EDUCATED REGARDING HIS/HER PLAN OF CARE?YES HAS THE PATIENT BEEN EDUCATED REGARDING PAIN, THE RISK FOR PAIN, THE IMPORTANCE OF EFFECTIVE PAIN MANAGEMENT, AND THE PAIN ASSESSMENT PROCESS?YES ADVANCE DIRECTIVE ADVANCE DIRECTIVE DISCUSSED WITH PATIENT:YES PT DOESN'T HAVE ANY ADVANCED DIRECTIVES AND DECLINES INFORMATION ON HCP AT THIS TIME. 09/05/17 1331 REVIEWED WITH PT ADREVIEWED WITH PT 12/29/17 1510 BV02/28/18 0955 REVIEWED WITH PT. ADREVIEWED WITH PT 07/25/18 1035 BVREVIEWED WITH PATIENT 03/19/2019 1157 JS. HOSPITALIZATION/MAJOR DIAGNOSTIC PROCEDURE RELATED TO CHILDBIRTH AND SURGERY REVIEW OF SYSTEMS CONSTITUTIONAL: ANY RECENT FEVER NO . CHILLS NO . WEIGHT CHANGE OF UNKNOWN REASONS NO . GASTROENTEROLOGY: NEW UNEXPLAINABLE CHANGES IN BOWEL CONTROL NO . CONSTIPATION NO . GENITOURINARY: ANY NEW CHANGE IN BLADDER CONTROL? NO . NEUROLOGY: NEW ONSET DIZZINESS OR NEUROLOGICAL CHANGES NOT MENTIONED NO . NEW NUMBNESS OR PAIN PATTERNS NOT MENTIONED AND PERTINENT TO TODAY'S VISIT NO . CARDIOLOGY: NEW CHEST PRESSURE NO . NEW CHEST PAIN NO . RESPIRATORY: UNEXPLAINABLE COUGH NO . NEW SHORTNESS OF BREATH NO . VITAL SIGNS WT 261.4 LBS, HT 62 IN, BMI 47.81 INDEX, BP 138/82 MM HG, HR 92 /MIN, RR 18 /MIN, TEMP 96.7 F, OXYGEN SAT % 95%, SAFE IN ENV? (Y/N) YES, NA INITIALS AW 0945, REVIEWED BY: ZAC. EXAMINATION GENERAL EXAMINATION: GENERALNO ACUTE DISTRESS, WELL NOURISHED AND HYDRATED. PSYCHAPPROPRIATE MOOD AND AFFECT . LUNGS:CLEAR TO AUSCULTATION BILATERALLY, NO WHEEZES, RHONCHI, RALES. HEART:NO MURMURS, REGULAR RATE AND RHYTHM. ASSESSMENTS SPONDYLOSIS WITHOUT MYELOPATHY OR RADICULOPATHY, LUMBAR REGION - M47.816 (PRIMARY) TREATMENT SPONDYLOSIS WITHOUT MYELOPATHY OR RADICULOPATHY, LUMBAR REGION CLINICAL NOTES: 44-YEAR-OLD FEMALE IN FOR CHRONIC PAIN FOLLOW-UP. GIVEN PRESENTING SYMPTOMS RECOMMENDED CONTINUATION OF CURRENT MEDICATION REGIMEN WITH FOLLOW-UP IN 3 MONTHS. PATIENT HAS EXPRESSED UNDERSTANDING OF AND WAS IN AGREEMENT WITH TREATMENT PLAN. GIVEN TIME TO ASK QUESTIONS AND EXPRESS CONCERNS. , ISTOP REGISTRY REVIEWED AND DEMONSTRATES COMPLLIANCE. (REF # [id number] ) BRINGS IN MEDICATIONS WHICH IS APPROPRIATE FOR WHAT WAS DISPENSED. RECENT URINE TOXICOLOGY REVIEWED. NO UNAUTHORIZED MEDICATIONS. NO ILLICIT SUBSTANCES AND PRESCRIBED MEDICATIONS WERE PRESENT. PREVENTIVE MEDICINE PAIN CLINIC TEACHING: THE PATIENT HAS BEEN EDUCATED REGARDING PAIN, THE RISK FOR PAIN, THE IMPORTANCE OF EFFECTIVE PAIN MANAGEMENT, AND THE PAIN ASSESSMENT PROCESS. : DISCUSSED CARE PLAN WITH PATIENT, PATIENT VERBALIZES UNDERSTANDING. PATIENT WAS GIVEN A NARCOTIC AGREEMENT AND A UTOX SCREENING. PROCEDURE CODES FA211 ESTABILISHED PATIENT [facility] CHARGE DISPOSITION & COMMUNICATION FOLLOW UP 3 MONTHS (REASON: BACK PAIN) ELECTRONICALLY SIGNED BY NIKI HERNANDEZ ON 12/10/2019 AT 03:07 PM EDT DISCLAIMER : THIS IS A VISIT SUMMARY EXTRACTED FROM THE [facility] CHART. IT IS NOT A COPY OF THE [facility] PROGRESS NOTE. MTDD
== END ==
LOC: M PAIN 09:30
PROVIDERS: ATTEND Family Medicine
DX: M47.816 Spondylosis without myelopathy or radiculopathy, lumbar region (principal); J45.909 Unspecified asthma, uncomplicated; F17.210 Nicotine dependence, cigarettes, uncomplicated; Z79.891 Long term (current) use of opiate analgesic; Z79.1 Long term (current) use of non-steroidal anti-inflammatories (NSAID); Z79.899 Other long term (current) drug therapy; Z88.4 Allergy status to anesthetic agent; Z88.8 Allergy status to other drugs, medicaments and biological substances

== ENCOUNTER 2020-08-19 17:43 | Emergency (ER) | payer OTHER ==
[~2020-08-19] VITALS: Ht 157.5 cm; Wt 118.4 kg
[~2020-08-19 17:43] MED LIST changes: +METH-1164 PO; -METH1TAB40 PO
[2020-08-19] MEDS ORDERED: IBUP1TAB7 PO (18:02)
--- NOTE | 2020-08-19 21:30 | REPVR ---
PROCEDURE INFORMATION: Exam: US Duplex Left Lower Extremity Veins, Limited Exam date and time: 08/19/2020 9:06 PM Age: 45 years old Clinical indication: Pain; Leg, lower; Left; Additional info: Swelling/pain TECHNIQUE: Imaging protocol: Real-time Duplex ultrasound of the Left Lower Extremity with 2-D ruiz scale, color Doppler flow and spectral waveform analysis with image documentation. Limited exam focused on the left lower extremity veins. COMPARISON: US Duplex, Ext,LOWER veins,unilat 01/12/2015 10:31 PM FINDINGS: Left deep veins: Unremarkable. The common femoral, femoral, proximal profunda femoral and popliteal veins are patent without thrombus. Normal Doppler waveforms. Normal compressibility and/or augmentation response. Left superficial veins: Unremarkable. Saphenofemoral junction is patent without thrombus. Soft tissues: Unremarkable. IMPRESSION: No evidence of deep vein thrombosis. Electronically signed by: Joe Westbrook On 08/19/2020 21:29:47 PM
[2020-08-19 21:59] VITALS: BP 135/88
== END 2020-08-19 22:00 | disposition home or self-care (01) ==
LOC: M ED 17:43
DX: M71.22 Synovial cyst of popliteal space [Baker], left knee (principal); E66.9 Obesity, unspecified; E78.5 Hyperlipidemia, unspecified; G43.909 Migraine, unspecified, not intractable, without status migrainosus; J45.909 Unspecified asthma, uncomplicated; K21.9 Gastro-esophageal reflux disease without esophagitis; M54.9 Dorsalgia, unspecified; M16.12 Unilateral primary osteoarthritis, left hip; F17.200 Nicotine dependence, unspecified, uncomplicated; Z79.899 Other long term (current) drug therapy; Z88.1 Allergy status to other antibiotic agents; Z88.8 Allergy status to other drugs, medicaments and biological substances

== ENCOUNTER 2020-09-05 10:32 | Emergency (ER) | payer OTHER ==
[~2020-09-05] VITALS: Ht 157.5 cm; Wt 104.5 kg
[~2020-09-05 10:32] MED LIST changes: +IBUP1TAB7 PO
--- NOTE | 2020-09-05 12:57 | REP ---
INDICATION: posterior knee pain, history of bakers cyst, ? rupture. TECHNIQUE: Multiple ultrasonographic images of the deep venous structures of the left thigh were obtained from the level of the common femoral vein to the popliteal vein in the longitudinal and transverse scan planes along with Doppler interrogation and color flow Doppler imaging. Comparison compression images of the right common femoral vein also performed. FINDINGS: There is no abnormal echogenic material seen within any of the visualized deep venous structures that would suggest acute thrombosis. Coaptation is unremarkable throughout. Doppler interrogation shows an expected response to respiratory variability and augmentation. The color flow Doppler images show what appears to be a normal vascular pattern throughout. There is no evidence of a Dsouza's cyst in the popliteal fossa. However with this posterior post fluid seen around the femoral condyle suggesting a small joint effusion with a thickness of 3 mm x 2.7 x 2.2 cm. Comparison of the right common femoral vein shows full compressibility. IMPRESSION: There is no ultrasonographic evidence of deep venous thrombosis involving any of the visualized deep venous structures of the left thigh as described above. There is no Dsouza cyst evident but a small joint effusion is suggested with fluid surrounding the femoral condyle 3 mm thick. Accredited by the [employer] in Vascular Peripheral Ultrasound. <Electronically signed by Claude Solomon > 09/05/20 [id number]
--- NOTE | 2020-09-05 13:05 | REP ---
INDICATION: pain to knee cap, felt a pop. COMPARISON: MRI 08/25/2015, X-RAY FEMUR 01/12/2015. TECHNIQUE: FIVE VIEWS FINDINGS: AP VIEW SHOWS SPURRING OF THE TIBIAL SPINES BUT THERE IS NO JOINT SPACE NARROWING IN THE MEDIAL OR LATERAL COMPARTMENTS NOR PATELLOFEMORAL JOINT. THE LATERAL VIEW RAISES SUSPICION OF A SMALL JOINT EFFUSION. THERE IS NO PATELLAR SUBLUXATION OR DISLOCATION. THERE IS NO FRACTURE OR FOCAL BONE LESION. I SEE NO OSTEOCHONDRAL DEFECT OR LOOSE BODY. IMPRESSION: SOME MINOR DEGENERATIVE CHANGE WITH SPURRING OF THE TIBIAL SPINES BUT NO JOINT SPACE NARROWING, OSTEOCHONDRAL DEFECT OR LOOSE BODY. THERE MAY BE A SMALL JOINT EFFUSION ON THE LATERAL VIEW. NO FOCAL BONE LESION. <Electronically signed by Claude Solomon > 09/05/20 [id number]
[2020-09-05 13:40] VITALS: BP 132/91
== END 2020-09-05 13:32 | disposition home or self-care (01) ==
LOC: M ED 10:32
DX: M25.462 Effusion, left knee (principal); E78.5 Hyperlipidemia, unspecified; J45.909 Unspecified asthma, uncomplicated; G43.909 Migraine, unspecified, not intractable, without status migrainosus; F17.200 Nicotine dependence, unspecified, uncomplicated; Z88.8 Allergy status to other drugs, medicaments and biological substances

== ENCOUNTER → 2020-09-18 | Outpatient (CLI) | payer OTHER, MEDICAID ==
--- NOTE | 2020-09-22 00:39 | ECWPNPC ---
PATIENT NAME: MADY PERSON : 1975 GENDER: FEMALE VISIT DATE: 09/18/2020 DISCHARGE DATE: 09/18/20 1138 VISIT LOCKED DATE TIME: PHYSICIAN: CARYL MATHIS PHYSICIAN PAGER NO: INACTIVE RESOURCE: CARYL MATHIS REASON FOR APPOINTMENT 1. BACK PAIN HISTORY OF PRESENT ILLNESS DEPRESSION SCREENING: PHQ-2 (2015 EDITION) LITTLE INTEREST OR PLEASURE IN DOING THINGS?NOT AT ALL FEELING DOWN, DEPRESSED, OR HOPELESS?NOT AT ALL TOTAL SCORE0 GENERAL: HPI 45-YEAR-OLD FEMALE IN FOR CHRONIC PAIN FOLLOW-UP. SHE RATES HER PAIN CURRENTLY AT AN 8 OUT OF 10 AND DESCRIBES IT ACHING, BURNING, SHARP, STABBING, THROBBING, AND SHOOTING. PATIENT FEELS HER MEDICATIONS ARE HELPFUL AND DENIES MED SIDE EFFECTS AT THIS TIME.. -. FALL RISK SCREENING: SCREENING : ONE FALL REPORTED IN THE LAST YEAR WITH INJURY. PAIN SCREENING: PATIENT HAS A COMPLAINT OF ACUTE OR CHRONIC PAIN :YES LOCATION OF PAIN:LOW BACK, KNEES INTENSITY OF PAIN (SCALE OF 1 TO 10):8 WHAT DOES YOUR PAIN FEEL LIKE:ACHING, BURNING, SHARP, STABBING, THROBBING, SHOOTING DURATION:CONTINOUS, CONSTANT PAIN IS INCREASED BY:ACTIVITIES PAIN IS DECREASED BY:USE OF PAIN MEDICATIONS NURSING NOTE: -. PAIN CENTER INTAKE QUESTIONS: DO YOU HAVE A HISTORY OF MRSA? :NO DO YOU TAKE A BLOOD THINNERS? :NO DO YOU HAVE ANY BLEEDING DISORDERS? :NO ANY NEW NUMBNESS OR WEAKNESS IN YOUR LEGS OR ARMS? :YES LEFT LEG ANY PACEMAKER,DEFIBRILLATOR, OR DORSAL COLUMN STIMULATOR? :NO DO YOU HAVE ANY RASHES OR OPEN SORES? :NO ARE YOU ALLERGIC TO IV DYE? :NO ARE YOU DIABETIC? :NO ANY NEW PROBLEMS WITH YOUR MEDICATIONS? :NO HAVE YOU RECEIVED A VACCINE IN THE PAST 30 DAYS? :NO DO YOU PLAN TO RECEIVE A VACCINE IN THE NEXT 21 DAYS? :NO DO YOU NEED ANY PRESCRIPTION? :YES METHOCARBAMOL DO YOU TAKE ANY IMMUNOSUPPRESSIVE MEDICATIONS? :NO DO YOU HAVE ANY KIDNEY OR LIVER DISEASE? :NO IS THERE A CHANCE YOU COULD BE ? :NO ARE YOU BREAST FEEDING? :NO CURRENT MEDICATIONS TAKING METHOCARBAMOL 500 MG TABLET 1 CAP ORALLY BEDTIME PRN, NOTES: TAKES NEEDED TAKING IBUPROFEN 800 MG TABLET 1 TABLET ORALLY THREE TIMES DAILY NEEDED TAKING TRAMADOL HCL 50 MG TABLET 1-2 ORALLY Q8H PRN MDD6 MEDICATION LIST REVIEWED AND RECONCILED WITH THE PATIENT PAST MEDICAL HISTORY ASTHMA UTI KINDEY INFECTION PARTIAL BLADDER PROLAPSE BACK PAIN ARTHRITIS RIGHT HIP BURSITIS FAINTING/DIZZINESS MYALGIA ARTHROPATHY ALLERGIES KETOROLAC TROMETHAMINE: FACIAL SWELLING/HIVES - ALLERGY FLEXERIL: MOUTH SWELLING/HIVES - ALLERGY LIDOCAINE: REDNESS, SWELLING AT INJECTION SITE - ALLERGY CYMBALTA: HIVES - ALLERGY GABAPENTIN: SWELLING, ITCH, REDNEES - ALLERGY SOCIAL HISTORY GENERAL: TOBACCO USE ARE YOU A:CURRENT SMOKER HOW OFTEN DO YOU SMOKE CIGARETTES?EVERY DAY HOW SOON AFTER YOU WAKE UP DO YOU SMOKE YOUR FIRST CIGARETTE?6-30 MIN HOW MANY CIGARETTES A DAY DO YOU SMOKE?6-10 ARE YOU INTERESTED IN QUITTING?NOT READY TO QUIT PATIENT COUNSELED ON THE DANGERS OF TOBACCO USE AND URGED TO QUIT:12/09/2019 COUNSELED THE PATIENT ON SMOKING EFFECTS, EDUCATION [id number]/19/2020 SMOKING CESSATION INFORMATION GIVEN12/09/2019 11/26/18 DECLINED LATEX QUESTIONNAIRE LATEX ALLERGY : HAVE YOU EVER DEVELOPED ANY TYPE OF REACTION AFTER HANDLING LATEX PRODUCTS SUCH RUBBER GLOVES, CONDOMS, DIAPHRAGMS, BALLOONS, SOCKS, OR UNDERWEAR?NO LATEX ALLERGY : HAVE YOU EVER DEVELOPED ANY TYPE OF REACTION DURING OR AFTER DENTAL APPOINTMENT, VAGINAL/RECTAL EXAMINATION, SURGICAL PROCEDURE, OR ANY OTHER EXPOSURE?NO DATE ASKED : 11/26/2018 LATEX RISK : HAVE YOU EVER HAD ANY DIFFICULTY BREATHING OR HIVES AFTER EATING OR HANDLING ANY FRUITS, OR VEGETABLES; SUCH KIWI, BANANAS, STONE FRUITS, OR CHESTNUTSNO LATEX RISK : DO YOU HAVE A PREVIOUS PERSONAL HISTORY OF MORE THAN NINE SURGERIES, SPINA BIFIDA, OR REPEATED CATHERIZATIONS? NO LATEX RISK : ARE YOU FREQUENTLY EXPOSED TO LATEX PRODUCTS IN YOUR OCCUPATION?NO LUNG CANCER SCREENING SMOKING STATUS:CURRENT SMOKER ALCOHOL SCREENING DID YOU HAVE A DRINK CONTAINING ALCOHOL IN THE PAST YEAR?NO POINTS0 INTERPRETATIONNEGATIVE RECREATIONAL DRUG USE DRUG USE?NO CAFFEINE CAFFEINE USE?YES HOW OFTEN AND HOW MUCH? SODA ALL DAY LONG LATTER-DAY [id number] NONE NO SAMARITAN BELIEFS THAT WOULD IMPACT HEALTH CARE. LANGUAGE LANGUAGES SPOKEN:AMHARIC LEARNING BARRIERS / SPECIAL NEEDS BARRIERS TO LEARNING?NO HEARING IMPAIRED?NO VISION IMPAIRED?NO COGNITIVELY IMPAIRED?NO READINESS TO LEARN?YES LEARNING PREFERENCES?NO LEARNING CAPABILITIES PRESENT?YES EMOTIONAL BARRIERS?NO SPECIAL DEVICES?NO COMMUNICATIONS BILLING ANALYST NEEDED?NO DOMESTIC VIOLENCE DO YOU FEEL SAFE IN YOUR ENVIRONMENT?YES MARITAL STATUS: . TODAY'S VISIT 06/20/19 PATIENT DESCRIBES PAIN :ACHING, BURNING, HAVE IT ALL THE TIME, SHARP, STABBING, THROBBING, SORE, SHOOTING FROM 0-10, WHAT LEVEL IS YOUR PAIN TODAY?7 PRECIPITATING FACTORS COLD, DAMPNESS, STAND TOO LONG ALLEVIATING FACTORS HOT SHOWERS, MEDS IMPACT ON FUNCTION SOME DAYS YES - PFS REFERRAL NEEDED?NO CLERGY REFERRAL NEEDED?NO PUBLIC HEALTH REFERRAL NEEDED?NO WAS THE PROVIDER NOTIFIED OF ANY PERTINENT INFO? N/A HAS THE PATIENT BEEN EDUCATED REGARDING HIS/HER PLAN OF CARE?YES HAS THE PATIENT BEEN EDUCATED REGARDING PAIN, THE RISK FOR PAIN, THE IMPORTANCE OF EFFECTIVE PAIN MANAGEMENT, AND THE PAIN ASSESSMENT PROCESS?YES ADVANCE DIRECTIVE ADVANCE DIRECTIVE DISCUSSED WITH PATIENT:YES PT DOESN'T HAVE ANY ADVANCED DIRECTIVES AND DECLINES INFORMATION ON HCP AT THIS TIME. 09/05/17 1331 REVIEWED WITH PT ADREVIEWED WITH PT 12/29/17 1510 BV02/28/18 0955 REVIEWED WITH PT. ADREVIEWED WITH PT 07/25/18 1035 BVREVIEWED WITH PATIENT 03/19/2019 1157 JS. REVIEW OF SYSTEMS CONSTITUTIONAL: ANY RECENT FEVER NO . CHILLS NO . WEIGHT CHANGE OF UNKNOWN REASONS NO . GASTROENTEROLOGY: NEW UNEXPLAINABLE CHANGES IN BOWEL CONTROL NO . CONSTIPATION NO . GENITOURINARY: ANY NEW CHANGE IN BLADDER CONTROL? NO . NEUROLOGY: NEW ONSET DIZZINESS OR NEUROLOGICAL CHANGES NOT MENTIONED NO . NEW NUMBNESS OR PAIN PATTERNS NOT MENTIONED AND PERTINENT TO TODAY'S VISIT NO . CARDIOLOGY: NEW CHEST PRESSURE NO . PATIENT DENIES NO . RESPIRATORY: UNEXPLAINABLE COUGH NO . NEW SHORTNESS OF BREATH NO . VITAL SIGNS WT 260.2 LBS, HT 62 IN, BMI 47.59 INDEX, BP 134/84 MM HG, HR 108 /MIN, RR 18 /MIN, TEMP 97.5 F, OXYGEN SAT % 96%, SAFE IN ENV? (Y/N) Y, NA INITIALS AW 1118, REVIEWED BY: EM. EXAMINATION GENERAL EXAMINATION: GENERALNO ACUTE DISTRESS, WELL NOURISHED AND HYDRATED. PSYCHAPPROPRIATE MOOD AND AFFECT . LUNGS:CLEAR TO AUSCULTATION BILATERALLY, NO WHEEZES, RHONCHI, RALES. HEART:NO MURMURS, REGULAR RATE AND RHYTHM. ASSESSMENTS CHRONIC PRESCRIPTION OPIATE USE - Z79.891 (PRIMARY) SPONDYLOSIS WITHOUT MYELOPATHY OR RADICULOPATHY, LUMBOSACRAL REGION - M47.817 TREATMENT CHRONIC PRESCRIPTION OPIATE USE LAB: URINE TEST GROUP LENCHO BROWNING 09/18/2020 11:34:54 AM > METHOCARBAMOL 09/16/20 TRAMADOL 09/18/20 SPONDYLOSIS WITHOUT MYELOPATHY OR RADICULOPATHY, LUMBOSACRAL REGION REFILL METHOCARBAMOL TABLET, 500 MG, 1 CAP, ORALLY, BEDTIME PRN, 30 DAYS, 30, NOTES: TAKES NEEDED NOTES: GIVEN PRESENTING SYMPTOMS RECOMMEND CONTINUATION OF CURRENT MEDICATION REGIMEN WITH FOLLOW-UP IN 3 MONTHS. PATIENT HAS EXPRESSED UNDERSTANDING OF AND WAS IN AGREEMENT WITH TREATMENT PLAN. GIVEN TIME TO ASK QUESTIONS AND EXPRESS CONCERNS. ISTOP REGISTRY REVIEWED AND DEMONSTRATES COMPLLIANCE. (REF #[id number] ) BRINGS IN MEDICATIONS WHICH IS APPROPRIATE FOR WHAT WAS DISPENSED. RECENT URINE TOXICOLOGY REVIEWED. NO UNAUTHORIZED MEDICATIONS. NO ILLICIT SUBSTANCES AND PRESCRIBED MEDICATIONS WERE PRESENT. PROCEDURE CODES FA211 ESTABILISHED PATIENT [facility] CHARGE DISPOSITION & COMMUNICATION FOLLOW UP 3 MONTHS (REASON: BACK PAIN) ELECTRONICALLY SIGNED BY NIKI HERNANDEZ ON 09/21/2020 AT 08:23 AM EDT DISCLAIMER : THIS IS A VISIT SUMMARY EXTRACTED FROM THE [facility] CHART. IT IS NOT A COPY OF THE [employer] PROGRESS NOTE. [facility]
== END ==
LOC: M PAIN 11:15
PROVIDERS: ATTEND Family Medicine
DX: M47.817 Spondylosis without myelopathy or radiculopathy, lumbosacral region (principal); J45.909 Unspecified asthma, uncomplicated; F17.210 Nicotine dependence, cigarettes, uncomplicated; Z79.899 Other long term (current) drug therapy; Z79.891 Long term (current) use of opiate analgesic; Z88.8 Allergy status to other drugs, medicaments and biological substances

== ENCOUNTER → 2020-12-31 | Outpatient (CLI) | payer OTHER, MEDICAID | LOC: M PAIN 10:15 | PROVIDERS: ATTEND Anesthesiology | DX: Z53.21 Procedure and treatment not carried out due to patient leaving prior to being seen by health care provider (principal) ==

== ENCOUNTER → 2021-01-08 | Outpatient (CLI) | payer OTHER, MEDICAID | LOC: M PAIN 09:15 | PROVIDERS: ATTEND Anesthesiology | DX: Z53.8 Procedure and treatment not carried out for other reasons (principal) ==

== ENCOUNTER → 2021-03-17 | Outpatient (CLI) | payer OTHER, MEDICAID | LOC: M PAIN 14:45 | PROVIDERS: ATTEND Nurse Practitioner Family | DX: Z79.891 Long term (current) use of opiate analgesic (principal) ==

== ENCOUNTER 2022-10-03 14:02 | Emergency (ER) | payer OTHER ==
[~2022-10-03] VITALS: Ht 170.2 cm; Wt 119.1 kg
[~2022-10-03 14:02] MED LIST changes: +NYST-38 SS; -NYST50SS SS
[2022-10-03] MEDS ORDERED: VENTAER INH (14:30)
[2022-10-03] MEDS ORDERED: IBUPROFEN 400MG TAB PO ONE (18:55)
[2022-10-03] MEDS ORDERED: ALBU6.7H6 INH ×2 (19:03→19:04)
[2022-10-03] MEDS ORDERED: PRED20TA PO (19:04)
[2022-10-03 19:15] VITALS: BP 147/67; TEMP 99.4; O2SAT 97
== END 2022-10-03 19:44 | disposition home or self-care (01) ==
LOC: M ED 14:02
DX: J20.9 Acute bronchitis, unspecified (principal); G40.909 Epilepsy, unspecified, not intractable, without status epilepticus; K21.9 Gastro-esophageal reflux disease without esophagitis; J45.909 Unspecified asthma, uncomplicated; E78.5 Hyperlipidemia, unspecified; M06.9 Rheumatoid arthritis, unspecified; F17.200 Nicotine dependence, unspecified, uncomplicated; Z88.8 Allergy status to other drugs, medicaments and biological substances

== ENCOUNTER → 2024-02-08 | Outpatient (REF) | payer OTHER ==
[~2024-02-08] MED LIST changes: +ALBU6.7H6 INH; +VENTAER INH
[2024-02-08 16:32] LABS: BASO # 0.1 10^3/uL (0.0-0.2); BASO % 0.9 % (0.0-1.0); EOS # 0.2 10^3/uL (0.0-0.5); EOS % 1.8 % (0.0-3.0); HEMATOCRIT 38.4 % (36.0-47.0); HEMOGLOBIN 12.6 g/dl (12.0-15.5); LYMPH # 3.1 10^3/uL (1.5-5.0); LYMPH % 27.3 % (24.0-44.0); MEAN CORPUSCULAR HGB CONC 32.8 g/dl (32.0-36.5); MEAN CORPUSCULAR VOLUME 88.3 fl (80.0-96.0); MONO # 0.5 10^3/uL (0.0-0.8); MONO % 4.3 % (2.0-8.0); NEUTROPHILS # 7.4 10^3/uL (1.5-8.5); NEUTROPHILS % 65.2 % (36.0-66.0); PLATELET COUNT, AUTOMATED 404 10^3/uL (150-450); RED BLOOD COUNT 4.35 10^6/uL (4.00-5.40); WHITE BLOOD COUNT 11.3 10^3/uL (4.0-10.0)
[2024-02-08 16:46] LABS: INR 0.95; PARTIAL THROMBOPLASTIN TIME 31.6 SECONDS (24.8-34.2)
[2024-02-08 16:54] LABS: IRON (FE) 24 UG/DL (50-170); PERCENT SATURATION 5.8 % (13.2-45.0); TOTAL IRON BINDING CAPACITY 414 UG/DL (250-425)
[2024-02-08 16:55] LABS: ALBUMIN 3.4 G/DL (3.2-5.2); ALKALINE PHOSPHATASE 157 U/L (35-104); ALT/SGPT 25 U/L (7.0-40); AST/SGOT 24 U/L (<34); BILIRUBIN,TOTAL 0.3 MG/DL (0.3-1.2); BLOOD UREA NITROGEN 10 MG/DL (9-23); CALCIUM LEVEL 9.3 MG/DL (8.5-10.1); CARBON DIOXIDE LEVEL 25 MMOL/L (20-31); CHLORIDE LEVEL 106 MMOL/L (98-107); CHOLESTEROL LEVEL 222 MG/DL (<200); CHOLESTEROL RISK RATIO 6.09 (<5); CREATININE FOR GFR 0.79 MG/DL (0.55-1.30); GLOMERULAR FILTRATION RATE > 60.0 (>58); GLUCOSE, FASTING 105 MG/DL (60-100); HDL CHOLESTEROL 36.4 MG/DL (>40); NON-HDL-C 185.6 MG/DL; POTASSIUM SERUM 4.2 MMOL/L (3.5-5.1); SODIUM LEVEL 138 MMOL/L (136-145); TOTAL PROTEIN 7.3 G/DL (5.7-8.2); TRIGLYCERIDES LEVEL 128 MG/DL (<150)
[2024-02-08 16:57] LABS: HEMOGLOBIN A1c 4.9 % (4.0-6.0)
[2024-02-08 16:58] LABS: FERRITIN 11.1 NG/ML (7.3-270.7); TOTAL 25(OH) VITAMIN D 8.9 NG/ML (20.0-100.0)
[2024-02-08 16:59] LABS: THYROID STIMULATING HORMONE 6.612 uIU/ML (0.55-4.78)
== END ==
LOC: M LAB REF 16:14
PROVIDERS: ATTEND Physician Assistant
DX: N93.9 Abnormal uterine and vaginal bleeding, unspecified (principal); D64.9 Anemia, unspecified; E55.9 Vitamin D deficiency, unspecified; E66.9 Obesity, unspecified

== ENCOUNTER → 2024-03-21 | Outpatient (REF) | payer OTHER ==
[2024-03-21 19:13] LABS: FREE T4 1.08 NG/DL (0.89-1.76); THYROID STIMULATING HORMONE 4.618 uIU/ML (0.55-4.78)
== END ==
LOC: M LAB REF 16:53
PROVIDERS: ATTEND Physician Assistant
DX: E02 Subclinical iodine-deficiency hypothyroidism (principal)

== ENCOUNTER → 2024-04-10 | Outpatient (CLI) | payer OTHER | LOC: M WHC 12:08 | PROVIDERS: ATTEND Physician Assistant | DX: N93.9 Abnormal uterine and vaginal bleeding, unspecified (principal); N83.292 Other ovarian cyst, left side ==

== ENCOUNTER 2024-06-01 15:55 | Inpatient (IN) | payer OTHER ==
[~2024-06-01] VITALS: Ht 154.9 cm; Wt 118.3 kg
[2024-06-01 16:34] LABS: VENOUS BASE EXCESS 7.2 (-2.0-2.0); VENOUS HCO3 31.7 MMOL/L (23.0-27.0); VENOUS O2 SATURATION 85.1 % (60.0-80.0); VENOUS PARTIAL PRESSURE CO2 43.8 mmHg (38.0-50.0); VENOUS PARTIAL PRESSURE O2 47.6 mmHg (30.0-50.0); VENOUS PH 7.477 UNITS (7.330-7.430); VENOUS STANDARD HCO3 30.7 MMOL/L
[2024-06-01] MEDS: IPRATROPIUM 0.5MG/ALBUTEROL 2.5MG INH SOL UD 3ML NEB PRN (16:36)
[2024-06-01 16:38] LABS: BASO # 0.1 10^3/uL (0.0-0.2); BASO % 0.5 % (0.0-1.0); EOS # 0.2 10^3/uL (0.0-0.5); EOS % 1.2 % (0.0-3.0); HEMATOCRIT 41.9 % (36.0-47.0); LYMPH # 2.1 10^3/uL (1.5-5.0); MEAN CORPUSCULAR HEMOGLOBIN 28.3 pg (27.0-33.0); MEAN CORPUSCULAR HGB CONC 33.4 g/dl (32.0-36.5); MEAN CORPUSCULAR VOLUME 84.6 fl (80.0-96.0); MONO # 0.8 10^3/uL (0.0-0.8); MONO % 4.8 % (2.0-8.0); NEUTROPHILS # 13.1 10^3/uL (1.5-8.5); NEUTROPHILS % 79.8 % (36.0-66.0); PLATELET COUNT, AUTOMATED 370 10^3/uL (150-450); RED BLOOD COUNT 4.95 10^6/uL (4.00-5.40); WHITE BLOOD COUNT 16.4 10^3/uL (4.0-10.0)
[2024-06-01] MEDS: methylPREDNISolone 125MG 2ML VIAL IV ONE (16:41)
[2024-06-01 17:11] LABS: ALBUMIN 2.9 G/DL (3.2-5.2); ALKALINE PHOSPHATASE 185 U/L (35-104); ALT/SGPT 18 U/L (7.0-40); AST/SGOT 24 U/L (<34); BILIRUBIN,DIRECT 0.4 MG/DL (<0.4); BILIRUBIN,TOTAL 0.9 MG/DL (0.3-1.2); BLOOD UREA NITROGEN 10 MG/DL (9-23); CALCIUM LEVEL 8.7 MG/DL (8.5-10.1); CARBON DIOXIDE LEVEL 30 MMOL/L (20-31); CHLORIDE LEVEL 100 MMOL/L (98-107); CREATININE FOR GFR 0.71 MG/DL (0.55-1.30); GLOMERULAR FILTRATION RATE > 90.0 (>51); GLUCOSE, FASTING 100 MG/DL (60-100); POTASSIUM SERUM 3.3 MMOL/L (3.5-5.1); SODIUM LEVEL 137 MMOL/L (136-145); TOTAL PROTEIN 7.3 G/DL (5.7-8.2)
[2024-06-01 17:13] LABS: THYROID STIMULATING HORMONE 1.822 uIU/ML (0.55-4.78)
[2024-06-01] MEDS ORDERED: ISOVUE-370 76% 100ML VIAL As Ordered ONE (17:19)
[2024-06-01] MEDS ORDERED: PRED20TA PO (17:25)
[2024-06-01] MEDS ORDERED: ZITHTAB PO (17:25)
[2024-06-01] MEDS ORDERED: VENTAER INH (17:58)
[2024-06-01] MEDS ORDERED: SYNT25TA PO (17:58)
[2024-06-01] MEDS ORDERED: FERR325T3 PO (17:58)
[2024-06-01] MEDS ORDERED: HOME MED LIST COMPLETE! XX SCH ×2 (18:00→22:35)
[2024-06-01] MEDS: AZITHROMYCIN 250MG TABLET PO ONE (18:03)
[2024-06-01] MEDS ORDERED: ACETAMINOPHEN 500 MG TAB PO PRN (18:15)
[2024-06-01] MEDS: cefTRIAXone SOD 1 GM in DEXTROSE 5% (D5W) ADV/MINI-BAG 50 ML IV SCH (20:22)
[2024-06-01] MEDS: HEPARIN SOD (PORCINE) 5000UNITS/ML 1ML VIAL/SYRINGE SQ SCH (20:22)
[2024-06-01] MEDS: PANTOPRAZOLE 40MG TAB (PROTONIX) PO SCH (20:22)
[2024-06-01] MEDS: POTASSIUM CHLORIDE 10MEQ SR TABLET PO ONE (20:23)
[2024-06-01] MEDS: BUDESONIDE 0.5 MG/2 ML INHALATION SUSPENSION NEB SCH (20:41)
[2024-06-01] MEDS: ALBUTEROL SULFATE 2.5MG/0.5ML INH CONCENTRATE NEB SOLN NEB SCH (20:41)
[2024-06-01 21:05] VITALS: BP 130/90; TEMP 96.6; O2SAT 91
[2024-06-01 21:45] VITALS: O2SAT 94
[2024-06-01] MEDS ORDERED: IBUP200C25 PO (22:32)
[2024-06-01] MEDS ORDERED: [UNRECOGNIZED DRUG - CODE] PO (22:32)
[2024-06-01] MEDS ORDERED: VITAD400CA PO (22:32)
[2024-06-01] MEDS: methylPREDNISolone 125MG 2ML VIAL IV SCH (23:01)
[2024-06-02 04:04] VITALS: BP 106/65; TEMP 97; O2SAT 85
[2024-06-02 05:53] LABS: BASO % 0.3 % (0.0-1.0); HEMATOCRIT 40.8 % (36.0-47.0); HEMOGLOBIN 13.4 g/dl (12.0-15.5); LYMPH # 1.2 10^3/uL (1.5-5.0); LYMPH % 8.6 % (24.0-44.0); MEAN CORPUSCULAR HGB CONC 32.8 g/dl (32.0-36.5); MEAN CORPUSCULAR VOLUME 85.2 fl (80.0-96.0); MONO # 0.1 10^3/uL (0.0-0.8); MONO % 0.7 % (2.0-8.0); NEUTROPHILS # 12.7 10^3/uL (1.5-8.5); PLATELET COUNT, AUTOMATED 348 10^3/uL (150-450); RED BLOOD COUNT 4.79 10^6/uL (4.00-5.40); WHITE BLOOD COUNT 14.2 10^3/uL (4.0-10.0)
[2024-06-02 06:11] LABS: BLOOD UREA NITROGEN 12 MG/DL (9-23); CALCIUM LEVEL 8.9 MG/DL (8.5-10.1); CARBON DIOXIDE LEVEL 28 MMOL/L (20-31); CHLORIDE LEVEL 103 MMOL/L (98-107); CREATININE FOR GFR 0.64 MG/DL (0.55-1.30); GLOMERULAR FILTRATION RATE > 90.0 (>51); GLUCOSE, FASTING 235 MG/DL (60-100); POTASSIUM SERUM 3.5 MMOL/L (3.5-5.1); SODIUM LEVEL 139 MMOL/L (136-145)
[2024-06-02] MEDS: AZITHROMYCIN 250MG TABLET PO SCH (08:39)
[2024-06-02 12:00] VITALS: BP 118/65; TEMP 97; O2SAT 87
[2024-06-02] MEDS ORDERED: IBUPROFEN 600MG TAB PO PRN (13:25)
[2024-06-02] MEDS ORDERED: RAMELTEON 8 MG TAB (ROZEREM) PO PRN (18:50)
[2024-06-02] MEDS ORDERED: ALBUTEROL SULFATE 2.5MG/0.5ML INH CONCENTRATE NEB SOLN NEB PRN (18:50)
[2024-06-02] MEDS: IBUPROFEN 800 MG TAB PO PRN (18:59)
[2024-06-02] MEDS: FORMOTEROL FUMARATE 20 MCG/2 ML INHALATION SOLUTION (PERFOROMIST) INH SCH (20:35)
[2024-06-02 21:06] VITALS: BP 110/64; TEMP 97.3; O2SAT 92
[2024-06-02] MEDS: diphenhydrAMINE 50MG CAP PO PRN (21:06)
[2024-06-03 05:15] VITALS: BP 123/72; TEMP 97.3; O2SAT 93
[2024-06-03] MEDS: LEVOTHYROXINE 25MCG TABLET (0.025MG) PO SCH (05:18)
[2024-06-03] MEDS: methylPREDNISolone 125MG 2ML VIAL IV SCH (05:18)
[2024-06-03 05:47] LABS: BASO % 0.1 % (0.0-1.0); EOS % 0.1 % (0.0-3.0); HEMATOCRIT 37.7 % (36.0-47.0); HEMOGLOBIN 12.4 g/dl (12.0-15.5); LYMPH # 1.8 10^3/uL (1.5-5.0); LYMPH % 6.8 % (24.0-44.0); MEAN CORPUSCULAR HEMOGLOBIN 28.1 pg (27.0-33.0); MEAN CORPUSCULAR HGB CONC 32.9 g/dl (32.0-36.5); MEAN CORPUSCULAR VOLUME 85.5 fl (80.0-96.0); MONO # 0.7 10^3/uL (0.0-0.8); MONO % 2.6 % (2.0-8.0); NEUTROPHILS # 23.7 10^3/uL (1.5-8.5); NEUTROPHILS % 87.2 % (36.0-66.0); PLATELET COUNT, AUTOMATED 392 10^3/uL (150-450); RED BLOOD COUNT 4.41 10^6/uL (4.00-5.40); WHITE BLOOD COUNT 27.2 10^3/uL (4.0-10.0)
[2024-06-03 06:17] LABS: BLOOD UREA NITROGEN 17 MG/DL (9-23); CALCIUM LEVEL 8.5 MG/DL (8.5-10.1); CARBON DIOXIDE LEVEL 29 MMOL/L (20-31); CHLORIDE LEVEL 105 MMOL/L (98-107); CREATININE FOR GFR 0.61 MG/DL (0.55-1.30); GLOMERULAR FILTRATION RATE > 90.0 (>51); GLUCOSE, FASTING 156 MG/DL (60-100); POTASSIUM SERUM 3.6 MMOL/L (3.5-5.1); SODIUM LEVEL 141 MMOL/L (136-145)
[2024-06-03 07:13] VITALS: O2SAT 95
[2024-06-03 08:30] VITALS: BP 117/67; TEMP 97.9; O2SAT 95
[2024-06-03] MEDS ORDERED: PRED10TA2 PO (08:41)
[2024-06-03] MEDS ORDERED: AZIT500T5 PO (08:41)
[2024-06-03] MEDS ORDERED: SYMB16INH INH (08:41)
[2024-06-03] MEDS ORDERED: CEFD1CAP9 PO (08:41)
[2024-06-03] MEDS: CEFDINIR 300 MG CAP (OMNICEF) PO SCH (09:18)
[2024-06-03] MEDS: predniSONE 20 MG TAB PO SCH (09:18)
[2024-06-03 09:37] LABS: PROCALCITONIN <0.04 ng/ml
== END 2024-06-03 09:55 | disposition home or self-care (01) | DRG 720 ==
LOC: M ED 15:55 → M ED INP 18:08 → M MS5PR 21:07
PROVIDERS: ADMIT Internal Medicine Nephrology; ATTEND Internal Medicine Nephrology
DX: A41.9 Sepsis, unspecified organism (principal); J18.9 Pneumonia, unspecified organism; J45.901 Unspecified asthma with (acute) exacerbation; E87.6 Hypokalemia; E66.01 Morbid (severe) obesity due to excess calories; Z68.42 Body mass index [BMI] 45.0-49.9, adult; M19.90 Unspecified osteoarthritis, unspecified site; M54.59 Other low back pain; M51.06 Intervertebral disc disorders with myelopathy, lumbar region; E03.9 Hypothyroidism, unspecified; N81.10 Cystocele, unspecified; J44.9 Chronic obstructive pulmonary disease, unspecified; Z88.8 Allergy status to other drugs, medicaments and biological substances; Z79.899 Other long term (current) drug therapy

== ENCOUNTER 2024-12-17 10:27 | Emergency (ER) | payer MEDICAID, OTHER ==
[~2024-12-17] VITALS: Ht 157.5 cm; Wt 125.4 kg
[~2024-12-17 10:27] MED LIST changes: +AZIT500T5 PO; +CEFD1CAP9 PO; +FERR325T3 PO; +IBUP200C25 PO; +SYMB16INH INH; +SYNT25TA PO; +VITAD400CA PO; +ZITHTAB PO; +[UNRECOGNIZED DRUG - CODE] PO
[2024-12-17 10:40] VITALS: BP 146/76; TEMP 98.1; O2SAT 97
[2024-12-17 12:34] LABS: CALCIUM LEVEL 9.8 MG/DL (8.5-10.1); CARBON DIOXIDE LEVEL 26.0 MMOL/L (20-31); CHLORIDE LEVEL 108.0 MMOL/L (98-107); CREATININE FOR GFR 0.82 MG/DL (0.55-1.30); GLOMERULAR FILTRATION RATE 87.1 (>51); POTASSIUM SERUM 4.3 MMOL/L (3.5-5.1); SODIUM LEVEL 140.0 MMOL/L (136-145)
[2024-12-17 12:35] LABS: BASO # 0.1 10^3/uL (0.0-0.2); BASO % 1.0 % (0.0-1.0); EOS # 0.3 10^3/uL (0.0-0.5); EOS % 2.5 % (0.0-3.0); LYMPH # 2.7 10^3/uL (1.5-5.0); LYMPH % 23.5 % (24.0-44.0); MONO # 0.4 10^3/uL (0.0-0.8); MONO % 3.5 % (2.0-8.0); NEUTROPHILS # 7.7 10^3/uL (1.5-8.5); NEUTROPHILS % 68.7 % (36.0-66.0); PLATELET COUNT, AUTOMATED 407 10^3/uL (150-450)
[2024-12-17 12:57] LABS: INR 0.86
== END 2024-12-17 13:56 | disposition home or self-care (01) ==
LOC: M ED 10:27
DX: N93.8 Other specified abnormal uterine and vaginal bleeding (principal); I10 Essential (primary) hypertension; Z79.899 Other long term (current) drug therapy; Z88.8 Allergy status to other drugs, medicaments and biological substances